=== PATIENT | male | born 1940 | race Caucasian/White ===

== ENCOUNTER 2020-02-20 09:45 | Outpatient (REF) | payer MEDICARE, BC, SELFPAY ==
[2020-02-20 11:23] LABS: MANUAL DIFF FLAG NO
[2020-02-20 11:44] LABS: Basophils Percent Auto 0.3 % (0-2); Eosinophils Absolute Auto 0.2 X10*3/uL (0.0-0.4); Eosinophils Percent Auto 1.6 % (0-4); Hematocrit 44.2 % (42-52); Hemoglobin 14.8 g/dl (14.0-18.0); Imm Gran Abs Auto 0.04 X10*3/uL (0.00-0.03); Imm Gran Pct Auto 0.4 % (0.0-0.4); Lymphocytes Absolute Auto 2.4 X10*3/uL (1.2-4.9); Lymphocytes Percent Auto 23.4 % (20-40); Mean Corpuscular HGB Conc 33.5 g/dl (31.0-36.0); Mean Corpuscular Hemoglobin 32.6 pg (27.0-33.0); Mean Corpuscular Volume 97.4 fL (80-98); Mean Platelet Volume 11.3 fL (9.4-12.4); Monocytes Absolute Auto 1.1 X10*3/uL (0.1-1.2); Monocytes Percent Auto 10.9 % (2-11); Neutrophils Absolute Auto 6.6 X10*3/uL (2.0-8.3); Neutrophils Percent Auto 63.4 % (45-73); Platelet Count 250 X10*3/uL (160-400); Red Blood Count 4.54 X10*6/uL (4.60-5.80); Red Cell Distribution Width 12.9 % (11.0-16.0); White Blood Count 10.3 X10*3/uL (4.8-10.8)
[2020-02-20 11:57] LABS: Alanine Aminotransferase 21 U/L (0-40); Albumin Level 4.1 g/dL (3.5-5.0); Alkaline Phosphatase 59 U/L (39-117); Anion Gap 13 (12-20); Aspartate Amino Transferase 22 U/L (5-37); Bilirubin Total 1.6 mg/dL (0.0-1.0); Blood Urea Nitrogen 32 mg/dL (9-16); Calcium 9.2 mg/dL (8.4-10.2); Carbon Dioxide 28 mmol/L (22-29); Chloride 105 mmol/L (96-108); Cholesterol 136 mg/dL; Estimated Glomerular Filt Rate 48; Glucose Fasting 91 mg/dL (60-99); HDL Cholesterol 38 mg/dL; LDL Cholesterol Calculated 82 mg/dl; Potassium 5.4 mmol/l (3.3-5.1); Sodium 141 mmol/L (135-145); Total Protein 6.3 g/dL (6.5-8.0); Triglycerides 80 mg/dL
[2020-02-20 12:23] LABS: TSH reflex Free T4 2.38 mIU/mL (0.32-4.0)
== END 2020-02-20 09:46 | disposition home or self-care (01) ==
LOC: HO.HMGCLDS 09:45
PROVIDERS: PCP Internal Medicine; Visit Provider Internal Medicine
DX: E78.5 Hyperlipidemia, unspecified (principal); N40.0 Benign prostatic hyperplasia without lower urinary tract symptoms; I73.9 Peripheral vascular disease, unspecified; I10 Essential (primary) hypertension
CPT/HCPCS: 36415; 80053; 80061; 84443; 85025

== ENCOUNTER 2020-03-07 09:28 | Outpatient (REF) | payer MEDICARE, BC, SELFPAY ==
[2020-03-07 11:51] LABS: Anion Gap 13 (12-20); Blood Urea Nitrogen 21 mg/dL (9-16); Calcium 8.9 mg/dL (8.4-10.2); Carbon Dioxide 28 mmol/L (22-29); Chloride 108 mmol/L (96-108); Estimated Glomerular Filt Rate 51; Glucose Fasting 89 mg/dL (60-99); Potassium 5.2 mmol/l (3.3-5.1); Sodium 144 mmol/L (135-145)
== END 2020-03-07 09:29 | disposition home or self-care (01) ==
LOC: HO.HMGCLDS 09:28
PROVIDERS: PCP Internal Medicine; Visit Provider Internal Medicine
DX: E87.5 Hyperkalemia (principal); I10 Essential (primary) hypertension
CPT/HCPCS: 80048

== ENCOUNTER 2020-08-12 09:33 | Outpatient (REF) | payer MEDICARE, BC, SELFPAY ==
[2020-08-12 11:46] LABS: Alanine Aminotransferase 21 U/L (0-40); Anion Gap 13 (12-20); Aspartate Amino Transferase 20 U/L (5-37); Blood Urea Nitrogen 27 mg/dL (9-16); Carbon Dioxide 25 mmol/L (22-29); Chloride 107 mmol/L (96-108); Cholesterol 137 mg/dL; Estimated Glomerular Filt Rate 48; Glucose Fasting 86 mg/dL (60-99); HDL Cholesterol 39 mg/dL; LDL Cholesterol Calculated 79 mg/dl; Potassium 4.9 mmol/L (3.3-5.1); Sodium 140 mmol/L (135-145); Triglycerides 95 mg/dL
== END 2020-08-12 09:34 | disposition home or self-care (01) ==
LOC: HO.HMGCLDS 09:33
PROVIDERS: PCP Internal Medicine; Visit Provider Internal Medicine
DX: E87.5 Hyperkalemia (principal); E78.5 Hyperlipidemia, unspecified; I10 Essential (primary) hypertension
CPT/HCPCS: 36415; 80048; 80061; 84450; 84460

== ENCOUNTER 2021-04-07 08:30 | Outpatient (REF) | payer MEDICARE, BC, SELFPAY ==
[2021-04-07 12:11] LABS: Vitamin D 25-OH Total 23.3 ng/mL (>30)
[2021-04-07 12:12] LABS: Alanine Aminotransferase 17 U/L (0-40); Anion Gap 13 (12-20); Aspartate Amino Transferase 15 U/L (5-37); Blood Urea Nitrogen 33 mg/dL (9-16); Calcium 9.1 mg/dL (8.4-10.2); Carbon Dioxide 26 mmol/L (22-29); Chloride 108 mmol/L (96-108); Cholesterol 160 mg/dL; Estimated Glomerular Filt Rate 45; Glucose Fasting 85 mg/dL (60-99); HDL Cholesterol 42 mg/dL; LDL Cholesterol Calculated 90 mg/dl; Sodium 142 mmol/L (135-145); Triglycerides 140 mg/dL
[2021-04-07 12:19] LABS: Prostate Specific Antigen 4.68 ng/mL (<0.05-4.0)
== END 2021-04-07 08:31 | disposition home or self-care (01) ==
LOC: HO.HMGCLDS 08:30
PROVIDERS: PCP Internal Medicine; Visit Provider Urology
DX: Z12.5 Encounter for screening for malignant neoplasm of prostate (principal); R97.20 Elevated prostate specific antigen [PSA]; E78.5 Hyperlipidemia, unspecified; I10 Essential (primary) hypertension
CPT/HCPCS: 36415; 80048; 80061; 82306; 84153; 84450; 84460

== ENCOUNTER 2021-08-28 08:33 | Outpatient (REF) | payer MEDICARE, BC, SELFPAY ==
[2021-08-28 12:37] LABS: Vitamin D 25-OH Total 44.9 ng/mL (>30)
== END 2021-08-28 08:34 | disposition home or self-care (01) ==
LOC: HO.HMGCLDS 08:33
PROVIDERS: PCP Internal Medicine; Visit Provider Internal Medicine
DX: E55.9 Vitamin D deficiency, unspecified (principal)
CPT/HCPCS: 36415; 82306

== ENCOUNTER 2022-03-30 11:48 | Outpatient (REF) | payer MEDICARE, BC, SELFPAY ==
[2022-03-30 16:27] LABS: Prostate Specific Antigen 4.73 ng/mL (<0.05-4.0)
== END 2022-03-30 11:49 | disposition home or self-care (01) ==
LOC: HO.HMGCLDS 11:48
PROVIDERS: Absent Provider Internal Medicine; PCP Internal Medicine; Visit Provider Nurse Practitioner Family
DX: R97.20 Elevated prostate specific antigen [PSA] (principal); Z12.5 Encounter for screening for malignant neoplasm of prostate
CPT/HCPCS: 36415; 84153

== ENCOUNTER 2022-06-04 12:08 | Emergency (ER) | payer MEDICARE, BC, SELFPAY ==
--- NOTE | ~2022-06-04 | XR_ITS ---
EXAMINATION: XR CHEST CLINICAL INFORMATION: Dizziness and neck pain. COMPARISON: None available. TECHNIQUE: 2 views of the chest were obtained. FINDINGS: The lungs are well-expanded and clear. The heart size and pulmonary vascularity is normal. No gross bony abnormality seen. XR/XR chest 2V IMPRESSION: Unremarkable chest exam. .
--- NOTE | ~2022-06-04 | CT_ITS ---
EXAMINATION: CT HEAD WITHOUT CONTRAST CLINICAL INFORMATION: Vertigo. COMPARISON: None available. TECHNIQUE: Contiguous axial imaging was performed from the skull base to vertex without intravenous administration of contrast. This CT examination was performed using dose optimization techniques as appropriate, variously including the following: *Automated exposure control *Adjustment of mA and/or kV according to patient size (this includes techniques or standardized protocols for targeted exams where dose is matched to indication/reason for exam; i.e. extremities or head) *Use of iterative reconstruction technique DLP: 541 mGy-cm FINDINGS: There is no acute intra-axial, extra-axial bleed, masses or midline shift. There is no acute infarction in evolution. The suh to white matter differentiation is maintained. The lateral ventricles are symmetrical in size and configuration without enlargement. Bone windows reveal no calvarial abnormality. There is no scalp soft tissue normality. There is mild mucoperiosteal thickening right mastoid sinus. The left mastoid sinus and bilateral paranasal sinuses are well-aerated. CT/CT head/brain wo IV con IMPRESSION: No acute intracranial process seen
[2022-06-04 12:15] VITALS: BP 156/48; PULSE 52; RESP 16; TEMP 36.1; O2SAT 97; BMI 29.2
--- NOTE | 2022-06-04 12:15 | ED.GENADULT ---
HPI - General Adult General Chief complaint: Weakness <SONNY Bruner - Last Filed: 06/04/22 12:15> Stated complaint: weakness, dizzy, arm and neck pain <SONNY Bruner - Last Filed: 06/04/22 12:15> Time Seen by Provider: 06/04/22 15:13 <SONNY Bruner - Last Filed: 06/04/22 12:15> Source: patient <Rainer Richardson MD - Last Filed: 06/04/22 16:53> Mode of arrival: ambulatory <Rainer Richardson MD - Last Filed: 06/04/22 16:53> Limitations: no limitations <Rainer Richardson MD - Last Filed: 06/04/22 16:53> History of Present Illness HPI narrative: patient with weakness and dizziness for the past couple of day. By midday he is exhausted and takes a long nap. He did feel the room spinning once but now it is mostly a balance issue. <Rainer Richardson MD - Last Filed: 06/04/22 16:53> Onset (ago): day(s) <Rainer Richardson MD - Last Filed: 06/04/22 16:53> Severity: mild <Rainer Richardson MD - Last Filed: 06/04/22 16:53> Related Data Home medications: Home Medications Medication Instructions Recorded Confirmed [id number] acid 300 1 tab PO DAILY 06/17/21 06/04/22 mcg-lycopene 600 mcg-lutein 300 mcg tablet (Centrum Silver Men) Previous Rx's Medication Instructions Recorded blood pressure monitor #1 ea 02/26/20 tamsulosin 0.4 mg capsule 0.4 mg PO BEDTIME #90 caps 07/27/21 amlodipine 5 mg tablet 5 mg PO DAILY #90 tabs 07/29/21 aspirin 81 mg tablet,delayed 81 mg PO DAILY #90 tabs 07/29/21 release (Adult Low Dose Aspirin) atorvastatin 40 mg tablet 40 mg PO DAILY #90 tabs 07/29/21 metoprolol succinate 100 mg 100 mg PO DAILY #90 tabs 07/29/21 tablet,extended release 24 hr lisinopril 20 mg tablet 20 mg PO ONCE 3 months #90 tabs 01/25/22 meclizine 25 mg tablet 25 mg PO TID #20 tabs 06/04/22 <SONNY Bruner - Last Filed: 06/04/22 12:15> Allergies/adverse reactions: Allergies Allergy/AdvReac Type Severity Reaction Status Date / Time No Known Allergies Allergy Verified 06/04/22 11:15 [No Known Allergies*] <SONNY Bruner - Last Filed: 06/04/22 12:15> Review of Systems Review of Systems: Yes all other systems are reviewed and are negative <Rainer Richardson MD - Last Filed: 06/04/22 16:53> Constitutional: Comments: dizziness and vertigo <Rainer Richardson MD - Last Filed: 06/04/22 16:53> FOR[facility]LY [facility], LATER [facility] Past Medical History Medical History: Medical History Benign prostatic hyperplasia CAD (coronary artery disease) CKD (chronic kidney disease) stage 2, GFR 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 ml/min Diverticulosis Dyslipidemia Essential hypertension Former smoker, stopped smoking in distant past Gallstone History of DVT of lower extremity Hx of myocardial infarction Hyperkalemia PVD (peripheral vascular disease) <SONNY Bruner - Last Filed: 06/04/22 12:15> Surgical History: Surgical History Status post insertion of iliac artery stent <SONNY Bruner - Last Filed: 06/04/22 12:15> Family History Family History: Family History Father Heart problem Mother Heart problem <SONNY Bruner - Last Filed: 06/04/22 12:15> Social History Social History: Social History Alcohol intake: current Alcohol intake frequency: a few times a week Alcohol type: wine Patient Tobacco Use Status: Former Tobacco user Advance Directives: No Advance Directives Information Provided: Yes <SONNY Bruner - Last Filed: 06/04/22 12:15> Physical Exam ED Vital Signs: Vital Signs - 24 hr 06/04/22 12:15 Temperature 97.0 F Pulse Rate 52 Respiratory Rate 16 Blood Pressure 156/48 H Pulse Oximetry 97 Oxygen Delivery Method Room Air BMI result Body Mass Index 29.2 <SONNY Bruner - Last Filed: 06/04/22 12:15> Vital Signs - 24 hr 06/04/22 12:15 Temperature 97.0 F Pulse Rate 52 Respiratory Rate 16 Blood Pressure 156/48 H Pulse Oximetry 97 Oxygen Delivery Method Room Air BMI result Body Mass Index 29.2 <Rainer Richardson MD - Last Filed: 06/04/22 16:53> Const General: healthy appearing <Rainer Richardson MD - Last Filed: 06/04/22 16:53> Nutritional Appearance: average body habitus <Rainer Richardson MD - Last Filed: 06/04/22 16:53> Orientation/consciousness: oriented to person and patient oriented x3 <Rainer Richardson MD - Last Filed: 06/04/22 16:53> Limitations: no limitations <Rainer Richardson MD - Last Filed: 06/04/22 16:53> HENMT Other: right TM with myringostomy tube <Rainer Richardson MD - Last Filed: 06/04/22 16:53> Head: Yes normal to inspection <Rainer Richardson MD - Last Filed: 06/04/22 16:53> General nose exam: Normal external nose present <Rainer Richardson MD - Last Filed: 06/04/22 16:53> Mouth: Normal oral and palatal mucosa present and oropharynx normal <Rainer Richardson MD - Last Filed: 06/04/22 16:53> Throat: Yes posterior oropharynx normal <Rainer Richardson MD - Last Filed: 06/04/22 16:53> Eyes Other: nystagmus right and left with no nausea <Rainer Richardson MD - Last Filed: 06/04/22 16:53> Neck Neck: Yes normal visual inspection <Rainer Richardson MD - Last Filed: 06/04/22 16:53> Chest Chest palpation & inspection: normal inspection of the chest <Rainer Richardson MD - Last Filed: 06/04/22 16:53> Resp Auscultation: clear to auscultation bilaterally <Rainer Richardson MD - Last Filed: 06/04/22 16:53> Cardio Jugular venous distension: no JVD <Rainer Richardson MD - Last Filed: 06/04/22 16:53> Rate: regular rate <Rainer Richardson MD - Last Filed: 06/04/22 16:53> Rhythm: regular rhythm <Rainer Richardson MD - Last Filed: 06/04/22 16:53> Heart sounds: S1 normal heart sound present and S2 normal heart sound present <Rainer Richardson MD - Last Filed: 06/04/22 16:53> GI Inspection: Yes normal to inspection <Rainer Richardson MD - Last Filed: 06/04/22 16:53> Palpation (GI): Soft to palpation, nontender and No hepatosplenomegaly present <Rainer Richardson MD - Last Filed: 06/04/22 16:53> Auscultation: normal bowel sounds <Rainer Richardson MD - Last Filed: 06/04/22 16:53> General: Yes no CVA tenderness <Rainer Richardson MD - Last Filed: 06/04/22 16:53> Back/Spine/Pelvis Back: no CVA tenderness <Rainer Richardson MD - Last Filed: 06/04/22 16:53> Skin General skin exam: no rashes or lesions noted <Rainer Richardson MD - Last Filed: 06/04/22 16:53> Neuro General: oriented to person and patient oriented x3 <Rainer Richardson MD - Last Filed: 06/04/22 16:53> Cranial nerves: Yes CN's II-XII intact bilaterally <Rainer Richardson MD - Last Filed: 06/04/22 16:53> Motor exam (neuro): 5/5 motor strength present throughout <Rainer Richardson MD - Last Filed: 06/04/22 16:53> Extrem General: Yes normal to inspection <Rainer Richardson MD - Last Filed: 06/04/22 16:53> Psych Appearance: grossly normal <Rainer Richardson MD - Last Filed: 06/04/22 16:53> Course Course Course Narrative: RME performed by Sonia Abraham PA-C. Patient is an 81 year old male with a hx of CAD, PVD, HTN, and CKD. Patient was seen at urgent care where they recommended he be seen in the ER. Patient is tired and weak. Labs and EKG ordered. <SONNY Bruner - Last Filed: 06/04/22 12:15> Reevaluation(s) Reevaluation #1: Impression is vertigo will start meclizine and dc home <Rainer Richardson MD - Last Filed: 06/04/22 16:53> Time: 16:06 <Rainer Richardson MD - Last Filed: 06/04/22 16:53> Medications Administered Discontinued Medications Generic Name Dose Route Start Last Admin Trade Name Freq PRN Reason Stop Dose Admin Meclizine HCl 25 mg 06/04/22 15:53 06/04/22 16:35 Meclizine Hcl 25 Mg Tablet PO 06/04/22 15:54 25 mg ONCE ONE Administration <SONNY Bruner - Last Filed: 06/04/22 12:15> Medications Administered Discontinued Medications Generic Name Dose Route Start Last Admin Trade Name Freq PRN Reason Stop Dose Admin Meclizine HCl 25 mg 06/04/22 15:53 06/04/22 16:35 Meclizine Hcl 25 Mg Tablet PO 06/04/22 15:54 25 mg ONCE ONE Administration <Rainer Richardson MD - Last Filed: 06/04/22 16:53> Medical Decision Making Differential Diagnosis Differential Diagnoses: The differential diagnosis associated with the presentation includes (vertigo, brain mass, anemia, weakness, electrolyte abnormality all considered) <Rainer Richardson MD - Last Filed: 06/04/22 16:53> Admission/Observation Consideration of admission/observation: Escalation of care including admission/observation considered (In and 81yo with worsening dizziness and weakness, admission was considered) <Rainer Richardson MD - Last Filed: 06/04/22 16:53> Lab Data MDM Lab Attestation statement: I reviewed the patient's lab results. (renal insufficiency is chronic) <Rainer Richardson MD - Last Filed: 06/04/22 16:53> Result Diagrams: 06/04/22 12:34 06/04/22 12:34 <SONNY Bruner - Last Filed: 06/04/22 12:15> Labs: Lab Results 06/04/22 06/04/22 06/04/22 Range/Units 12:34 12:34 12:34 WBC 8.1 (4.8-10.8) X10*3/uL RBC 4.52 L (4.60-5.80) X10*6/uL Hgb 14.5 (14.0-18.0) g/dl Hct 42.9 (42.0-52.0) % MCV 94.9 (80.0-98.0) fL MCH 32.1 (27.0-33.0) pg MCHC 33.8 (31.0-36.0) g/dl RDW 13.1 (11.0-16.0) % Plt Count 232 (160-400) X10*3/uL MPV 10.3 (9.4-12.4) fL Immature Gran % (Auto) 0.4 (0.0-0.4) % Neut % (Auto) 56.1 (45-73) % Lymph % (Auto) 29.9 (20-40) % Sanders % (Auto) 11.3 H (2-11) % Eos % (Auto) 2.1 (0-4) % Baso % (Auto) 0.2 (0-2) % Lymph # (Auto) 2.4 (1.2-4.9) X10*3/uL Sanders # (Auto) 0.9 (0.1-1.2) X10*3/uL Eos # (Auto) 0.2 (0.0-0.4) X10*3/uL Baso # (Auto) 0.0 (0.0-0.2) X10*3/uL Abs Immat Gran (auto) 0.03 (0.00-0.03) X10*3/uL Absolute Neuts (auto) 4.5 (2.0-8.3) x10*3/uL Absolute Nucleated RBC 0.000 (0.0-0.012) X10*3/uL Nucleated RBC % (auto) 0.0 (0.0-0.2) /100WBC Sodium 140 (135-145) mmol/L Potassium 4.6 (3.3-5.1) mmol/L Chloride 110 H (96-108) mmol/L Carbon Dioxide 25 (22-29) mmol/L Anion Gap 10 L (12-20) BUN 30 H (9-16) mg/dL Creatinine 1.69 H (0.5-1.4) mg/dL Estim Creat Clear Calc 32.1 Estimated GFR 39 Random Glucose 98 (60-115) mg/dL Calcium 8.5 D (8.4-10.2) mg/dL Magnesium 2.1 (1.6-2.6) mg/dL Total Bilirubin 1.8 H (0.0-1.0) mg/dL AST 23 (5-37) U/L ALT 25 (0-40) U/L Alkaline Phosphatase 59 (39-117) U/L Troponin I High Sens (<3.5-35.0) ng/L B-Natriuretic Peptide 92 (<100) pg/mL Total Protein 5.8 L (6.5-8.0) g/dL Albumin 3.7 (3.5-5.0) g/dL COVID-19 (KAREN) (Negative) COVID-19 Clin Com 06/04/22 06/04/22 Range/Units 12:34 12:34 WBC (4.8-10.8) X10*3/uL RBC (4.60-5.80) X10*6/uL Hgb (14.0-18.0) g/dl Hct (42.0-52.0) % MCV (80.0-98.0) fL MCH (27.0-33.0) pg MCHC (31.0-36.0) g/dl RDW (11.0-16.0) % Plt Count (160-400) X10*3/uL MPV (9.4-12.4) fL Immature Gran % (Auto) (0.0-0.4) % Neut % (Auto) (45-73) % Lymph % (Auto) (20-40) % Sanders % (Auto) (2-11) % Eos % (Auto) (0-4) % Baso % (Auto) (0-2) % Lymph # (Auto) (1.2-4.9) X10*3/uL Sanders # (Auto) (0.1-1.2) X10*3/uL Eos # (Auto) (0.0-0.4) X10*3/uL Baso # (Auto) (0.0-0.2) X10*3/uL Abs Immat Gran (auto) (0.00-0.03) X10*3/uL Absolute Neuts (auto) (2.0-8.3) x10*3/uL Absolute Nucleated RBC (0.0-0.012) X10*3/uL Nucleated RBC % (auto) (0.0-0.2) /100WBC Sodium (135-145) mmol/L Potassium (3.3-5.1) mmol/L Chloride (96-108) mmol/L Carbon Dioxide (22-29) mmol/L Anion Gap (12-20) BUN (9-16) mg/dL Creatinine (0.5-1.4) mg/dL Estim Creat Clear Calc Estimated GFR Random Glucose (60-115) mg/dL Calcium (8.4-10.2) mg/dL Magnesium (1.6-2.6) mg/dL Total Bilirubin (0.0-1.0) mg/dL AST (5-37) U/L ALT (0-40) U/L Alkaline Phosphatase (39-117) U/L Troponin I High Sens 5.6 (<3.5-35.0) ng/L B-Natriuretic Peptide (<100) pg/mL Total Protein (6.5-8.0) g/dL Albumin (3.5-5.0) g/dL COVID-19 (KAREN) Negative (Negative) COVID-19 Clin Com See Note <SONNY Bruner - Last Filed: 06/04/22 12:15> Lab Results 06/04/22 06/04/22 06/04/22 Range/Units 12:34 12:34 12:34 WBC 8.1 (4.8-10.8) X10*3/uL RBC 4.52 L (4.60-5.80) X10*6/uL Hgb 14.5 (14.0-18.0) g/dl Hct 42.9 (42.0-52.0) % MCV 94.9 (80.0-98.0) fL MCH 32.1 (27.0-33.0) pg MCHC 33.8 (31.0-36.0) g/dl RDW 13.1 (11.0-16.0) % Plt Count 232 (160-400) X10*3/uL MPV 10.3 (9.4-12.4) fL Immature Gran % (Auto) 0.4 (0.0-0.4) % Neut % (Auto) 56.1 (45-73) % Lymph % (Auto) 29.9 (20-40) % Sanders % (Auto) 11.3 H (2-11) % Eos % (Auto) 2.1 (0-4) % Baso % (Auto) 0.2 (0-2) % Lymph # (Auto) 2.4 (1.2-4.9) X10*3/uL Sanders # (Auto) 0.9 (0.1-1.2) X10*3/uL Eos # (Auto) 0.2 (0.0-0.4) X10*3/uL Baso # (Auto) 0.0 (0.0-0.2) X10*3/uL Abs Immat Gran (auto) 0.03 (0.00-0.03) X10*3/uL Absolute Neuts (auto) 4.5 (2.0-8.3) x10*3/uL Absolute Nucleated RBC 0.000 (0.0-0.012) X10*3/uL Nucleated RBC % (auto) 0.0 (0.0-0.2) /100WBC Sodium 140 (135-145) mmol/L Potassium 4.6 (3.3-5.1) mmol/L Chloride 110 H (96-108) mmol/L Carbon Dioxide 25 (22-29) mmol/L Anion Gap 10 L (12-20) BUN 30 H (9-16) mg/dL Creatinine 1.69 H (0.5-1.4) mg/dL Estim Creat Clear Calc 32.1 Estimated GFR 39 Random Glucose 98 (60-115) mg/dL Calcium 8.5 D (8.4-10.2) mg/dL Magnesium 2.1 (1.6-2.6) mg/dL Total Bilirubin 1.8 H (0.0-1.0) mg/dL AST 23 (5-37) U/L ALT 25 (0-40) U/L Alkaline Phosphatase 59 (39-117) U/L Troponin I High Sens (<3.5-35.0) ng/L B-Natriuretic Peptide 92 (<100) pg/mL Total Protein 5.8 L (6.5-8.0) g/dL Albumin 3.7 (3.5-5.0) g/dL COVID-19 (KAREN) (Negative) COVID-19 Clin Com 06/04/22 06/04/22 Range/Units 12:34 12:34 WBC (4.8-10.8) X10*3/uL RBC (4.60-5.80) X10*6/uL Hgb (14.0-18.0) g/dl Hct (42.0-52.0) % MCV (80.0-98.0) fL MCH (27.0-33.0) pg MCHC (31.0-36.0) g/dl RDW (11.0-16.0) % Plt Count (160-400) X10*3/uL MPV (9.4-12.4) fL Immature Gran % (Auto) (0.0-0.4) % Neut % (Auto) (45-73) % Lymph % (Auto) (20-40) % Sanders % (Auto) (2-11) % Eos % (Auto) (0-4) % Baso % (Auto) (0-2) % Lymph # (Auto) (1.2-4.9) X10*3/uL Sanders # (Auto) (0.1-1.2) X10*3/uL Eos # (Auto) (0.0-0.4) X10*3/uL Baso # (Auto) (0.0-0.2) X10*3/uL Abs Immat Gran (auto) (0.00-0.03) X10*3/uL Absolute Neuts (auto) (2.0-8.3) x10*3/uL Absolute Nucleated RBC (0.0-0.012) X10*3/uL Nucleated RBC % (auto) (0.0-0.2) /100WBC Sodium (135-145) mmol/L Potassium (3.3-5.1) mmol/L Chloride (96-108) mmol/L Carbon Dioxide (22-29) mmol/L Anion Gap (12-20) BUN (9-16) mg/dL Creatinine (0.5-1.4) mg/dL Estim Creat Clear Calc Estimated GFR Random Glucose (60-115) mg/dL Calcium (8.4-10.2) mg/dL Magnesium (1.6-2.6) mg/dL Total Bilirubin (0.0-1.0) mg/dL AST (5-37) U/L ALT (0-40) U/L Alkaline Phosphatase (39-117) U/L Troponin I High Sens 5.6 (<3.5-35.0) ng/L B-Natriuretic Peptide (<100) pg/mL Total Protein (6.5-8.0) g/dL Albumin (3.5-5.0) g/dL COVID-19 (KAREN) Negative (Negative) COVID-19 Clin Com See Note <Rainer Richardson MD - Last Filed: 06/04/22 16:53> Independent Interpretation I performed an independent interpretation of an: EKG (sinus bradycardia no st or twave changes) and CT Scan (head ct: atrophy, no mass, blood or lesions noted) <Rainer Richardson MD - Last Filed: 06/04/22 16:53> Discharge Plan Discharge Clinical Impression: Vertigo <SONNY Bruner - Last Filed: 06/04/22 12:15> Patient Disposition: Still a Patient <SONNY Bruner - Last Filed: 06/04/22 12:15> Instructions: Vertigo (ED) <SONNY Bruner - Last Filed: 06/04/22 12:15> Prescriptions: New meclizine 25 mg tablet 25 mg PO TID Qty: 20 0RF Rx Instructions: take only for dizziness No Action (DME) blood pressure monitor Kit See Rx Instructions .ROUTE .MEDSUPPLY Qty: 1 0RF Rx Instructions: Check blood pressure as directed tamsulosin 0.4 mg capsule 0.4 mg PO BEDTIME Qty: 90 3RF atorvastatin 40 mg tablet 40 mg PO DAILY Qty: 90 3RF aspirin [Adult Low Dose Aspirin] 81 mg tablet,delayed release (DR/EC) 81 mg PO DAILY Qty: 90 3RF amlodipine 5 mg tablet 5 mg PO DAILY Qty: 90 3RF metoprolol succinate 100 mg tablet extended release 24 hr 100 mg PO DAILY Qty: 90 3RF lisinopril 20 mg tablet 20 mg PO ONCE 90 Days Qty: 90 1RF Centrum Silver Men 300-600-300 mcg tablet 1 tab PO DAILY <SONNY Bruner - Last Filed: 06/04/22 12:15> Referrals: Krissy Alaniz MD [Primary Care Provider] - 5 days <SONNY Bruner - Last Filed: 06/04/22 12:15>
--- NOTE | 2022-06-04 12:16 | ECG_ITS ---
Test Reason : weakness Blood Pressure : / mmHG Vent. Rate : 051 BPM Atrial Rate : 051 BPM P-R Int : 180 ms QRS Dur : 086 ms QT Int : 450 ms P-R-T Axes : 031 018 059 degrees QTc Int : 414 ms Sinus bradycardia Possible Anterior infarct , age undetermined Abnormal ECG When compared with ECG of 19-AUG-2019 06:37, No significant change was found Referred By: Sonia Abraham Electronically Signed By:Jermaine Marcus
[2022-06-04 12:41] LABS: MANUAL DIFF FLAG NO
[2022-06-04 12:43] LABS: Basophils Percent Auto 0.2 % (0-2); Eosinophils Absolute Auto 0.2 X10*3/uL (0.0-0.4); Eosinophils Percent Auto 2.1 % (0-4); Hematocrit 42.9 % (42.0-52.0); Hemoglobin 14.5 g/dl (14.0-18.0); Imm Gran Abs Auto 0.03 X10*3/uL (0.00-0.03); Imm Gran Pct Auto 0.4 % (0.0-0.4); Lymphocytes Absolute Auto 2.4 X10*3/uL (1.2-4.9); Lymphocytes Percent Auto 29.9 % (20-40); Mean Corpuscular HGB Conc 33.8 g/dl (31.0-36.0); Mean Corpuscular Hemoglobin 32.1 pg (27.0-33.0); Mean Corpuscular Volume 94.9 fL (80.0-98.0); Mean Platelet Volume 10.3 fL (9.4-12.4); Monocytes Absolute Auto 0.9 X10*3/uL (0.1-1.2); Monocytes Percent Auto 11.3 % (2-11); Neutrophils Absolute Auto 4.5 x10*3/uL (2.0-8.3); Neutrophils Percent Auto 56.1 % (45-73); Platelet Count 232 X10*3/uL (160-400); Red Blood Count 4.52 X10*6/uL (4.60-5.80); Red Cell Distribution Width 13.1 % (11.0-16.0); White Blood Count 8.1 X10*3/uL (4.8-10.8)
[2022-06-04 12:57] LABS: Alanine Aminotransferase 25 U/L (0-40); Albumin Level 3.7 g/dL (3.5-5.0); Alkaline Phosphatase 59 U/L (39-117); Anion Gap 10 (12-20); Aspartate Amino Transferase 23 U/L (5-37); Bilirubin Total 1.8 mg/dL (0.0-1.0); Blood Urea Nitrogen 30 mg/dL (9-16); Calcium 8.5 mg/dL (8.4-10.2); Carbon Dioxide 25 mmol/L (22-29); Chloride 110 mmol/L (96-108); Creatinine Clr Calc Pharmacy 32.1; Estimated Glomerular Filt Rate 39; Glucose Random 98 mg/dL (60-115); Magnesium 2.1 mg/dL (1.6-2.6); Potassium 4.6 mmol/L (3.3-5.1); Sodium 140 mmol/L (135-145); Total Protein 5.8 g/dL (6.5-8.0)
[2022-06-04 13:02] LABS: B Type Natriuretic Peptide 92 pg/mL (<100)
[2022-06-04 13:03] LABS: COVID-19 Test Negative (Negative); IDNOW Serial# 08D9AD1C
[2022-06-04 13:06] LABS: Troponin-I High Sensitivity 5.6 ng/L (<3.5-35.0)
--- NOTE | 2022-06-04 14:46 | PC.NURSE ---
pt referred froM for x2 weeks of increasing weakness and fatigue with associated dizziness. pt in gown, on monitor, resting comfortably, labs resulted, EKG done
--- NOTE | 2022-06-04 16:04 | PC.NURSE ---
pt at CT
[2022-06-04] MEDS: Meclizine HCl 25 MG TABLET PO (16:35)
== END 2022-06-04 17:03 | disposition home or self-care (01) ==
PROVIDERS: Physician Assistant Medical; Emergency Provider Emergency Medicine; PCP Internal Medicine
DX: R42 Dizziness and giddiness (principal); R06.02 Shortness of breath; R53.1 Weakness; I10 Essential (primary) hypertension; Z20.822 Contact with and (suspected) exposure to COVID-19; Z20.828 Contact with and (suspected) exposure to other viral communicable diseases; Z79.899 Other long term (current) drug therapy; Z87.891 Personal history of nicotine dependence
CPT/HCPCS: 36415; 70450; 71046; 80053; 83735; 83880; 84484; 85025; 87635; 93005; 99283; 99284

== ENCOUNTER 2022-06-23 07:44 | Outpatient (AMB) | payer MEDICARE, BC, SELFPAY ==
--- NOTE | 2022-06-23 07:47 | A.OFFPC_ITS ---
Vital Signs 06/23/22 07:50 Height 5 ft 4 in Weight 175 lb BMI 30.0 BP 136/60 Blood Pressure Location Rt brachial Position Sitting Pulse 54 Pulse Source Pulse Oximeter Pulse Oximetry (%) 97 Oxygen Delivery Method Room Air Intake Visit Reasons: PE Intake Note: Pt is here today for his PE Allergies No Known Allergies [No Known Allergies*] Allergy (Verified 12/22/22 12:10) Medication List - Last Reconciled 01/19/23 by Krissy Alaniz MD amlodipine 5 mg PO DAILY aspirin (Adult Low Dose Aspirin) 81 mg PO DAILY atorvastatin 40 mg PO DAILY blood pressure monitor Check blood pressure as directed cholecalciferol (vitamin D3) 125 mcg PO DAILY lisinopril 20 mg PO ONCE 3 months metoprolol succinate ER 100 mg PO DAILY [id number] mcg (Centrum Silver Men) 1 tab PO DAILY tamsulosin 0.4 mg PO BEDTIME Tobacco use date assessed: 06/23/22 Fall risk assessment: No Falls in past year Last assessed Fall Risk: 06/23/22 HPI PE HPI Details 82-year-old male with CKD, hypertension, dyslipidemia and refer vascular disease coronary artery disease, here today for his physical exam. He has been feeling well with no complaints at present time. PENDING SALE TO [facility] Medical History Sinus bradycardia Positional lightheadedness Gallstone CKD (chronic kidney disease) stage 2, GFR 60-89 ml/min Diverticulosis History of DVT of lower extremity Former smoker, stopped smoking in distant past Hx of myocardial infarction CAD (coronary artery disease) Hyperkalemia Benign prostatic hyperplasia PVD (peripheral vascular disease) Essential hypertension Dyslipidemia Surgical History Status post insertion of iliac artery stent Family History Father Heart problem Substance use disorder Mother Heart problem Social History Housing: Apartment Alcohol intake: current Alcohol intake frequency: a few times a week Alcohol type: wine Patient Tobacco Use Status: Former Tobacco user e-Cigarette/Vaping Use: Never Used service: No Current occupational status: retired Cognitive needs: No Hearing needs: No Vision needs: Yes Questionnaire PHQ-9 Over the last 2 weeks, how often have you been bothered by any of the following problems? 1. Little interest or pleasure in doing things: not at all 2. Feeling down, depressed, or hopeless: not at all 3. Trouble falling or staying asleep, or sleeping too much: not at all 4. Feeling tired or having little energy: not at all 5. Poor appetite or overeating: not at all 6. Feeling bad about yourself - or that you are a failure or have let yourself or your family down: not at all 7. Trouble concentrating on things, such as reading the newspaper or watching television: not at all 8. Moving or speaking so slowly that other people could have noticed. Or the opposite - being so fidgety or restless that you have been moving around a lot more than usual: not at all 9. Thoughts that you would be better off or of hurting yourself in some way: not at all Total score: 0 Depression Screening Interpretation: Negative 07199 - PHQ-9 Billing: Yes Source: Developed by Drs. Gino Birch, Elissa Urena, Saw Zepeda and colleagues, with an educational guille from [employer]. Thrive Questionnaire Declines Thrive assessment: No Date Thrive assessed: 06/23/22 I am a: Patient What is your living situation today?: I have a steady place to live Within the past 12 months, did the food you bought not last and you didn't have the money to get more?: Never true Within the past 12 months, did you worry whether your food would run out before you got money to buy more?: Never true Do you have trouble paying for medicines?: No Do you have trouble getting transportation to medical appointments?: No Do you have trouble paying your heating and electricity bill?: No Do you have trouble taking care of your child, family member or friend?: No Do you have trouble with day-to-day activities such as bathing, preparing meals, shopping, managing finances, etc.?: No Are you currently unemployed and looking for a job?: No Are you interested in more education?: No AUDIT C Alcohol Use Questionnaire (AUDIT-C) 1. How often do you have a drink containing alcohol?: 4 or more times a week 2. How many drinks containing alcohol do you have on a typical day when you are drinking?: 1 or 2 3. How often do you have six or more drinks on one occasion?: Never Total Score: 4 NATA-7 AMB Questionnaire NATA-7 Date NATA - 7 assessed: 06/23/22 Feeling nervous, anxious, or on edge: 0 = Not at all Not being able to stop or control worryin = Not at all Worrying too much about different things: 0 = Not at all Trouble relaxin = Not at all Being so restless that it is hard to sit still: 0 = Not at all Becoming easily annoyed or irritable: 0 = Not at all Feeling afraid as if something awful might happen: 0 = Not at all Total NATA-7 score (0-4 normal; 5-9 mild; 10-14 moderate; 15-21 severe): 0 Source: Developed by Drs. Gino Birch, Elissa Urena, Saw Zepeda and colleagues, with an educational guille from [employer]. NATA-7 Assessment Billing NATA-7 Assessment Tool: NTAA-7 Assessment 19929 Review of Systems Const Denies body aches, Denies fatigue, Denies fever(s), Denies headache(s) and Denies weakness Eyes Denies change in vision ENT Denies dizziness, Denies headache(s), Denies nasal congestion, Denies nasal discharge and Denies sore throat Card Denies chest pain, Denies lightheadedness, Denies palpitations and Denies dyspnea Resp Denies chest congestion, Denies cough and Denies dyspnea GI Denies abdominal pain, Denies change in bowel habits and Denies heartburn Neuro Denies dizziness, Denies headache(s) and Denies weakness Endo Denies fatigue, Denies polydipsia, Denies polyuria and Denies palpitations Aller/Immun Reports seasonal rhinorrhea Physical exam (Primary Care) Vital Signs: Last Vital Signs Pulse 54 06/23/22 07:50 BP 136/60 06/23/22 07:50 Pulse Ox 97 06/23/22 07:50 Oxygen Delivery Method Room Air 06/23/22 07:50 BMI result Body Mass Index 30.0 Tobacco/Smoking Status: Tobacco use Status Tobacco use date assessed 06/23/22 06/23/22 07:48 Patient Tobacco Use Status Former Tobacco user 06/23/22 07:48 e-Cigarette/Vaping Use Never Used 06/23/22 07:48 PHQ-9: PHQ-9 Score PHQ-9: Total score 0 06/23/22 08:55 Depression Screening Interpretation: Negative Thrive Assessment: Date of Thrive Assessment Date Thrive assessed 06/23/22 06/23/22 07:55 Const General: cooperative, comfortable, no acute distress and Physically active Nutritional Appearance: obese Orientation/consciousness: patient oriented x3 HENMT Head: Yes normocephalic Ears: hearing grossly normal bilaterally, external ears normal, TM's normal bilaterally and EAC's normal General nose exam: Normal external nose present and No nasal discharge present Face and sinus: Yes sinuses nontender and Yes face symmetric Eyes General: appearance normal, both eyes and all related structures Conjunctivae: conjunctivae normal Sclerae: sclerae normal Pupils: Equal, round and reactive pupils present EOM: EOMs intact bilaterally Neck Neck: Yes full ROM, Yes no lymphadenopathy and Yes supple Thyroid: Thyroid normal Resp Auscultation: clear to auscultation bilaterally Cardio Rate: bradycardic Heart sounds: S1 normal heart sound present and S2 normal heart sound present GI Palpation (GI): Soft to palpation, nontender, no guarding and no masses General: No CVA tenderness Back/Spine/Pelvis Back: No CVA tenderness Skin General skin exam: no rashes or lesions noted Neuro General: patient oriented x3, gait normal, tone normal, moves all extremities, Normal light touch and pain sensation, no focal motor deficits and CN's II-XI intact bilaterally Cranial nerves: Yes Equal, round and reactive pupils present Cognition (Neuro): normal cognition Gait exam (Neuro): Normal gait present Coordination: Romberg test negative Extrem General: Yes full ROM and Yes no clubbing, cyanosis or edema Immunizations pneumoc 20-kym conj-dip cr(PF) 0.5 mL IM syringe Performing Provider: Krissy Alaniz MD Performing Location: [facility] Administered by: Catalina Webster CMA on 06/23/22 08:56 Dose Route Admin Location Dispensed Lot Number Expiration Date NDC End Finder Twisting Department 0.5 mL IM Right Deltoid 0.5 mL [id number] 11/19/23 [id number] WYETH/PFIZER VIS Given Date VIS Provided VIS Publication Date 06/23/22 Single Vaccine 21 Eligibility Eligibility Date Funding Source Not [facility] Eligible 06/23/22 Private Results Reviewed Results Reviewed: ENTERED: 06/04/22-[address] [facility] [address]: Krissy Alaniz MD ORDERED: CBC Auto Diff Test Result Flag Reference Site WBC 8.1 4.8-10.8 X10*3/uL RBC 4.52 L 4.60-5.80 X10*6/uL HGB 14.5 14.0-18.0 g/dl HCT 42.9 42.0-52.0 % MCV 94.9 80.0-98.0 fL MCH 32.1 27.0-33.0 pg MCHC 33.8 31.0-36.0 g/dl RDW 13.1 11.0-16.0 % PLT 232 160-400 X10*3/uL MPV 10.3 9.4-12.4 fL Neut Pct Auto 56.1 45-73 % ImGran Pct Auto 0.4 0.0-0.4 % Lymp Pct Auto 29.9 20-40 % Bullock Pct Auto 11.3 H 2-11 % Eos Pct Auto 2.1 0-4 % Baso Pct Auto 0.2 0-2 % NRBC Pct Auto 0.0 0.0-0.2 /100WBC ANC Neut Abs # 4.5 2.0-8.3 x10*3/uL ImGran Abs Auto 0.03 0.00-0.03 X10*3/uL Lymph Abs Auto 2.4 1.2-4.9 X10*3/uL Bullock Abs Auto 0.9 0.1-1.2 X10*3/uL Eos Abs Auto 0.2 0.0-0.4 X10*3/uL Baso Abs Auto 0.0 0.0-0.2 X10*3/uL NRBC Abs Auto 0.000 0.0-0.012 X10*3/uL ENTERED: 06/04/22-[address] [facility] [address]: Krissy Alaniz MD ORDERED: CMP, MG Test Result Flag Reference Site Sodium 140 135-145 mmol/L Potassium 4.6 3.3-5.1 mmol/L CL 110 H 96-108 mmol/L CO2 25 22-29 mmol/L Gap 10 L 12-20 BUN 30 H 9-16 mg/dL Creat 1.69 H 0.5-1.4 mg/dL Estimated CrCl 32.1 eGFR (calculated from the MDRD study equation) and eCrCl (calculated from the Cockcroft-Gault equation) are based on different parameters and may not yield comparable results. If eCrCl result is absurd, please check patient's height/weight. EGFR 39 NOTE: For -Swiss individuals, multiply the result by 1.210. Chronic Kidney Disease: Estimated GFR < 60 mL/min/1.73m2 Severe Kidney Disease: Estimated GFR < 15 mL/min/1.73m2 Glucose, Random 98 60-115 mg/dL CA 8.5 # 8.4-10.2 mg/dL Magnesium 2.1 1.6-2.6 mg/dL Total Bili 1.8 H 0.0-1.0 mg/dL AST (GOT) 23 5-37 U/L ALT (GPT) 25 0-40 U/L Protein, Total 5.8 L 6.5-8.0 g/dL Alb 3.7 3.5-5.0 g/dL Alk Phos 59 39-117 U/L Assessment and Plan Assessment & Plan (1) CKD (chronic kidney disease) stage 2, GFR 60-89 ml/min: Code(s): N18.2 - Chronic kidney disease, stage 2 (mild) (2) Essential hypertension: Code(s): I10 - Essential (primary) hypertension Plan: Blood pressure at goal of less than 130/80. Continue with current medication. Reinforced importance of following a low sodium diet, getting regular exercise, and lowering stress levels. (3) Dyslipidemia: Comment: target LDL < 70 Code(s): E78.5 - Hyperlipidemia, unspecified Plan: Continue atorvastatin (4) PVD (peripheral vascular disease): Comment: s/p stent in [place] in 1985 Code(s): I73.9 - Peripheral vascular disease, unspecified Plan: Continue aspirin (5) Annual visit for general adult medical examination with abnormal findings: Code(s): Z00.01 - Encounter for general adult medical examination with abnormal findings Plan: Fasting labs ordered. Recommended dental visit every 6 months and regular eye exams, at least every 2 years. Take adequate calcium in diet and vitamin-D 3 at 2000 IU per cap once a day, in addition to weight-bearing exercises to help maintain good muscle tone and weight control. Prevnar 20 given today Orders: Orders Lipid Panel 06/30/22 E78.5 - Hyperlipidemia, unspecified Aspartate Amino Transferase 6 Months K80.20 - Calculus of gallbladder without cholecystitis without obstruction, I10 - Essential (primary) hypertension Vitamin D 25-OH Total 06/30/22 Z86.39 - Personal history of other endocrine, nutritional and metabolic disease Lipid Panel 6 Months K80.20 - Calculus of gallbladder without cholecystitis without obstruction, I10 - Essential (primary) hypertension, E78.5 - Hyperlipidemia, unspecified Alanine Aminotransferase 6 Months K80.20 - Calculus of gallbladder without cholecystitis without obstruction, I10 - Essential (primary) hypertension Basic Metabolic Panel Fasting 6 Months K80.20 - Calculus of gallbladder without cholecystitis without obstruction, I10 - Essential (primary) hypertension Pneumococcal 20 Immunization 06/23/22 Z23 - Encounter for immunization Coding Level of Care Code Est Pt Prev Care >65y(86175) Diagnoses CKD (chronic kidney disease) stage 2, GFR 60-89 ml/min N18.2 Essential hypertension I10 Dyslipidemia E78.5 PVD (peripheral vascular disease) I73.9 Annual visit for general adult medical examination with abnormal findings Z00.01 Additional Codes NATA-7 Assessment Billing - NATA-7 Assessment Tool: NATA-7 Assessment 50410 ([id number])
[2022-06-23 07:50] VITALS: BP 136/60; PULSE 54; O2SAT 97
== END 2022-06-23 08:48 | disposition home or self-care (01) ==
LOC: HO.HMGC 07:44
PROVIDERS: PCP Internal Medicine; Visit Provider Internal Medicine
DX: Z00.00 Encounter for general adult medical examination without abnormal findings (principal); I12.9 Hypertensive chronic kidney disease with stage 1 through stage 4 chronic kidney disease, or unspecified chronic kidney disease; N18.2 Chronic kidney disease, stage 2 (mild); I73.9 Peripheral vascular disease, unspecified; E78.5 Hyperlipidemia, unspecified
CPT/HCPCS: 99397

== ENCOUNTER 2022-06-30 08:13 | Outpatient (REF) | payer MEDICARE, BC, SELFPAY ==
[2022-06-30 12:17] LABS: Cholesterol 143 mg/dL; HDL Cholesterol 33 mg/dL; LDL Cholesterol Calculated 81 mg/dl; Triglycerides 148 mg/dL
[2022-06-30 12:42] LABS: Vitamin D 25-OH Total 56.5 ng/mL (>30)
== END 2022-06-30 08:14 | disposition home or self-care (01) ==
LOC: HO.HMGCLDS 08:13
PROVIDERS: PCP Internal Medicine; Visit Provider Internal Medicine
DX: E78.5 Hyperlipidemia, unspecified (principal); Z86.39 Personal history of other endocrine, nutritional and metabolic disease
CPT/HCPCS: 36415; 80061; 82306

== ENCOUNTER 2022-12-21 08:01 | Outpatient (REF) | payer MEDICARE, BC, SELFPAY ==
[2022-12-21 12:46] LABS: Alanine Aminotransferase 26 U/L (0-40); Anion Gap 10 (12-20); Aspartate Amino Transferase 24 U/L (5-37); Blood Urea Nitrogen 21 mg/dL (9-16); Calcium 9.4 mg/dL (8.4-10.2); Carbon Dioxide 27 mmol/L (22-29); Chloride 110 mmol/L (96-108); Cholesterol 121 mg/dL (<200); Estimated Glomerular Filt Rate 57; Glucose Fasting 81 mg/dL (60-99); HDL Cholesterol 32 mg/dL (>40); LDL Cholesterol Calculated 68 mg/dL (<100); Potassium 4.4 mmol/L (3.3-5.1); Sodium 143 mmol/L (135-145); Triglycerides 107 mg/dL (<150)
== END 2022-12-21 08:02 | disposition home or self-care (01) ==
LOC: HO.HMGCLDS 08:01
PROVIDERS: PCP Internal Medicine; Visit Provider Internal Medicine
DX: K80.20 Calculus of gallbladder without cholecystitis without obstruction (principal); I10 Essential (primary) hypertension; E78.5 Hyperlipidemia, unspecified
CPT/HCPCS: 36415; 80048; 80061; 84450; 84460

== ENCOUNTER 2022-12-22 10:14 | Outpatient (AMB) | payer MEDICARE, BC, SELFPAY ==
[2022-12-22 11:48] VITALS: BP 144/96; PULSE 49; O2SAT 97; BMI 29.3
--- NOTE | 2022-12-22 11:48 | A.OFFPC_ITS ---
Vital Signs 12/22/22 11:48 Height 5 ft 4 in Weight 171 lb BMI 29.3 BP 144/96 H Blood Pressure Location Rt brachial Position Sitting Pulse 49 L Pulse Source Pulse Oximeter Pulse Oximetry (%) 97 Oxygen Delivery Method Room Air Intake Visit Reasons: 6 month follow up Lipids Intake Note: Pt is here today for his 6mo. f/u lipids Allergies No Known Allergies [No Known Allergies*] Allergy (Verified 12/22/22 12:10) Medication List - Last Reconciled 12/22/22 by Krissy Alaniz MD amlodipine 5 mg PO DAILY aspirin (Adult Low Dose Aspirin) 81 mg PO DAILY atorvastatin 40 mg PO DAILY blood pressure monitor Check blood pressure as directed cholecalciferol (vitamin D3) 125 mcg PO DAILY lisinopril 20 mg PO ONCE 3 months metoprolol succinate ER 100 mg PO DAILY [id number] 052-51-108-300 mcg (Centrum Silver Men) 1 tab PO DAILY tamsulosin 0.4 mg PO BEDTIME Tobacco use date assessed: 12/22/22 Fall risk assessment: No Falls in past year Last assessed Fall Risk: 12/22/22 Dental Screening Dental Screen Date: 12/22/22 Did you have a dental visit in the last 12 months?: No Was dental information given to patient?: Patient declined HPI 6 month follow up Lipids HPI Details 82-year-old male Here today for follow-u p on his lipids. He is currently taking atorvastatin 40 mg daily and has been following recommended diet. [facility] Medical History Sinus bradycardia Positional lightheadedness Gallstone CKD (chronic kidney disease) stage 2, GFR 60-89 ml/min Diverticulosis History of DVT of lower extremity Former smoker, stopped smoking in distant past Hx of myocardial infarction CAD (coronary artery disease) Hyperkalemia Benign prostatic hyperplasia PVD (peripheral vascular disease) Essential hypertension Dyslipidemia Surgical History Status post insertion of iliac artery stent Family History Father Heart problem Substance use disorder Mother Heart problem Social History Housing: Apartment Alcohol intake: current Alcohol intake frequency: a few times a week Alcohol type: wine Patient Tobacco Use Status: Former Tobacco user e-Cigarette/Vaping Use: Never Used service: No Current occupational status: retired Cognitive needs: No Hearing needs: No Vision needs: Yes Questionnaire Thrive Questionnaire Date Thrive assessed: 06/23/22 NATA-7 AMB Questionnaire NATA-7 Date NATA - 7 assessed: 06/23/22 Source: Developed by Drs. Gino Birch, Elissa Urena, Saw Zepeda and colleagues, with an educational guille from [employer]. Review of Systems Const Denies body aches, Denies fatigue, Denies fever(s), Denies headache(s) and Denies weakness Eyes Denies change in vision ENT Denies dizziness, Denies headache(s), Denies nasal congestion, Denies nasal discharge and Denies sore throat Card Denies chest pain, Denies lightheadedness, Denies palpitations and Denies dyspnea Resp Denies chest congestion, Denies cough and Denies dyspnea GI Denies abdominal pain, Denies change in bowel habits and Denies heartburn Neuro Denies dizziness, Denies headache(s) and Denies weakness Endo Denies fatigue, Denies polydipsia, Denies polyuria and Denies palpitations Aller/Immun Reports seasonal rhinorrhea Physical exam (Primary Care) Vital Signs: Last Vital Signs Pulse 49 L 12/22/22 11:48 BP 144/96 H 12/22/22 11:48 Pulse Ox 97 12/22/22 11:48 Oxygen Delivery Method Room Air 12/22/22 11:48 BMI result Body Mass Index 29.3 Tobacco/Smoking Status: Tobacco use Status Tobacco use date assessed 12/22/22 12/22/22 11:50 Patient Tobacco Use Status Former Tobacco user 12/22/22 11:50 e-Cigarette/Vaping Use Never Used 12/22/22 11:50 Thrive Assessment: Date of Thrive Assessment Date Thrive assessed 06/23/22 12/22/22 11:50 Const General: cooperative, comfortable, no acute distress and Physically active Nutritional Appearance: obese Orientation/consciousness: patient oriented x3 HENMT Head: Yes normocephalic Ears: hearing grossly normal bilaterally, external ears normal, TM's normal bilaterally and EAC's normal General nose exam: Normal external nose present and No nasal discharge present Face and sinus: Yes sinuses nontender and Yes face symmetric Eyes General: appearance normal, both eyes and all related structures Conjunctivae: conjunctivae normal Sclerae: sclerae normal Pupils: Equal, round and reactive pupils present EOM: EOMs intact bilaterally Neck Neck: Yes full ROM, Yes no lymphadenopathy and Yes supple Thyroid: Thyroid normal Resp Auscultation: clear to auscultation bilaterally Cardio Rate: bradycardic Heart sounds: S1 normal heart sound present and S2 normal heart sound present Neuro General: patient oriented x3, gait normal, tone normal, moves all extremities, Normal light touch and pain sensation, no focal motor deficits and CN's II-XI intact bilaterally Cranial nerves: Yes Equal, round and reactive pupils present Cognition (Neuro): normal cognition Gait exam (Neuro): Normal gait present Coordination: Romberg test negative Assessment and Plan Assessment & Plan (1) CKD (chronic kidney disease) stage 2, GFR 60-89 ml/min: Code(s): N18.2 - Chronic kidney disease, stage 2 (mild) Plan: Continue with lisinopril 20 mg once a day and metoprolol 100 mg daily (2) Essential hypertension: Code(s): I10 - Essential (primary) hypertension Plan: Blood pressure at goal of less than 130/80. Continue with current medication. Reinforced importance of following a low sodium diet, getting regular exercise, and lowering stress levels. (3) Dyslipidemia: Comment: target LDL < 70 Code(s): E78.5 - Hyperlipidemia, unspecified Plan: Reviewed recent fasting lipid profile with patient with levels within normal limits . Continue with atorvastatin 40 mg daily , in addition to adherence to low-cholesterol diet and regular exercise, at least 30 minutes 3 to 4 times a week. Advised patient to make healthy food choices, eat more fruits, vegetables, whole grains, wild caught fish and low-fat dairy. Limit amount of meat and fried or fatty food products, as well as processed foods and fast foods. Orders: Orders Alanine Aminotransferase 05/20/23 N18.2 - Chronic kidney disease, stage 2 (mild), I25.10 - Atherosclerotic heart disease of [place] coronary artery without angina pectoris, I10 - Essential (primary) hypertension, E78.5 - Hyperlipidemia, unspecified Vitamin D 25-OH Total 03/01/24 N18.2 - Chronic kidney disease, stage 2 (mild), I25.10 - Atherosclerotic heart disease of [place] coronary artery without angina pectoris, I10 - Essential (primary) hypertension, E78.5 - Hyperlipidemia, unspecified Lipid Panel 05/20/23 N18.2 - Chronic kidney disease, stage 2 (mild), I25.10 - Atherosclerotic heart disease of [place] coronary artery without angina pectoris, I10 - Essential (primary) hypertension, E78.5 - Hyperlipidemia, unspecified Aspartate Amino Transferase 05/20/23 N18.2 - Chronic kidney disease, stage 2 (mild), I25.10 - Atherosclerotic heart disease of [place] coronary artery without angina pectoris, I10 - Essential (primary) hypertension, E78.5 - Hyperlipidemia, unspecified Basic Metabolic Panel Fasting 05/20/23 N18.2 - Chronic kidney disease, stage 2 (mild), I25.10 - Atherosclerotic heart disease of [place] coronary artery without angina pectoris, I10 - Essential (primary) hypertension, E78.5 - Hyperlipidemia, unspecified Coding Level of Care Code Est Pt Level 4 (14654) Diagnoses CKD (chronic kidney disease) stage 2, GFR 60-89 ml/min N18.2 Essential hypertension I10 Dyslipidemia E78.5
== END 2022-12-22 12:26 | disposition home or self-care (01) ==
PROVIDERS: Visit Provider Internal Medicine
DX: I12.9 Hypertensive chronic kidney disease with stage 1 through stage 4 chronic kidney disease, or unspecified chronic kidney disease (principal); N18.2 Chronic kidney disease, stage 2 (mild); E78.5 Hyperlipidemia, unspecified
CPT/HCPCS: 99214

== ENCOUNTER 2023-02-05 07:50 | Emergency (ER) | payer MEDICARE, BC, SELFPAY ==
--- NOTE | ~2023-02-05 | XR_ITS ---
EXAMINATION: XR chest 2V CLINICAL INFORMATION: Reason for Exam cough COMPARISON: Prior chest x-ray May 2022 TECHNIQUE: XR chest 2V, 2 Views Lungs and Ny: Hyperinflated lungs suggesting air trapping disease COPD. Pleura: Normal. Costophrenic angles are sharp. No pneumothorax. Heart: The heart is normal in size. Mediastinum: The mediastinum is within normal limits.. Bones: Skeletal structures included are normal for patient's age. XR/XR chest 2V IMPRESSION: * Hyperinflated lungs suggesting air trapping disease COPD. * No radiographic evidence of acute infiltrates or failure. * If patient remain symptomatic consider correlation with follow-up low-dose chest CT.
[2023-02-05 08:00] VITALS: BP 138/54; PULSE 62; RESP 18; TEMP 36.5; O2SAT 95; BMI 29.2
[2023-02-05 08:24] LABS: COVID-19 Test Negative (Negative); IDNOW Serial# 08D9AD1C
[2023-02-05 08:25] LABS: IDNOW Serial# BCCEAD1C; Influenza A Negative (Negative); Influenza B2 Negative (Negative)
--- NOTE | 2023-02-05 08:36 | ED_ITS ---
HPI - URI/Sore Throat General Chief Complaint: Upper Respiratory Symptoms Stated Complaint: cough Time Seen by Provider: 02/05/23 08:06 Source: patient Mode of arrival: ambulatory Limitations: no limitations History of Present Illness HPI Narrative: 82 yo male with PMH of HTN, HLD, CKD, PVD, here with c/o 2 days of runny nose and cough feeling tired and weak - clear sputum. No fevers, no chest pain, no n/v/d. Just feels tired. No sick contacts or travel. MD elicited complaint: cough and rhinorrhea Onset (ago): day(s) (2) Consistency: constant Severity: mild Description of mucous: clear and watery Able to tolerate fluids by mouth: Yes Exacerbating factors: other (coughing , and laying down has increased post nasal drip) Relieving factors: rest Associated symptoms: rhinorrhea, cough and other (fatigue) Treatments prior to arrival: none Related Data Home Medications Medication Instructions Recorded Confirmed [id number] 300 mcg-K 60 1 tab PO DAILY 06/17/21 01/19/23 mcg-lycop 600 mcg-lutein 300 mcg tablet (Centrum Silver Men) cholecalciferol (vitamin D3) 125 125 mcg PO DAILY 12/22/22 01/19/23 mcg (5,000 unit) capsule Previous Rx's Medication Instructions Recorded blood pressure monitor #1 ea 02/26/20 aspirin 81 mg tablet,delayed 81 mg PO DAILY #90 tabs 08/05/22 release (Adult Low Dose Aspirin) amlodipine 5 mg tablet 5 mg PO DAILY #90 tabs 01/21/23 atorvastatin 40 mg tablet 40 mg PO DAILY #90 tabs 01/21/23 lisinopril 20 mg tablet 20 mg PO ONCE 3 months #90 tabs 01/21/23 metoprolol succinate 100 mg 100 mg PO DAILY #90 tabs 01/21/23 tablet,extended release 24 hr tamsulosin 0.4 mg capsule 0.4 mg PO BEDTIME #90 caps 01/21/23 azithromycin 250 mg tablet See Rx Instructions PO .COMPLEX #6 02/05/23 tabs Allergies Allergy/AdvReac Type Severity Reaction Status Date / Time No Known Allergies Allergy Verified 12/22/22 12:10 [No Known Allergies*] Review of Systems Review of Systems: Constitutional : No Fever, No Chills, pos fatigue ENT/Mouth : No Hoarseness, No sore throat, pos Rhinorrhea Eyes: No Redness, No Discharge, No Vision Changes Cardiovascular : No Chest Pain, positive SOB, no Dyspnea on Exertion, No Edema Respiratory : positive Cough, No Sputum, no Wheezing, Gastrointestinal : No Nausea, No Vomiting, No Diarrhea, No abdominal Pain Genitourinary : No Dysuria, No Hematuria Musculoskeletal : No joint pain, No Myalgias Skin : No rash Neuro : No Weakness, No Numbness, No Headache Psych : No anxiety, depression All other systems reviewed and are negative [facility] Past Medical History Attestation statement: The following information was validated with the patient. Source: old records reviewed Medical History Sinus bradycardia Positional lightheadedness Gallstone CKD (chronic kidney disease) stage 2, GFR 60-89 ml/min Diverticulosis History of DVT of lower extremity Former smoker, stopped smoking in distant past Hx of myocardial infarction CAD (coronary artery disease) Hyperkalemia Benign prostatic hyperplasia PVD (peripheral vascular disease) Essential hypertension Dyslipidemia Surgical History Status post insertion of iliac artery stent Family History Family History Father Heart problem Substance use disorder Mother Heart problem Social History Social History Housing: Apartment Alcohol intake: current Alcohol intake frequency: a few times a week Alcohol type: wine Patient Tobacco Use Status: Former Tobacco user e-Cigarette/Vaping Use: Never Used Advance Directives: Yes Advance Directives Information Provided: Yes Advance Directives on File: No service: No Current occupational status: retired Cognitive needs: No Hearing needs: No Vision needs: Yes Physical Exam Vital Signs: Vital Signs: Last Vital Signs Temp 97.7 F 02/05/23 08:00 Pulse 62 02/05/23 08:00 Resp 18 02/05/23 08:00 BP 138/54 L 02/05/23 08:00 Pulse Ox 95 02/05/23 08:00 O2 Del Method Room Air 02/05/23 08:00 BMI result Body Mass Index 29.2 Appearance: Alert. Oriented X3. No acute distress. Eyes: Pupils equal, round and reactive to light. ENT: Pharynx normal. Neck: Normal inspection. Neck supple. CVS: Normal heart rate and rhythm. Pulses normal. Respiratory: No respiratory distress. Breath sounds normal. Abdomen: Soft and nontender. Skin: Skin warm and dry. Normal skin color. Normal skin turgor. Extremities: No lower extremity edema. No calf ttp Neuro: Oriented X 3. No motor deficit. No sensory deficit. Medical Decision Making Medical Decision Making [facility] Narrative: 82 yo male with PMH of HTN, HLD, CKD, PVD, here with URI symptoms x 2 days - not toxic, VS stable, no hypoxia seems viral vs bronchitis - at this time PCR panel, CXR for pneumonia. Denies n/v/d and is tolerating PO. Differential Diagnosis Differential Diagnoses: The differential diagnosis associated with the presentation includes viral syndrome, pneumonia, bronchitis Admission/Observation Consideration of admission/observation: Escalation of care including admission/observation considered not toxic, tolerating PO, VS stable, no hypoxia Lab Data [facility] Lab Attestation statement: I reviewed the patient's lab results. Labs: Lab Results 02/05/23 02/05/23 Range/Units 08:02 08:49 COVID-19 (KAREN) Negative (Negative) COVID-19 Clin Com See Note Influenza Type A (ANN) Negative (Negative) Influenza Type A (PCR) NEGATIVE (Negative) Influenza Type B (ANN) Negative (Negative) Influenza Type B (PCR) NEGATIVE (Negative) Influenza A & B Note See Note RSV RNA Qual (PCR) NEGATIVE (Negative) SARS-CoV-2 RNA (RT-PCR) NEGATIVE (Negative) Independent Interpretation I performed an independent interpretation of an: Plain X-Ray (no pneumonia) Radiology Impression Discussion of test interpretation with radiology: I have reviewed the radiologist's reading. External Record Review External record reviewed: Inpatient record Prescription Management I considered prescription management with: Antibiotic Discharge Plan Discharge Clinical Impression: Sinusitis Qualifiers: Sinusitis location: maxillary Chronicity: acute Recurrence: non-recurrent Qualified Code(s): J01.00 - Acute maxillary sinusitis, unspecified Patient Disposition: Home, Self-Care Instructions: Sinusitis (ED) Additional Instructions: return for worsening symptoms, difficulty breathing, vomiting, inability to eat or drink or any other concerns. take a probiotic while on antibiotic no pneumonia, negative for flu, covid, RSV Prescriptions: New azithromycin 250 mg tablet See Rx Instructions .ROUTE .COMPLEX Qty: 6 0RF Rx Instructions: For 250 mg dose pack: take 500 mg today (day 1), then 250 mg for 4 days (days 2-5) No Action (DME) blood pressure monitor Kit See Rx Instructions .ROUTE .MEDSUPPLY Qty: 1 0RF Rx Instructions: Check blood pressure as directed aspirin [Adult Low Dose Aspirin] 81 mg tablet,delayed release (DR/EC) 81 mg PO DAILY Qty: 90 3RF amlodipine 5 mg tablet 5 mg PO DAILY Qty: 90 1RF tamsulosin 0.4 mg capsule 0.4 mg PO BEDTIME Qty: 90 1RF metoprolol succinate 100 mg tablet extended release 24 hr 100 mg PO DAILY Qty: 90 1RF atorvastatin 40 mg tablet 40 mg PO DAILY Qty: 90 1RF lisinopril 20 mg tablet 20 mg PO ONCE 90 Days Qty: 90 1RF Centrum Silver Men 300-600-300 mcg tablet 1 tab PO DAILY cholecalciferol (vitamin D3) 125 mcg (5,000 unit) capsule 125 mcg PO DAILY
[2023-02-05 10:14] LABS: Influenza A PCR NEGATIVE (Negative); Influenza B PCR NEGATIVE (Negative); Resp Syncy Virus RNA Qual PCR NEGATIVE (Negative); SARS COV2 PCR INHOUSE NEGATIVE (Negative)
== END 2023-02-05 10:37 | disposition home or self-care (01) ==
PROVIDERS: Emergency Provider Emergency Medicine; PCP Internal Medicine
DX: J01.00 Acute maxillary sinusitis, unspecified (principal); Z20.822 Contact with and (suspected) exposure to COVID-19; Z20.828 Contact with and (suspected) exposure to other viral communicable diseases; I12.9 Hypertensive chronic kidney disease with stage 1 through stage 4 chronic kidney disease, or unspecified chronic kidney disease; N18.2 Chronic kidney disease, stage 2 (mild); E78.5 Hyperlipidemia, unspecified; I25.2 Old myocardial infarction; Z87.891 Personal history of nicotine dependence; Z86.718 Personal history of other venous thrombosis and embolism
CPT/HCPCS: 0241U; 71046; 87502; 87635; 99282; 99283

== ENCOUNTER 2023-06-11 10:16 | Outpatient (REF) | payer MEDICARE, BC, SELFPAY ==
[2023-06-11 14:11] LABS: Prostate Specific Antigen 5.29 ng/mL (<0.05-4.0)
== END 2023-06-11 10:17 | disposition home or self-care (01) ==
LOC: HO.HMGCLDS 10:16
PROVIDERS: PCP Internal Medicine; Visit Provider Urology
DX: R97.20 Elevated prostate specific antigen [PSA] (principal); Z12.5 Encounter for screening for malignant neoplasm of prostate
CPT/HCPCS: 36415; 84153

== ENCOUNTER 2023-07-05 08:00 | Outpatient (REF) | payer MEDICARE, BC, SELFPAY ==
[2023-07-05 11:02] LABS: Alanine Aminotransferase 21 U/L (0-40); Anion Gap 10 (12-20); Aspartate Amino Transferase 20 U/L (5-37); Blood Urea Nitrogen 25 mg/dL (9-16); Calcium 9.8 mg/dL (8.4-10.2); Carbon Dioxide 28 mmol/L (22-29); Chloride 107 mmol/L (96-108); Cholesterol 132 mg/dL (<200); Estimated Glomerular Filt Rate 57; Glucose Fasting 84 mg/dL (60-99); HDL Cholesterol 32 mg/dL (>40); LDL Cholesterol Calculated 72 mg/dL (<100); Potassium 4.4 mmol/L (3.3-5.1); Sodium 141 mmol/L (135-145); Triglycerides 142 mg/dL (<150)
[2023-07-05 11:09] LABS: Vitamin D 25-OH Total 74.4 ng/mL (>30)
== END 2023-07-05 08:01 | disposition home or self-care (01) ==
LOC: HO.HMGCLDS 08:00
PROVIDERS: PCP Internal Medicine; Visit Provider Internal Medicine
DX: I12.9 Hypertensive chronic kidney disease with stage 1 through stage 4 chronic kidney disease, or unspecified chronic kidney disease (principal); N18.2 Chronic kidney disease, stage 2 (mild); I25.10 Atherosclerotic heart disease of native coronary artery without angina pectoris; E78.5 Hyperlipidemia, unspecified
CPT/HCPCS: 36415; 80048; 80061; 82306; 84450; 84460

== ENCOUNTER 2023-07-14 09:22 | Outpatient (AMB) | payer MEDICARE, BC, SELFPAY ==
[2023-07-14 09:39] VITALS: BP 130/54; PULSE 56; O2SAT 96; BMI 28.7
--- NOTE | 2023-07-14 09:39 | A.OFFPC_ITS ---
Vital Signs 07/14/23 09:39 Height 5 ft 4 in Weight 167 lb BMI 28.7 BP 130/54 L Blood Pressure Location Rt brachial Position Sitting Pulse 56 Pulse Source Pulse Oximeter Pulse Oximetry (%) 96 Oxygen Delivery Method Room Air Intake Visit Reasons: Annual PE Intake Note: Pt is here today for his PE: Last colonoscopy 02/22/13 Allergies No Known Allergies [No Known Allergies*] Allergy (Verified 07/14/23 10:18) Medication List - Last Reconciled 07/14/23 by Krissy Alaniz MD amlodipine 5 mg PO DAILY aspirin (Adult Low Dose Aspirin) 81 mg PO DAILY atorvastatin 40 mg PO DAILY blood pressure monitor Check blood pressure as directed cholecalciferol (vitamin D3) 125 mcg PO DAILY finasteride 5 mg PO DAILY lisinopril 20 mg PO DAILY metoprolol succinate ER 100 mg PO DAILY [id number] mcg (Centrum Silver Men) 1 tab PO DAILY tamsulosin 0.4 mg PO BEDTIME Tobacco use date assessed: 07/14/23 Fall risk assessment: No Falls in past year Last assessed Fall Risk: 07/14/23 Dental Screening Dental Screen Date: 07/14/23 Did you have a dental visit in the last 12 months?: No Was dental information given to patient?: Patient declined HPI Annual PE HPI Details 82-year-old male with history of hyperte nsion, hyperlipidemia, chronic kidney disease stage 2, coronary artery disease, with asymptomatic bilateral carotid artery stenosis, with benign prostatic hyperplasia and peripheral vascular disease followed at [facility], here today for his physical exam. He had a screening colonoscopy done [place] [address] Noland showed only presence of diverticulosis and hemorrhoids, no further testing indicated. He has been feeling well, blood pressure, lipids are stable controlled on present treatment. Currently being followed by [facility] for benign prostatic hyperplasia currently on tamsulosin and finasteride recently added 2 weeks ago, per patient. [facility] Medical History Bilateral carotid artery stenosis Sinus bradycardia Gallstone CKD (chronic kidney disease) stage 2, GFR 60-89 ml/min Diverticulosis History of DVT of lower extremity Former smoker, stopped smoking in distant past Hx of myocardial infarction CAD (coronary artery disease) Hyperkalemia Benign prostatic hyperplasia PVD (peripheral vascular disease) Essential hypertension Dyslipidemia Surgical History Status post insertion of iliac artery stent Family History Father Heart problem Substance use disorder Mother Heart problem Social History Housing: Apartment Alcohol intake: current Alcohol intake frequency: a few times a week Alcohol type: wine Patient Tobacco Use Status: Former Tobacco user e-Cigarette/Vaping Use: Never Used service: No Current occupational status: retired Cognitive needs: No Hearing needs: No Vision needs: Yes Questionnaire PHQ-9 Over the last 2 weeks, how often have you been bothered by any of the following problems? 1. Little interest or pleasure in doing things: not at all 2. Feeling down, depressed, or hopeless: not at all 3. Trouble falling or staying asleep, or sleeping too much: not at all 4. Feeling tired or having little energy: not at all 5. Poor appetite or overeating: not at all 6. Feeling bad about yourself - or that you are a failure or have let yourself or your family down: not at all 7. Trouble concentrating on things, such as reading the newspaper or watching television: not at all 8. Moving or speaking so slowly that other people could have noticed. Or the opposite - being so fidgety or restless that you have been moving around a lot more than usual: not at all 9. Thoughts that you would be better off or of hurting yourself in some way: not at all Total score: 0 Depression Screening Interpretation: Negative Depression Screening Done: Yes [id number] - PHQ-9 Billing: Yes Source: Developed by Drs. Gino Birch, Elissa Urena, Saw Zepeda and colleagues, with an educational guille from [employer]. Thrive Questionnaire Date Thrive assessed: 07/14/23 I am a: Patient What is your living situation today?: I have a steady place to live Within the past 12 months, did the food you bought not last and you didn't have the money to get more?: Never true Within the past 12 months, did you worry whether your food would run out before you got money to buy more?: Never true Do you have trouble paying for medicines?: No Do you have trouble getting transportation to medical appointments?: No Do you have trouble paying your heating and electricity bill?: No Do you have trouble taking care of your child, family member or friend?: No Do you have trouble with day-to-day activities such as bathing, preparing meals, shopping, managing finances, etc.?: No Are you currently unemployed and looking for a job?: No Are you interested in more education?: No THRIVE Score: 0 AUDIT C Alcohol Use Questionnaire (AUDIT-C) 1. How often do you have a drink containing alcohol?: 4 or more times a week 2. How many drinks containing alcohol do you have on a typical day when you are drinking?: 1 or 2 3. How often do you have six or more drinks on one occasion?: Never Total Score: 4 NATA-7 AMB Questionnaire NATA-7 Date NATA - 7 assessed: 07/14/23 Feeling nervous, anxious, or on edge: 0 = Not at all Not being able to stop or control worryin = Not at all Worrying too much about different things: 0 = Not at all Trouble relaxin = Not at all Being so restless that it is hard to sit still: 0 = Not at all Becoming easily annoyed or irritable: 0 = Not at all Feeling afraid as if something awful might happen: 0 = Not at all Total NATA-7 score (0-4 normal; 5-9 mild; 10-14 moderate; 15-21 severe): 0 Source: Developed by Drs. Gino Birch, Elissa Urena, Saw Zepeda and colleagues, with an educational guille from [employer]. Review of Systems Const Denies body aches, Denies fatigue, Denies fever(s), Denies headache(s) and Denies weakness Eyes Denies change in vision ENT Denies vertigo, Denies dizziness, Denies headache(s), Denies nasal congestion, Denies nasal discharge and Denies sore throat Card Denies chest pain, Denies pedal edema, Denies irregular heart rhythm, Denies claudication, Denies leg ulcers, Denies leg edema, Denies lightheadedness, Denies palpitations and Denies dyspnea Resp Denies chest congestion, Denies cough and Denies dyspnea GI Denies abdominal pain, Denies change in bowel habits and Denies heartburn Reports urinary hesitancy and Reports urinary incontinence Musc Reports no additional complaints, Denies muscle weakness, Denies numbness and Denies tingling Skin/Breast Denies lesions, Denies rash and Denies sores Neuro Denies vertigo, Denies dizziness, Denies headache(s), Denies numbness, Denies Sensory deficit (Neuro), Denies tingling, Denies paresthesias and Denies weakness Psych Reports no additional complaints Endo Denies fatigue, Denies polydipsia, Denies polyuria and Denies palpitations Sunny/Lymph Reports no additional complaints Aller/Immun Reports seasonal rhinorrhea Physical exam (Primary Care) Vital Signs: Last Vital Signs Pulse 56 07/14/23 09:39 BP 130/54 L 07/14/23 09:39 Pulse Ox 96 07/14/23 09:39 Oxygen Delivery Method Room Air 07/14/23 09:39 BMI result Body Mass Index 28.7 Tobacco/Smoking Status: Tobacco use Status Tobacco use date assessed 07/14/23 07/14/23 09:42 Patient Tobacco Use Status Former Tobacco user 07/14/23 09:42 e-Cigarette/Vaping Use Never Used 07/14/23 09:42 PHQ-9: PHQ-9 Score PHQ-9: Total score 0 07/14/23 10:44 Depression Screening Interpretation: Negative Thrive Assessment: Date of Thrive Assessment Date Thrive assessed 06/23/22 07/14/23 09:42 Advance Care Planning discussion: Completed/Scanned Date of discussion: 07/14/23 Who was present: Patient Forms completed: Health Care Proxy and MOLST Time spent: 16-45 minutes Actual minutes spent: 16 Const General: cooperative, comfortable, no acute distress and Physically active Orientation/consciousness: patient oriented x3 HENMT Head: Yes normocephalic Ears: hearing grossly normal bilaterally, external ears normal, TM's normal bilaterally and EAC's normal General nose exam: Normal external nose present and No nasal discharge present Face and sinus: Yes face symmetric Eyes General: appearance normal, both eyes and all related structures Conjunctivae: conjunctivae normal Sclerae: sclerae normal Pupils: Equal, round and reactive pupils present EOM: EOMs intact bilaterally Neck Neck: Yes full ROM, Yes no lymphadenopathy and Yes supple Thyroid: Thyroid normal Resp Auscultation: clear to auscultation bilaterally Cardio Rate: bradycardic Rhythm: regular rhythm Heart sounds: S1 normal heart sound present and S2 normal heart sound present Bruits: no abdominal aortic bruits GI Palpation (GI): No Abdominal aortic bruit present, Soft to palpation, nontender, no guarding and no masses Auscultation: normal bowel sounds General: Yes no CVA tenderness Back/Spine/Pelvis Back: no CVA tenderness and No back tenderness Skin General skin exam: no rashes or lesions noted Neuro General: patient oriented x3, gait normal, tone normal, moves all extremities, Normal light touch and pain sensation, no focal motor deficits and CN's II-XI intact bilaterally Cranial nerves: Yes Equal, round and reactive pupils present Cognition (Neuro): normal cognition Gait exam (Neuro): Normal gait present Sensory Exam: No Sensory deficit (Neuro) Extrem General: Yes normal to inspection, Yes full ROM, Yes no joint enlargement, Yes no clubbing, cyanosis or edema, Yes no calf tenderness and Yes normal gait Psych Appearance: grossly normal and well kempt Mental Status: mental status grossly normal Speech and movement: Normal speech and movement present Affect: normal affect Results Reviewed Results Reviewed: Name: Lobito Cast Age/Sex: 82/M : 1940 Unit#: [id number] Attend Dr: Krissy Alaniz MD Re07/05/23 Status: DEP REF Location: [facility] Disch: SPEC : [id number] VIN: 07/05/23 STATUS: COMP REQ : [id number] RECD: 07/05/23-[address]: Krissy Alaniz MD COMP: 07/05/23 ENTERED: 07/05/23-802 [facility] DR: ORDERED: Met Prof Fast, AST, ALT, Lipid Panel, Vitamin D 25-OH Test Result Flag Reference Sodium 141 135-145 mmol/L Potassium 4.4 3.3-5.1 mmol/L CL 107 96-108 mmol/L CO2 28 22-29 mmol/L Gap 10 L 12-20 BUN 25 H 9-16 mg/dL Creat 1.21 0.5-1.4 mg/dL EGFR 57 NOTE: For -[place] individuals, multiply the result by 1.210. Chronic Kidney Disease: Estimated GFR < 60 mL/min/1.73m2 Severe Kidney Disease: Estimated GFR < 15 mL/min/1.73m2 FBS 84 60-99 mg/dL CA 9.8 8.4-10.2 mg/dL AST (GOT) 20 5-37 U/L ALT (GPT) 21 0-40 U/L Triglyceride 142 <150 mg/dL Desirable Triglyceride: less than 150 mg/dL Borderline High Triglyceride 150-199 mg/dL High Triglyceride: 200-499 mg/dL Very High Triglyceride: greater than or equal to 5OO mg/dL Cholesterol 132 <200 mg/dL Desirable Cholesterol: less than 200 mg/dL Borderline High Cholesterol: 200-239 mg/dL High Cholesterol: greater than 239 mg/dL LDL Calculated 72 <100 mg/dL Desirable LDL: less than 100 mg/dL Near Optimal/Above Optimal LDL: 110-129 mg/dL Borderline High LDL: 130-159 mg/dL High LDL: 160-189 mg/dL Very High LDL: greater than or equal to 190 mg/dL HDL 32 L >40 mg/dL Desirable HDL: greater than 40 mg/dL Note: This HDL assay may give artificially low results in patients with liver disease. Vit D 25-OH Tot 74.4 >30 ng/mL Health Based Reference Values* < 20 ng/mL Deficient 20-30 ng/mL Insufficient > 30 ng/mL Sufficient Assessment and Plan Assessment & Plan (1) Annual visit for general adult medical examination with abnormal findings: Code(s): Z00.01 - Encounter for general adult medical examination with abnormal findings Plan: Recent fasting labs reviewed with patient. Advised to get regular eye exams, at least every 2 years. Take adequate calcium in diet and vitamin-D 3 at 2000 IU per cap once a day, in addition to weight-bearing exercises to help maintain good muscle tone and weight control. Currently followed by [facility] for his benign prostatic hyperplasia, up-to-date with his vaccinations but does not want to get the shingles vaccine. (2) CAD (coronary artery disease): Comment: s/p RCA and left circumflex stent in 1997 , restenosis of RCA in s/p rotational arthrectomy, ff'd by Dr Mauro Code(s): I25.10 - Atherosclerotic heart disease of [place] coronary artery without angina pectoris Qualifiers: Coronary Disease-Associated Artery/Lesion type: [place] artery [place] vs. transplanted heart: [place] heart Associated angina: without angina Qualified Code(s): I25.10 - Atherosclerotic heart disease of [place] coronary artery without angina pectoris Plan: Continue aspirin 81 mg daily, atorvastatin 40 mg daily with goal LDL less than 70 mg/dL. Reinforced importance of controlling blood pressure (3) Benign prostatic hyperplasia: Code(s): N40.0 - Benign prostatic hyperplasia without lower urinary tract symptoms Qualifiers: Lower urinary tract symptom presence: symptoms present Lower urinary tract symptom detail: urinary frequency Qualified Code(s): N40.1 - Benign prostatic hyperplasia with lower urinary tract symptoms; R35.0 - Frequency of micturition Plan: Followed at [facility], currently on finasteride and tamsulosin (4) PVD (peripheral vascular disease): Comment: s/p stent in [place] in 1985 Code(s): I73.9 - Peripheral vascular disease, unspecified Plan: Currently followed at [facility], recently seen 07/05/2023, patient denies any symptoms of claudication to either lower extremities no weakness or paresthesias no headache dizziness or visual disturbance, had vascular studies done 06/29/2023 which showed 1-49% stenosis in both internal carotid arteries, more than 50% stenosis in proximal external carotid artery and vertebral artery could not be visualized likely occluded. He has normal arterial blood flow to the bilateral ankles at rest unchanged. He has a follow-up appointment with [facility] in a year for repeat JUSTO and aortoiliac duplex scan for bypass patency (5) Essential hypertension: Code(s): I10 - Essential (primary) hypertension Plan: Blood pressure at goal of less than 130/80. Continue with amlodipine 5 mg daily, metoprolol succinate ER 100 mg once a day and lisinopril 20 mg daily Reinforced importance of following a low sodium diet, getting regular exercise, and lowering stress levels. (6) Dyslipidemia: Comment: target LDL < 70 Code(s): E78.5 - Hyperlipidemia, unspecified Plan: Continue atorvastatin 40 mg daily in addition to adherence to a low-cholesterol diet (7) CKD (chronic kidney disease) stage 2, GFR 60-89 ml/min: Code(s): N18.2 - Chronic kidney disease, stage 2 (mild) Plan: Stable, avoid NSAIDs, keep blood pressure , cholesterol levels and blood sugar levels within normal limits (8) Gallstone: Comment: Asymptomatic Code(s): K80.20 - Calculus of gallbladder without cholecystitis without obstruction Qualifiers: Cholecystitis presence: without cholecystitis Biliary obstruction: without biliary obstruction Qualified Code(s): K80.20 - Calculus of gallbladder without cholecystitis without obstruction Plan: Currently asymptomatic (9) Bilateral carotid artery stenosis: Comment: Asymptomatic Code(s): I65.23 - Occlusion and stenosis of bilateral carotid arteries Plan: Asymptomatic, continue aspirin 81 mg daily and atorvastatin 40 mg daily, followed at [facility] and to have a repeat carotid ultrasound again in a year Coding Level of Care Code Est Pt Prev Care >65y(87209) Diagnoses Annual visit for general adult medical examination with abnormal findings Z00.01 Coronary artery disease involving [place] coronary artery of [place] heart without angina pectoris I25.10 Coronary Disease-Associated Artery/Lesion type: [place] artery [place] vs. transplanted heart: [place] heart Associated angina: without angina Benign prostatic hyperplasia with urinary frequency N40.1; R35.0 Lower urinary tract symptom presence: symptoms present Lower urinary tract symptom detail: urinary frequency PVD (peripheral vascular disease) I73.9 Essential hypertension I10 Dyslipidemia E78.5 CKD (chronic kidney disease) stage 2, GFR 60-89 ml/min N18.2 Calculus of gallbladder without cholecystitis without obstruction K80.20 Cholecystitis presence: without cholecystitis Biliary obstruction: without biliary obstruction Bilateral carotid artery stenosis I65.23 Additional Codes Vital Signs *Quality* - Advance Care Planning discussion: Completed/Scanned ([id number]) Vital Signs *Quality* - Time spent: 16-45 minutes ([id number])
== END 2023-07-14 10:44 | disposition home or self-care (01) ==
PROVIDERS: Visit Provider Internal Medicine
DX: Z00.00 Encounter for general adult medical examination without abnormal findings (principal); I12.9 Hypertensive chronic kidney disease with stage 1 through stage 4 chronic kidney disease, or unspecified chronic kidney disease; N18.2 Chronic kidney disease, stage 2 (mild); I73.9 Peripheral vascular disease, unspecified; I25.10 Atherosclerotic heart disease of native coronary artery without angina pectoris; N40.1 Benign prostatic hyperplasia with lower urinary tract symptoms; R35.0 Frequency of micturition; E78.5 Hyperlipidemia, unspecified; K80.20 Calculus of gallbladder without cholecystitis without obstruction; I65.23 Occlusion and stenosis of bilateral carotid arteries
CPT/HCPCS: 1123F; 99397; 99497

== ENCOUNTER 2023-09-08 13:01 | Outpatient (AMB) | payer MEDICARE, BC, SELFPAY ==
[2023-09-08 13:02] VITALS: BP 118/60; PULSE 60; TEMP 36.3; O2SAT 98; BMI 29.0
--- NOTE | 2023-09-08 13:02 | MHC.OFFWIV ---
Intake Vital Signs 09/08/23 13:02 Height 5 ft 4 in Weight 169 lb BMI 29.0 BP 118/60 Blood Pressure Location Lt brachial Position Sitting Pulse 60 Pulse Source Pulse Oximeter Temp 97.3 F Temp Source Temporal Artery Scan Pulse Oximetry (%) 98 Oxygen Delivery Method Room Air Intake Visit Reasons: EP Bruises, Ankle swelling, last BM 1 week Intake Note: pt is here today for bruises ankle swelling started 2 weeks ago Patient Tobacco Use Status: Former Tobacco user Allergies No Known Allergies [No Known Allergies*] Allergy (Verified 09/08/23 13:06) Do you need a note to return to daycare/school/sports/work: No HPI HPI Comments History of Present Illness Details Patient is an 82-year-old male with a history of CAD, CKD, PVD complaining of bilateral lower extremity edema and bilateral upper extremity bruising. He states he is noticed that his legs have been swelling more than normal lately. He has not tried anything to make it better but hurt if he raised his legs at the end of the day, this could help, he changed his socks to a less compressive sock thinking that would help. He denies any changes in his fluid intake or his salt intake. He denies any shortness of breath. He has been taking his regular daily medications, as prescribed. He has not sure if he has ever had an ultrasound of his heart but he knows that his vascular doctor at [facility] does some tests every time he sees him. He denies taking a blood thinner but does state he takes 81mg aspirin daily [facility] Medical History Bilateral carotid artery stenosis Sinus bradycardia Gallstone CKD (chronic kidney disease) stage 2, GFR 60-89 ml/min Diverticulosis History of DVT of lower extremity Former smoker, stopped smoking in distant past Hx of myocardial infarction CAD (coronary artery disease) Hyperkalemia Benign prostatic hyperplasia PVD (peripheral vascular disease) Essential hypertension Dyslipidemia Surgical History Status post insertion of iliac artery stent Family History Father Heart problem Substance use disorder Mother Heart problem Social History Housing: Apartment Alcohol intake: current Alcohol intake frequency: a few times a week Alcohol type: wine Patient Tobacco Use Status: Former Tobacco user e-Cigarette/Vaping Use: Never Used service: No Current occupational status: retired Cognitive needs: No Hearing needs: No Vision needs: Yes Review of Systems Const All systems reviewed & are unremarkable except as noted in HPI and below Physical Exam Vital Signs: Last Vital Signs Temp 97.3 F 09/08/23 13:02 Pulse 60 09/08/23 13:02 BP 118/60 09/08/23 13:02 Pulse Ox 98 09/08/23 13:02 Oxygen Delivery Method Room Air 09/08/23 13:02 BMI result Body Mass Index 29.0 Const General: cooperative, healthy appearing, comfortable, no acute distress and well developed Orientation/consciousness: patient oriented x3 Limitations: no limitations HEENT Head: Yes normal to inspection Eyes General: appearance normal, both eyes and all related structures Neck Neck: Yes normal visual inspection and Yes full ROM Resp Effort & Inspection: normal respiratory effort and able to speak in complete sentences Auscultation: clear to auscultation bilaterally Cardio Rate: regular rate Rhythm: regular rhythm Heart sounds: normal S1 and S2 Skin General skin exam: ecchymosis (Areas of ecchymosis on bilateral upper extremities) Neuro General: patient oriented x3 Extrem General: Yes normal to inspection Results Reviewed Results Reviewed: No echocardiogram found on file, I only see EKG's Assessment & Plan Assessment & Plan (1) Bilateral lower extremity edema: Code(s): R60.0 - Localized edema Plan: Discussed with Dr. Alaniz, I will start patient on 20 mg PO Lasix daily, did educate patient on how to use, take early in the morning, know that he will be urinating more than normal, he can continue his normal fluid intake. If he notices that the swelling has gone down in his legs, he can stop taking the Lasix. I told him I would send 5 pills to his pharmacy, and he will follow up with Dr. Alaniz next week for further workup. Also recommended compression stockings and raising his legs above his heart a few times a day. Plan see above Coding Level of Care Code Est Pt Level 3 (55405) Diagnoses Bilateral lower extremity edema R60.0
== END 2023-09-08 14:09 | disposition home or self-care (01) ==
PROVIDERS: PCP Internal Medicine; Visit Provider Physician Assistant
DX: R60.0 Localized edema (principal)
CPT/HCPCS: 99213

== ENCOUNTER 2023-09-12 08:20 | Outpatient (AMB) | payer MEDICARE, BC, SELFPAY ==
--- NOTE | 2023-09-12 08:45 | A.OFFPC_ITS ---
Vital Signs 09/12/23 08:46 Height 5 ft 4 in Weight 168 lb BMI 28.8 BP 132/58 L Blood Pressure Location Rt brachial Position Sitting Pulse 55 Pulse Source Pulse Oximeter Pulse Oximetry (%) 95 Oxygen Delivery Method Room Air Intake Visit Reasons: f/u 09/07 [place] Visit (ok per [place]) Intake Note: Pt is here today to f/u bilateral lowwer ext edema Allergies No Known Allergies [No Known Allergies*] Allergy (Verified 09/12/23 09:39) Medication List - Last Reconciled 09/12/23 by Krissy Alaniz MD amlodipine 5 mg PO DAILY aspirin (Adult Low Dose Aspirin) 81 mg PO DAILY atorvastatin 40 mg PO DAILY blood pressure monitor Check blood pressure as directed cholecalciferol (vitamin D3) 125 mcg PO DAILY finasteride 5 mg PO DAILY lisinopril 20 mg PO DAILY metoprolol succinate ER 100 mg PO DAILY [id number] mcg (Centrum Silver Men) 1 tab PO DAILY tamsulosin 0.4 mg PO BEDTIME Tobacco use date assessed: 09/12/23 Fall risk assessment: No Falls in past year Last assessed Fall Risk: 09/12/23 Dental Screening Dental Screen Date: 09/12/23 Did you have a dental visit in the last 12 months?: No Was dental information given to patient?: Patient declined HPI f/u 09/07 [place] Visit (ok per AE) HPI Details 82-year-old male with history of coronar y artery disease, asymptomatic bilateral carotid artery stenosis, peripheral vascular disease, chronic kidney disease stage 2, hypertension and dyslipidemia, here today for follow-up after recent walk-in visit complaining of swelling in both lower extremities. Patient denies any shortness of breath, no chest pain, no lightheadedness , however he does complain of feeling more tired than usual. He states that he never received her furosemide prescribed at the walk-in, but has been elevating his legs which relieves the swelling . When he wakes up in the morning he legs are not swollen but it starts doing so towards the end of the day. [facility] Medical History Bilateral carotid artery stenosis Sinus bradycardia Gallstone CKD (chronic kidney disease) stage 2, GFR 60-89 ml/min Diverticulosis History of DVT of lower extremity Former smoker, stopped smoking in distant past Hx of myocardial infarction CAD (coronary artery disease) Hyperkalemia Benign prostatic hyperplasia PVD (peripheral vascular disease) Essential hypertension Dyslipidemia Surgical History Status post insertion of iliac artery stent Family History Father Heart problem Substance use disorder Mother Heart problem Social History Housing: Apartment Alcohol intake: current Alcohol intake frequency: a few times a week Alcohol type: wine Patient Tobacco Use Status: Former Tobacco user e-Cigarette/Vaping Use: Never Used service: No Current occupational status: retired Cognitive needs: No Hearing needs: No Vision needs: Yes Questionnaire Thrive Questionnaire Date Thrive assessed: 07/14/23 NATA-7 AMB Questionnaire NATA-7 Date NATA - 7 assessed: 07/14/23 Source: Developed by Drs. Gino Birch, Elissa Urena, Saw Zepeda and colleagues, with an educational guille from [employer]. Review of Systems Const Denies body aches, Denies fever(s), Denies headache(s) and Denies weakness Eyes Denies change in vision ENT Denies vertigo, Denies dizziness, Denies headache(s), Denies nasal congestion, Denies nasal discharge and Denies sore throat Card Denies chest pain, Denies irregular heart rhythm, Denies claudication, Denies leg ulcers, Denies lightheadedness, Denies palpitations and Denies dyspnea Resp Denies chest congestion, Denies cough and Denies dyspnea GI Denies abdominal pain and Denies heartburn Reports urinary hesitancy and Reports urinary incontinence Musc Denies muscle weakness, Denies numbness and Denies tingling Skin/Breast Denies lesions and Denies sores Neuro Denies vertigo, Denies dizziness, Denies headache(s), Denies numbness, Denies Sensory deficit (Neuro), Denies tingling, Denies paresthesias and Denies weakness Psych Reports no additional complaints Endo Denies polydipsia, Denies polyuria and Denies palpitations Sunny/Lymph Reports easy bruising (In both arms) Aller/Immun Denies seasonal rhinorrhea Physical exam (Primary Care) Vital Signs: Last Vital Signs Pulse 55 09/12/23 08:46 BP 132/58 L 09/12/23 08:46 Pulse Ox 95 09/12/23 08:46 Oxygen Delivery Method Room Air 09/12/23 08:46 BMI result Body Mass Index 28.8 Tobacco/Smoking Status: Tobacco use Status Tobacco use date assessed 09/12/23 09/12/23 08:51 Patient Tobacco Use Status Former Tobacco user 09/12/23 08:51 e-Cigarette/Vaping Use Never Used 09/12/23 08:51 Thrive Assessment: Date of Thrive Assessment Date Thrive assessed 07/14/23 09/12/23 08:51 Const General: comfortable, no acute distress and Physically active Orientation/consciousness: patient oriented x3 HENMT Head: Yes normocephalic Ears: external ears normal General nose exam: Normal external nose present and No nasal discharge present Face and sinus: Yes face symmetric Eyes General: appearance normal, both eyes and all related structures Neck Neck: Yes full ROM, Yes no lymphadenopathy and Yes supple Thyroid: Thyroid normal Resp Auscultation: clear to auscultation bilaterally Cardio Rate: bradycardic Rhythm: regular rhythm Heart sounds: S1 normal heart sound present and S2 normal heart sound present Bruits: no abdominal aortic bruits GI Palpation (GI): No Abdominal aortic bruit present, Soft to palpation, nontender, no guarding and no masses Auscultation: normal bowel sounds General: Yes no CVA tenderness Back/Spine/Pelvis Back: no CVA tenderness and No back tenderness Skin General skin exam: no rashes or lesions noted Neuro General: patient oriented x3, gait normal, tone normal, moves all extremities, Normal light touch and pain sensation, no focal motor deficits and CN's II-XI intact bilaterally Cognition (Neuro): normal cognition Gait exam (Neuro): Normal gait present Sensory Exam: No Sensory deficit (Neuro) Extrem Other: Varicosities noted in both lower extremities General: Yes full ROM, Yes no joint enlargement, Yes no clubbing, cyanosis or edema, Yes no calf tenderness and Yes normal gait Psych Appearance: grossly normal and well kempt Mental Status: mental status grossly normal Speech and movement: Normal speech and movement present Affect: normal affect Assessment and Plan Assessment & Plan (1) Bilateral lower extremity edema: Code(s): R60.0 - Localized edema Plan: Slight ankle edema noted bilaterally,, no calf tenderness, likely due to chronic venous insufficiency. Advised to wear travel compression socks during the day when he is up and about and remove at night. Elevate legs as much as possible. Ordered a BNP and basic metabolic panel. Patient also is on amlodipine which could cause pedal edema towards especially towards the end of the day due to vasodilatation (2) CKD (chronic kidney disease) stage 2, GFR 60-89 ml/min: Code(s): N18.2 - Chronic kidney disease, stage 2 (mild) Plan: Basic metabolic panel (3) PVD (peripheral vascular disease): Comment: s/p stent in [place] 1985 Code(s): I73.9 - Peripheral vascular disease, unspecified Plan: Currently followed by vascular surgery at [facility], advised to wear trial compression socks during the day when up and about., currently followed by vascular surgery at [facility] (4) Essential hypertension: Code(s): I10 - Essential (primary) hypertension Plan: Blood pressure at goal of less than 130/80. Continue with amlodipine 5 mg daily and lisinopril 20 mg daily and metoprolol ER 100 mg daily.. Reinforced importance of following a low sodium diet, getting regular exercise, and lowering stress levels. Currently followed by [facility] cardiology, Dr. Mauro (5) Fatigue: Code(s): R53.83 - Other fatigue Qualifiers: Fatigue type: unspecified Qualified Code(s): R53.83 - Other fatigue Plan: Will check CBC, vitamin-D and B12 and folic acid, TSH and reflex free T4 (6) Constipation: Code(s): K59.00 - Constipation, unspecified Plan: Advised to eat 2 Prunes daily , prescription also sent for Colace 100 mg per capsule to take once a day, increase fluid intake, and dietary fiber intake, green leafy vegetable for added fiber Orders: Orders B Type Natriuretic Peptide Today I10 - Essential (primary) hypertension, I73.9 - Peripheral vascular disease, unspecified, N18.2 - Chronic kidney disease, stage 2 (mild), R53.83 - Other fatigue, R60.0 - Localized edema Complete Blood Count Auto Diff Today I10 - Essential (primary) hypertension, I73.9 - Peripheral vascular disease, unspecified, N18.2 - Chronic kidney disease, stage 2 (mild), R53.83 - Other fatigue, R60.0 - Localized edema TSH reflex Free T4 Today I10 - Essential (primary) hypertension, I73.9 - Peripheral vascular disease, unspecified, N18.2 - Chronic kidney disease, stage 2 (mild), R53.83 - Other fatigue, R60.0 - Localized edema Basic Metabolic Panel Fasting Today I10 - Essential (primary) hypertension, I73.9 - Peripheral vascular disease, unspecified, N18.2 - Chronic kidney disease, stage 2 (mild), R53.83 - Other fatigue, R60.0 - Localized edema Vitamin B12 and Folate Today I10 - Essential (primary) hypertension, I73.9 - Peripheral vascular disease, unspecified, N18.2 - Chronic kidney disease, stage 2 (mild), R53.83 - Other fatigue, R60.0 - Localized edema Vitamin D 25-OH Total Today I10 - Essential (primary) hypertension, I73.9 - Peripheral vascular disease, unspecified, N18.2 - Chronic kidney disease, stage 2 (mild), R53.83 - Other fatigue, R60.0 - Localized edema Medications: New docusate sodium (Colace) 100 mg PO DAILY PRN 30 caps 1RF constipation Coding Level of Care Code Est Pt Level 4 (75266) Diagnoses Bilateral lower extremity edema R60.0 CKD (chronic kidney disease) stage 2, GFR 60-89 ml/min N18.2 PVD (peripheral vascular disease) I73.9 Essential hypertension I10 Fatigue, unspecified type R53.83 Fatigue type: unspecified Constipation K59.00
[2023-09-12 08:46] VITALS: BP 132/58; PULSE 55; O2SAT 95; BMI 28.8
== END 2023-09-12 12:52 | disposition home or self-care (01) ==
PROVIDERS: PCP Internal Medicine; Visit Provider Internal Medicine
DX: R60.0 Localized edema (principal); I12.9 Hypertensive chronic kidney disease with stage 1 through stage 4 chronic kidney disease, or unspecified chronic kidney disease; N18.2 Chronic kidney disease, stage 2 (mild); I73.9 Peripheral vascular disease, unspecified; R53.83 Other fatigue; K59.00 Constipation, unspecified
CPT/HCPCS: 99214

== ENCOUNTER 2023-09-12 09:40 | Outpatient (REF) | payer MEDICARE, BC, SELFPAY ==
[2023-09-12 12:11] LABS: MANUAL DIFF FLAG NO
[2023-09-12 12:16] LABS: Basophils Percent Auto 0.5 % (0-2); Eosinophils Absolute Auto 0.2 X10*3/uL (0.0-0.4); Eosinophils Percent Auto 2.6 % (0-4); Hemoglobin 14.3 g/dl (14.0-18.0); Imm Gran Abs Auto 0.02 X10*3/uL (0.00-0.03); Imm Gran Pct Auto 0.3 % (0.0-0.4); Lymphocytes Absolute Auto 2.6 X10*3/uL (1.2-4.9); Lymphocytes Percent Auto 33.9 % (20-40); Mean Corpuscular Hemoglobin 32.9 pg (27.0-33.0); Mean Corpuscular Volume 96.6 fL (80.0-98.0); Mean Platelet Volume 11.5 fL (9.4-12.4); Monocytes Percent Auto 12.6 % (2-11); Neutrophils Absolute Auto 3.9 x10*3/uL (2.0-8.3); Neutrophils Percent Auto 50.1 % (45-73); Platelet Count 226 X10*3/uL (160-400); Red Blood Count 4.35 X10*6/uL (4.60-5.80); Red Cell Distribution Width 12.6 % (11.0-16.0); White Blood Count 7.7 X10*3/uL (4.8-10.8)
[2023-09-12 12:30] LABS: Anion Gap 12 (12-20); Blood Urea Nitrogen 27 mg/dL (9-16); Calcium 10.3 mg/dL (8.4-10.2); Carbon Dioxide 27 mmol/L (22-29); Chloride 108 mmol/L (96-108); Estimated Glomerular Filt Rate 49; Glucose Fasting 100 mg/dL (60-99); Potassium 4.6 mmol/L (3.3-5.1); Sodium 142 mmol/L (135-145)
[2023-09-12 12:48] LABS: TSH reflex Free T4 3.35 uIU/mL (0.32-4.0); Vitamin D 25-OH Total 90.4 ng/mL (>30)
[2023-09-12 12:58] LABS: B Type Natriuretic Peptide 203 pg/mL (<100)
[2023-09-12 13:00] LABS: Folate 12.1 ng/mL (> or = 4.0); Vitamin B12 583 pg/mL (200-900)
== END 2023-09-12 09:41 | disposition home or self-care (01) ==
LOC: HO.HMGCLDS 09:40
PROVIDERS: PCP Internal Medicine; Visit Provider Internal Medicine
DX: I12.9 Hypertensive chronic kidney disease with stage 1 through stage 4 chronic kidney disease, or unspecified chronic kidney disease (principal); N18.2 Chronic kidney disease, stage 2 (mild); R60.0 Localized edema; I73.9 Peripheral vascular disease, unspecified; R53.83 Other fatigue
CPT/HCPCS: 36415; 80048; 82306; 82607; 82746; 83880; 84443; 85025

== ENCOUNTER 2024-06-18 08:09 | Outpatient (REF) | payer MEDICARE, BC, SELFPAY ==
[2024-06-18 10:33] LABS: Anion Gap 11 (12-20); Blood Urea Nitrogen 24 mg/dL (9-16); Calcium 8.9 mg/dL (8.4-10.2); Carbon Dioxide 26 mmol/L (22-29); Chloride 108 mmol/L (96-108); Estimated Glomerular Filt Rate 55; Glucose Random 92 mg/dL (60-115); Potassium 4.5 mmol/L (3.3-5.1); Sodium 140 mmol/L (135-145)
[2024-06-18 11:01] LABS: Prostate Specific Antigen 2.37 ng/mL (<0.05-4.0)
== END 2024-06-18 08:10 | disposition home or self-care (01) ==
LOC: HO.HMGCLDS 08:09
PROVIDERS: PCP Internal Medicine; Visit Provider Physician Assistant
DX: N40.1 Benign prostatic hyperplasia with lower urinary tract symptoms (principal); N13.8 Other obstructive and reflux uropathy; Z12.5 Encounter for screening for malignant neoplasm of prostate
CPT/HCPCS: 36415; 80048; 84153

== ENCOUNTER 2024-07-19 08:07 | Outpatient (REF) | payer MEDICARE, BC, SELFPAY ==
--- OUTSIDE RECORDS SUMMARY | 2024-07-19 08:16 | XMS_ITS ---
Demographics Address [address] [place] [address] Mobile Email Address Preferred Language Unknown Marital Status Mu-Ism Affiliation Unknown Race Unknown Ethnic Group Unknown Author Name [facility] [place] [place] Address [address] [place] [address] Care Team Providers Care Brim Raiser Name Role Phone DIANNE BOCANEGRA Primary Care Provider Unavailabl e Insurance Providers: All historical and current Section Date Range: From patient's date of to the date document was created. This section includes the names of all active insurance providers for the patient. Insurance Provider Type of Coverage Plan Name Start of Policy Coverage End of Policy Coverage Group Number Member ID Insurance Provider's Telephone Number Policy Duque's Name Patient's Relationship to Policy Duque [facility] FEP PREFERRED PROVIDER ORGANIZAT ION (PPO) STAND ELISABETH INDIV IDUAL Mar 21, 2010 [id number] [place] PATIENT MEDICARE (WNR) MEDICARE (M) PART A Nov 19, 2005 PART A [id number] [place] PATIENT MEDICARE (WNR) MEDICARE (M) PART B Nov 19, 2005 PART B [id number] [place] PATIENT Selected Encounter This section includes the information on record at [place] for the Encounter. Date/Time Encounter Type Encounter Description Reason Provider Source Dec 14, 2023 09:30 AM CPTR OPHTH DX IMG POST SEGMT OPTOMETRY ICD-10-CM 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, hole, or pseudohole, right eye MERHAR,LIGIA B E Encounter Template Text not used by [place] Assessments - Encounter Diagnoses This section includes the primary and secondary diagnoses documented for the Encounter. Date/Time Primary/Secondary Diagnosis Diagnosis Name Provider Source Dec 14, 2023 11:23 AM PRIMARY Macular cyst, hole, or pseudohole, right eye LIGIA ULRICH [facility] Social History: Smoking Status (Most current) and Tobacco Use (All prior to encounter date) This section includes the most current, and the historical, smoking and tobacco- related health factors from the [place] facility where the Encounter took place. Current Smoking Status This section includes the most current smoking, or tobacco-related health factor, from the [place] facility where the Encounter took place. Date/Time Current Smoking Status Comment Facil ity August 03, 2023 09:00 AM [place]-TOBACCO FORMER USER [facility] Tobacco Use History This section includes a history of the smoking, or tobacco-related health factors, that were collected on or before the date of the Encounter. The data comes from the [place] facility where the Encounter took place. Date/Time Smoking Status/Tobacco Use Comment F acility August 03, 2023 09:00 AM [place]-[facility] [facility] YRS [facility] MORE [facility] August 03, 2022 09:00 AM [place] [facility] August 03, 2022 09:00 AM [place] Encounter Notes: All associated encounter notes This section contains the clinical notes associated to the Encounter. 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 Pt educated on findings and how to use Home [employer] Grid test to monitor for any changes or distortion in vision. RTC 1 year for CEE or sooner prn /mia/ LJ JAIMES OPTOMETRY STUDENT Signed: 12/14/2023 12:19 /mia/ LIGIA ULRICH OD Manager Program Cosigned: 12/14/2023 14:37 12/14/2023 ADDENDUM STATUS: COMPLETED The optometry creative intern participated in this exam, I saw this [place] in conjunction with the optometry student. The visual images were captured by the optometry health breeder service technician. Results of testing assessed by the student and reviewed by myself. I agree with the stated findings, assessment and plan. I have added/edited the documentation to reflect my exam findings and changes to the assessment and plan. /grecia ULRICH OD Manager Program Signed: 12/14/2023 14:37 LJ JAIMES [place] [facility]
--- OUTSIDE RECORDS SUMMARY | 2024-07-19 08:16 | XMS_ITS | Encounter Summary ---
Demographics Address [address] [place] [address] Mobile Email Address Preferred Language Unknown Marital Status Quaker Affiliation Unknown Race Unknown Ethnic Group Unknown Author Name [facility] Address [address] [place] [address] Care Team Providers Care Civil Cad Tech Name Role Phone DIANNE BOCANEGRA Primary Care [...] Duque's Name Patient's Relationship to Policy Duque [facility] PREFERRED PROVIDER ORGANIZAT ION (PPO) STAND ELISABETH INDIV IDUAL Mar 21, 2010 [id number] [place] PATIENT MEDICARE (WNR) MEDICARE (M) PART A Nov 19, 2005 PART A [id number] [place] PATIENT MEDICARE (WNR) MEDICARE (M) PART B Nov 19, 2005 PART B [id number] [place] PATIENT Selected Encounter This section includes the information on record at [place] for the Encounter. Date/Time Encounter Type Encounter Description Reason Provider Source Dec 14, 2023 09:00 AM COMPRE OPH EXAM EST PT 1/> OPTOMETRY ICD-10-CM 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, hole, or pseudohole, right eye LIGIA ULRICH [facility] Encounter Template Text not used by ME Assessments - Encounter Diagnoses This section includes the primary and secondary diagnoses documented for the Encounter. Date/Time Primary/Secondary Diagnosis Diagnosis Name Provider Source Dec 14, 2023 02:36 PM PRIMARY Macular cyst, hole, or pseudohole, right eye LIGIA ULRICH [facility] Dec 14, 2023 02:36 PM SECONDARY Combined forms of age-related cataract, bilateral SERGLIGIA B [facility] Dec 14, 2023 02:36 PM SECONDARY Myopia, bilateral SERG,LIGIA [facility] Social History: Smoking Status (Most current) and Tobacco Use (All prior to encounter date) This section includes the most current, and the historical, smoking and tobacco- related health factors from the [place] facility where the Encounter took place. Current Smoking Status This section includes the most current smoking, or tobacco-related health factor, from the [place] facility where the Encounter took place. Date/Time Current Smoking Status Comment Pino ellsworth August 03, 2023 09:00 AM VA-TOBACCO FORMER USER [facility] Tobacco Use History This section includes a history of the smoking, or tobacco-related health factors, that were collected on or before the date of the Encounter. The data comes from the [place] facility where the Encounter took place. Date/Time Smoking Status/Tobacco Use Comment F accalvin August 03, 2023 09:00 AM ME-TOBACCO QUIT 15 YRS OR MORE [facility] August 03, 2022 09:00 AM VA-TOBACCO FORMER USER [facility] August 03, 2022 09:00 AM ME-TOBACCO QUIT 15 YRS OR MORE [facility] Encounter Notes: All associated encounter notes This section contains the clinical notes associated to the Encounter. Date/Time Encounter Note(s) Provider Source Dec 14, 2023 07:10 AM OPTOMETRY NOTE: LOCAL TITLE: OPTOMETRY NOTE STANDARD TITLE: OPTOMETRY NOTE DATE OF NOTE: DEC 14, 2023@07:10 ENTRY DATE: DEC 14, 2023@07:10:33 AUTHOR: LJ JAIMES EXP COSIGNER: LIGIA ULRICH URGENCY: STATUS: COMPLETED OPTOMETRY NOTE Has ADDENDA Active problems - Computerized Problem List is the source for the followin. Visual impairment 2. Impacted wax 3. HYPERTENSION NOS 4. COR ATHEROSCL UNSP TYP-VES Active Outpatient Medications (including Supplies): Active Non-VA Medications Status 1) Non-VA AMLODIPINE BESYLATE TAB BY MOUTH ACTIVE 2) Non-VA ASPIRIN 81MG EC TAB 81MG BY MOUTH ACTIVE 3) Non-VA ATORVASTATIN CALCIUM 80MG TAB 80MG BY MOUTH AT ACTIVE BEDTIME 4) Non-VA LISINOPRIL TAB BY MOUTH ACTIVE 5) Non-VA METOPROLOL SUCCINATE TAB,SA BY MOUTH ACTIVE 6) Non-VA TAMSULOSIN (1ST LINE ALPHA SUE) CAP,ORAL ACTIVE BY MOUTH Allergies: Patient has answered NKA All medications including those prescribed by outside VA's, community providers, and all OTC meds were reviewed and reconciled with patient to the best of their abilities. This 83 year old MALE is seen today for annual CEE ANUM: 12/08/22 Chief Complaint: denied any visual or ocular health concerns. He reported that his vision at near is better without glasses OHx: 1. Lamellar hole OD 2. Hx of retinal hemorrhage OD 3. NSC OU 4. Presbyopia OU Ocular Medications: None (-) Pain: (-) WILSON: (-) Diplopia: (-) Flashes: (-) Floaters: (-) Amaurosis Fugax/Tia's: (-) Eye Injury: (-) Eye Surgery: (-) TBI FOHx: (-) Glaucoma/ARMD/Blindness VITALS (most recent, as listed in the electronic record): B/P: 122/72 (08/03/2023 08:43) Pulse: 51 (08/03/2023 08:43) Temperature: 96.5 F [35.8 C] (08/03/2023 08:43) Weight: 170.6 lb [77.38 kg] (08/03/2023 08:43) Height: 64 in [162.6 cm] (08/03/2023 08:43) BMI: BMI: 29.3 PERTINENT LABS: HEMOGLOBIN A1C TREND No data available (-) Smoker/Length of Time/PPD: for 20 years (quit 33 yrs ago) Current Rx with last BCVA: OD: -0.50-0.50 x060 20/25- OS: -0.50 SPH 20/20-2 Add: +2.75 DVA ( )sc ( x )cc - phoropter OD: 20/30 OS: 20/25+2 Pupils: PERRL (-)APD EOMs: SAFE OU, (-)Pain/Diplopia CVF (facial, peripheral): FTFC OU Subjective Refraction: OD: -0.50-0.50 x060 20/30 OS: -0.50 SPH 20/20-2 Add: +2.25 20/40 Final SRx for NVO OD: +2.25-0.50 x 060 OS: +2.50 SPH All the above performed by student, reviewed by attending Anterior segment: Performed by student, repeated by attending * Lids: Pinguecula nasal OD; (+) stenosed lower puntum OU Conj: white and quiet OU Cornea: Arcus 360 AC: D&Q OU Angles: 4x4 OU Iris: flat and clear OU Lens: 1-2+ NS OU and 1+ ACC OD>OS with some water vacuole OU Tonometry: Performed by student, reviewed by attending * [x ] GAT [ ] iCare OD 15 mmHg OS 15 mmHg Time: 9:05am Fundus exam: Dilated: xxxx Non dilated: Dilating Drops: 1GTT 1 % Tropicamide OU & 1GTT 2.5% Phenylephrine OU (Pt. ed. on side effects, dilation warning given and verbal consent obtained) Patient advised not to drive if they feel they have any symptoms which could affect their ability to drive safely. Patient advised not to engage in any activities which could put themselves or others at risk if they feel they have any symptoms which could affect their ability to perform those activities safely. 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 Combined Form Cataracts OU - Pt. ed. on findings - cataracts are not visually significant and that surgery is not necessary at this time - Ed. on importance of UV protection and on symptoms of glare - Continue to monitor 3. Epiretinal membrane OD - Pt. ed on findings - Stable - Monitor yearlyMacula OCT report: 4. Myopia and presbyopia OU - Pt. ed. on todays findings - Vision is stable compared to previous exam - Ordering duplicate frames for NVO - Monitor RTC 1 year or sooner prn /es/ LJ JAIMES OPTOMETRY STUDENT Signed: 12/14/2023 12:19 /es/ LIGIA ULRICH OD Hide Dropper Cosigned: 12/14/2023 14:36 12/14/2023 ADDENDUM STATUS: COMPLETED The optometry internal control consultant participated in this exam, I saw this [place] in conjunction with the optometry student. The entrance tests and refraction were performed by the student and reviewed by me. I personally met with the patient, confirmed the history, complaints and the student's findings, and performed slit lamp and fundus evaluation as indicated. I reviewed and agree with the stated findings, assessment and plan. I have added/edited the documentation to reflect my exam findings and changes to the assessment and plan. patient offered and declined printed medication list Medication Reconciliation: Outpatient: Has the patient been taking medications as documented in the EMLR? YES: The patient has been taking medications as documented in the EMLR. Essential Medication List for Review used to complete this medication reconciliation. INCLUDED IN THIS LIST: Alphabetical list of active outpatient prescriptions dispensed from this VA (local) and dispensed from another VA or [facility]D facility (remote) as well as inpatient orders (local, pending and active), local clinic medications, locally documented non-VA medications, and local prescriptions that have or been discontinued in the past 90 days. - All changes in medications, including all non-VA/Herbal/OTC medications were entered into CPRS. - If there were any medications the patient should no longer take, they were discontinued. - The patient/caregiver was instructed to update this list, discard old lists, and take this list to the next appointment, whether with a VA or non-VA provider. JLV Link Data on this list may not be complete. Please check Naonext. Allergies/ADRs (Tool #5) FACILITY ALLERGY/ADR -------- No Remote Allergy/ADR Data available for this patient [facility] No Known Allergies Med Recon NoGlossary (Tool #1) INCLUDED IN THIS LIST: Alphabetical list of active outpatient prescriptions dispensed from this VA (local) and dispensed from another VA or [facility]D facility (remote) as well as inpatient orders (local pending and active), local clinic medications, locally documented non-VA medications, and local prescriptions that have or been discontinued in the past 90 days. Non-VA Meds Last Documented On: August 03, 2023 NOTE The display of VA prescriptions dispensed from another [place] or [facility] facility (remote) is limited to active outpatient prescription entries matched to National Drug File at the originating site and may not include some items such as investigational drugs, compounds, etc. NOT INCLUDED IN THIS LIST: Medications self-entered by the patient into personal health records (i.e. C3DNA) are NOT included in this list. Non-VA medications documented outside this [place], remote inpatient orders (regardless of status) and remote clinic medications are NOT included in this list. The patient and provider must always discuss medications the patient is taking, regardless of where the medication was dispensed or obtained. Non-VA AMLODIPINE BESYLATE TAB TAKE BY MOUTH Non-VA medication not recommended by VA provider. Non-VA ASPIRIN 81MG EC TAB TAKE ONE TABLET BY MOUTH Non-VA medication not recommended by VA provider. Non-VA ATORVASTATIN CALCIUM 80MG TAB TAKE ONE TABLET BY MOUTH AT BEDTIME Patient wants to buy from Non-VA pharmacy. Medication prescribed by Non-VA provider. Non-VA LISINOPRIL TAB TAKE BY MOUTH Non-VA medication not recommended by VA provider. Non-VA METOPROLOL SUCCINATE TAB,SA TAKE BY MOUTH Non-VA medication not recommended by VA provider. Non-VA TAMSULOSIN (1ST LINE ALPHA SUE) CAP,ORAL TAKE BY MOUTH Non-VA medication not recommended by VA provider. SUPPLIES /mia/ LIGIA ULRICH OD Hide Dropper Signed: 12/14/2023 14:36 LJ JAIMES [facility]
--- OUTSIDE RECORDS SUMMARY | 2024-07-19 08:16 | XMS_ITS | Data Portability ---
Author Organization [place] - [facility] Address [address] [place] [address] Care Team Providers Care Cause Analyst Name Role Phone FRANCISCO EDGAR Primary Care Provider Assessment Encounter Date Assessment Date Assessment LastModified by Organization Details LastModified Time 11/11/2023 11/11/2023 I am seeing the patient today under the supervision of Dr Maki who was available but who did not see the patient. [email or web address] Not available 11/11/2023 10:36:12 04/04/2024 04/04/2024 I am seeing the patient today under the supervision of Dr Maki who was available but who did not see the patient. [email or web address] Not available 04/04/2024 13:40:22 Plan of Treatment Reminders Order Date Submit Date Provider Last Modified By Organization Details Last Modified Time Details Appointments None record ed. Lab None record ed. Referral None record ed. Procedures None record ed. Surgeries None record ed. Imaging None record ed. Medication Orders None record ed. Patient TargetsNo targets recorded. Patient InstructionsNo instructions recorded. Reason for Referral None Reported. 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 Procedures Surgical History Date Name Laterality Status Provider Name and Address Organization Details Recorded Time 5 JZShoulder INJ completed Trevor Pierce PA-C [address], [place], [address], [facility] 04/04/2024 13:40:34 4 JZShoulder INJ completed Trevor Pierce PA-C [address], [place], [address], [facility] 11/11/2023 10:36:06 Imaging Results None recorded. Procedure Notes None recorded. Medical Equipment None Reported. Allergies No known drug allergies Medications Name Sig Start Date Stop Date Status Note LastModified by Organization Details LastModified Time atorvastatin 40 mg tablet TAKE ONE TABLET BY MOUTH EVERY DAY active Not Available Not Available No t Available azithromycin 250 mg tablet TAKE 2 TABLETS ON FIRST DAY , THEN 1 TABLET DAILY FOR 4 DAYS 11/10 completed Not Available Not Available Not Available ofloxacin 0.3 % eye drops APPLY 5 DROPS TO EACH EAR TWO TIMES A DAY FOR 3 DAYS. 11/10 completed Not Available Not Available Not Available lisinopril 20 mg tablet TAKE ONE TABLET BY MOUTH EVERY DAY active Not Available Not Available No t Available metoprolol succinate ER 100 mg tablet,exten ded release 24 hr TAKE ONE TABLET BY MOUTH EVERY DAY active Not Available Not Available No t Available amlodipine 5 mg tablet TAKE ONE TABLET BY MOUTH EVERY DAY active Not Available Not Available No t Available aspirin 81 mg tablet,delay ed release TAKE 1 TABLET BY MOUTH DAILY. active Not Available Not Available No t Available ofloxacin 0.3 % ear drops INSTILL 4 DROPS TWICE A DAY BY OTIC ROUTE FOR 3 DAYS. active Not Available Not Available No t Available tamsulosin 0.4 mg capsule TAKE ONE CAPSULE BY MOUTH DAILY AT BEDTIME active Not Available Not Available No t Available docusate sodium 100 mg capsule TAKE 1 CAPSULE BY MOUTH DAILY NEEDED FOR CONSTIPA TION. active Not Available Not Available No t Available finasteride 5 mg tablet TAKE 1 TABLET BY MOUTH ONCE A DAY. active Not Available Not Available No t Available Vitals Date Recorded Body height Body mass index (BMI) Body weight Provider Name and Address Organization Details Last Updated DateTime 11/11/2023 162.56 cm 29.4 kg/m2 67206.3 g Casey Angel [facility] 11/11/2023 10:32:40 Date Recorded Body height Body mass index (BMI) Body weight Provider Name and Address Organization Details Last Updated DateTime 04/04/2024 162.56 cm 29.4 kg/m2 61374.3 g Casey Angel [facility] 04/04/2024 13:31:10 Social History None recorded. Functional Status None recorded. Mental Status None recorded. Family History Nothing Reported. Medical History No medical history recorded. Past Encounters Encounter ID Performer Location Encounter Start Date Encounter Closed Date Diagnosis/Indication Diagnosis SNOMED-CT Code Diagnosis ICD10 Code Diagnosis Note [id number] [facility] [address] [place] [address] 11/11/2023 10:28:02 12/08/2023 15:04:20 Impingement syndrome of left shoulder region [id number] 98106 M75.42 [id number] [facility] [address] [place] [address] 04/04/2024 13:22:11 04/16/2024 09:16:25 Impingement syndrome of left shoulder region [id number] 49438 M75.42 Health Concerns Section Related Observation LastModified by Organization Detai ls LastModified Time None Recorded Concern Status LastModified by Organization Details LastModified Time None Recorded Advance Directives Directive None Recorded Payers Encounter Date Sequence Insurance Name Policy Number Policy Duque Covered Member ID Duque Member ID Guarantor Name 11/11/2023 2 [place] 104 Lobito B Boissonnault [id number] Lobito B Boissonnault 11/11/2023 1 [place] Lobito B Boissonnault [id number] Lobito B Boissonnault 04/04/2024 2 [place] 104 Lobito B [place]issonnault [id number] Lobito B Boissonnault 04/04/2024 1 [place] Lobito B Boissonnault [id number] Lobito B Boissonnault
--- OUTSIDE RECORDS SUMMARY | 2024-07-19 08:16 | XMS_ITS ---
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 Date/Time Encounter Type Encounter Description Reason Provider Source August 03, 2023 09:00 AM OFFICE O/P EST LOW 20 MIN PRIMARY CARE/MEDICINE ICD-10-CM H53.30 Unspecified disorder of binocular vision DIANNE JOSHUA IHE Encounter Template Text not used by [place] Assessments - Encounter Diagnoses This section includes the primary and secondary diagnoses documented for the Encounter. Date/Time Primary/Secondary Diagnosis Diagnosis Name Provider Source August 03, 2023 09:16 AM PRIMARY Unspecified disorder of binocular vision DIANNE JOSHUA [facility] Plan of Treatment: Future Appointments (+ 6 months) and Future Tests (+/- 45 days) The Plan of Treatment section includes future care activities for the patient from all [place] [facility]. This section includes future appointments and future orders which are active, pending or scheduled. Future Appointments This section includes appointments that were scheduled to occur 6 months from the date of the Encounter, up to a maximum of 20 appointments. The data comes from all [place] treatment facilities. Appointment Date/Time Appointment Type Appointme nt Facility Name Dec 14, 2023 09:00 AM AMBULATORY - MEDICINE [facility] Dec 14, 2023 09:30 AM AMBULATORY MEDICINE [facility] Vital Signs: All taken on the encounter date This section contains inpatient and outpatient Vital Signs collected on the date of the Encounter. Date/Time Temperature Pulse Blood Pressure Respiratory Rate SP02 Pain Height Weight Body Mass Index Source August 03, 2023 08:43 AM 96.5 51 122/72 16 96 0 64 170.6 29 [facility] Social History: Smoking Status (Most current) and Tobacco Use (All prior to encounter date) This section includes the most current, and the historical, smoking and tobacco- related health factors from the [place] facility where the Encounter took place. Current Smoking Status This section includes the most current smoking, or tobacco-related health factor, from the [place] facility where the Encounter took place. Date/Time Current Smoking Status Comment Facil ity August 03, 2023 09:00 AM VA-TOBACCO FORMER USER [facility] Tobacco Use History This section includes a history of the smoking, or tobacco-related health factors, that were collected on or before the date of the Encounter. The data comes from the [place] facility where the Encounter took place. Date/Time Smoking Status/Tobacco Use Comment F acility August 03, 2023 09:00 AM [place]-TO[place]AC[place] QUIT 15 YRS OR MORE [facility] August 03, 2022 09:00 AM VA-TOBACCO FORMER USER [place] [facility] [place] [facility] August 03, 2022 09:00 AM [place]-TOBACCO QUIT 15 YRS OR MORE [place] [facility] [place] [facility] Encounter Notes: All associated encounter notes This section contains the clinical notes associated to the Encounter. Date/Time Encounter Note(s) Provider Source August 03, 2023 09:13 AM PHYSICIAN NOTE: LOCAL TITLE: MD NOTE STANDARD TITLE: PHYSICIAN NOTE DATE OF NOTE: AUGUST 03, 2023@09:13 ENTRY DATE: AUGUST 03, 2023@09:13:08 AUTHOR: DIANNE JOSHUA EXP COSIGNER: URGENCY: STATUS: COMPLETED Patient Name: DAMON JOHNSON VITALS: Patient temperature: 96.5 F [35.8 C] (08/03/2023 08:43) Blood pressure: 122/72 (08/03/2023 08:43) Patient height: 64 in [162.6 cm] (08/03/2023 08:43) Patient weight: 170.6 lb [77.38 kg] (08/03/2023 08:43) Patient BMI: BMI: 29.3 Patient pulse: 51 (08/03/2023 08:43) Patient respiration: 16 (08/03/2023 08:43) Patient Pulse Oximetry: 96% (08/03/2023 08:43) Pain Ratin (08/03/2023 08:43) Active VA Medications: Active Outpatient Medications (including Supplies): Active Non-VA Medications Status 1) Non-VA AMLODIPINE BESYLATE TAB BY MOUTH ACTIVE 2) Non-VA ASPIRIN 81MG EC TAB 81MG BY MOUTH ACTIVE 3) Non-VA ATORVASTATIN TAB BY MOUTH ACTIVE 4) Non-VA LISINOPRIL TAB BY MOUTH ACTIVE 5) Non-VA METOPROLOL SUCCINATE TAB,SA BY MOUTH ACTIVE 6) Non-VA TAMSULOSIN (1ST LINE ALPHA SUE) CAP,ORAL ACTIVE BY MOUTH Remote Medications: No Active 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 Alaniz, [place] only for optometry and audiology History of present illness Wears eyeglasses for decreased vision. He is content with vision care. He feels well today with no complaints. He stays active with activities. Physical examination Well-developed well-nourished male in no acute distress EOMI, perrla Ears without cerumen or erythema Assessment and plan: 1. Decreased vision: Followed by optometry Plan: Continue above. Follow-up 1 year Patient declined all vaccines Medication Reconciliation: Outpatient: Has the patient been taking medications as documented in the EMLR? YES: The patient has been taking medications as documented in the EMLR. Essential Medication List for Review used to complete this medication reconciliation. INCLUDED IN THIS LIST: Alphabetical list of active outpatient prescriptions dispensed from this [place] (local) and dispensed from another [place] or [facility] facility (remote) as well as inpatient orders [...] whether with a VA or non-VA provider. Pneumococcal Conjugate Vaccine (PCV15/PCV20): Refuses PCV vaccine Immunization: PNEUMOCOCCAL CONJUGATE, UNSPECIFIED FORMULATION Refusal Reason: PATIENT DECISION Patient refuses all immunization(s) in the PneumoPCV group Date Documented: 08/03/23 09:15 COVID-19 Immunization: Refused Moderna Monovalent COVID-19 vaccine Immunization: COVID-19 (MODERNA), MRNA, LNP-S, PF, 50 MCG/0.5 ML (AGES 12+ YEARS) Refusal Reason: PATIENT DECISION Patient refuses all immunization(s) in the COVID-19 group Date Documented: 08/03/23 09:15 Tdap Immunization: The patient declines to receive the recommended dose of Tdap vaccine. Immunization: TDAP Refusal Reason: PATIENT DECISION Patient refuses all immunization(s) in the TDAP group Date Documented: 08/03/23 09:15 Herpes Zoster (Shingles) Vaccine: The patient declines to receive the recommended dose of zoster (shingles) vaccine. Immunization: ZOSTER RECOMBINANT Refusal Reason: PATIENT DECISION Patient refuses all immunization(s) in the ZOSTER group Date Documented: 08/03/23 09:16 /mia/ Dianne Joshua MD Staff Physician Signed: 08/03/2023 09:16 DIANNE JOSHUA [place] [facility] [place] [facility] August 03, 2023 08:48 AM PREVENTIVE MEDICIN E NURSING NOTE: LOCAL TITLE: CLINICAL REMINDERS/NURSING STANDARD TITLE: PREVENTIVE MEDICINE NURSING NOTE DATE OF NOTE: AUGUST 03, 2023@08:48 ENTRY DATE: AUGUST 03, 2023@08:48:21 AUTHOR: JENNIFER MCGREGOR EXP COSIGNER: URGENCY: STATUS: COMPLETED Alcohol Use Screen (AUDIT-C): Alcohol Screen: SCREEN FOR ALCOHOL (AUDIT-C) An alcohol screening test (AUDIT-C) was negative (score=4). 1. How often did you have a drink containing alcohol in the past year? Consider a drink to be a 12 ounce can or bottle of regular beer, 8 ounces of malt liquor, a 5 ounce glass of table wine, or a 1.5 ounce shot of liquor (like scotch, gin, or vodka). Four or more times a week 2. How many drinks containing alcohol did you have on a typical day when you were drinking in the past year? One or two drinks 3. How often did you have six or more drinks on one occasion in the past year? Never Sexual Orientation: The patient thinks of their sexual orientation as: Straight or Heterosexual Tobacco Use Screening: The patient is a former tobacco user. The patient quit fifteen or more years ago. Falls & Incontinence Screen: Falls Screen: 4. No falls within the past year. Incontinence Screen YES - Incontinence is a problem for this patient. Is urinary incontinence NEW for this patient? NO - Incontinence is NOT a new problem. What is the current treatment? depends for last 6 months Depression Screening: Perform PHQ-2 A PHQ-2 screen was performed. The score was 0 which is a negative screen for depression. Over the past two weeks, how often have you been bothered by the following problems? 1. Little interest or pleasure in doing things Not at all 2. Feeling down, depressed, or hopeless Not at all Advance Directive Screen MH AD: Patient has an up-to-date Advance Directive at an outside, non-va facility and was asked to forward a copy to his/her clinician. Comment: vet given advance directive paperwork Suicide Screen: C-SSRS Screening [place] Suicide Severity Rating Scale (C-SSRS) screener 1. Over the past month, have you wished you were or wished you could go to sleep and not wake up? No 2. Over the past month, have you had any actual thoughts of killing yourself? No 3. Over the past month, have you been thinking about how you might do this? Response not required due to responses to other questions. 4. Over the past month, have you had these thoughts and had some intention of acting on them? Response not required due to responses to other questions. 5. Over the past month, have you started to work out or worked out the details of how to kill yourself? Response not required due to responses to other questions. 6. If yes, at any time in the past month did you intend to carry out this plan? Response not required due to responses to other questions. 7. In your lifetime, have you ever done anything, started to do anything, or prepared to do anything to end your life (for example, collected pills, obtained a gun, gave away valuables, went to the roof but didn't jump)? No 8. If YES, was this within the past 3 months? Response not required due to responses to other questions. /mia/ JENNIFER MCGREGOR LPN LPN Signed: 08/03/2023 08:54 JENNIFER MCGREGOR [place] [facility]
--- OUTSIDE RECORDS SUMMARY | 2024-07-19 08:16 | XMS_ITS | Continuity of Care Document ---
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 It does not include entries that were removed or entered in error. Problem Status Onset Date Problem Type Date of Resolution Comments Source Visual impairment Active 4 Condition August 03, 2023 Entered By: DIANNE BOCANEGRA Comment: wears eyeglasses [facility] [place] [facility] Impacted wax Active 3 Condition August 03, 2022 Entered By: DIANNE BOCANEGRA Comment: treated with irrigation [facility] [place] [facility] COR ATHEROSCL UNSP TYP-VES Active Condition [facility] [place] [facility] HYPERTENSION NOS Active Condition [facility] [place] [facility] Diagnosis: ICD-10-CM Z46.0 Encounter for fit/adjst of spectacles and contact lenses Active Diagnosis [facility] [place] [facility] Diagnosis: ICD-10-CM 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 Medication Details Route Status Patient Instructions Prescription Expires Prescription Number Last Dispense Date Ordering Provider Order Date Order Qty Source AMLODIPINE BESYLATE TAB TAKE BY MOUTH ORAL ACTIVE JODI VOSS 2020 [facility] ASPIRIN 81MG TAB,EC TAKE ONE TABLET BY MOUTH ORAL ACTIVE JODI VOSS 2020 [facility] ATORVASTATI N CA 80MG TAB TAKE ONE TABLET BY MOUTH AT BEDTIME ORAL ACTIVE MAYNOR BOCANEGRA 2023 [facility] LISINOPRIL TAB TAKE BY MOUTH ORAL ACTIVE SHANIKAJODI J 2020 [facility] METOPROLOL SUCCINATE TAB,SA TAKE BY MOUTH ORAL ACTIVE OSHICASSIDYJODI J 2020 [facility] TAMSULOSIN (1ST LINE ALPHA SUE) CAP,ORAL TAKE BY MOUTH ORAL ACTIVE OSHINSLUISAJODI J 2020 [facility] Immunizations Combined list of available immunizations from the Department of Defense and Veterans Affairs facilities. Immunization Series Date Given Administered By Site Reaction Lot Number CVX Code Drug Trader Status Comments Source INFLUENZA, UNSPECIFIED FORMULATION 2022 88 complet ed Booster for Series, HISTORICA L INFORMATI ON - [facility] INFLUENZA, UNSPECIFIED FORMULATION 2021 88 complet ed HISTORICA L INFORMATI ON - SOURCE UNSPECIFI ED, [facility] COVID-19 (MODERNA), MRNA, LNP-S, PF, 100 MCG/0.5 ML DOSE 2 2020 207 complet ed MOD; [id number]; 1 [facility] COVID-19 (MODERNA), MRNA, LNP-S, PF, 100 MCG/0.5 ML DOSE 1 2020 207 complet ed MOD; [id number]; [facility] FLU,3 YRS (HISTORICAL) 2001 88 complet ed [place] PNEUMOCOCCAL, UNSPECIFIED FORMULATION 2001 H[facility] VOGT 109 complet ed [place] Vital Signs Combined list of inpatient and outpatient Vital Signs from Department of Defense and Veterans Affairs, ranging from 12 months to all on record, depending upon the facility. Vital Sign Value Date Comments Source SYSTOLIC BLOOD PRESSURE 122 08/03/19 24 08:43:32 [facility] [place] [facility] DIASTOLIC BLOOD PRESSURE 72 024 08:43:32 [facility] [place] PULSE OXIMETRY 96 08/03/2023 08:43:32 [facility] [place] WEIGHT 170.6 08/03/2023 08:43:32 [facility] [place] [facility] BMI 29 kg/m2 08/03/2023 08:43:32 [facility] [place] PAIN 0 08/03/2023 08:43:32 [facility] [place] HEIGHT 64 08/03/2023 08:43:32 [facility] [place] TEMPERATURE 96.5 08/03/2023 08:43:32 [facility] [place] PULSE 51 08/03/2023 08:43:32 [facility] [place] [facility] RESPIRATION 16 08/03/2023 08:43:32 [facility] [place] [facility] Encounters Combined list of: 1) Encounters from Department of Veterans Affairs facilities going backup to the last 18 months, not all [place] inpatient encounters are included; 2) Encounters from the Department of Defense facilities going backup to 280 months. Location Location Details Encounter Type Encounter Number Reason For Visit Attending Provider ADM Date DC Date Status Disposition Source [facility] Outpatient Encounter [id number] 05/17 [facility] [place] [facility] [facility] [place] OFFICE O/P EST LOW 20 MIN [id number] Diagnos is: ICD-10- CM H53.30 Unspeci fied disorde r of binocul ar vision LUIZ BOCANEGRA RD D 08/02 [facility] COMPRE OPH EXAM EST PT 1/> [id number] Diagnos is: ICD-10- CM 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, hole, or pseudoh ole, right eye MERHAR,ANGELLA H B 12/13 [facility] [place] CPTR OPHTH DX IMG POST SEGMT [id number] Diagnos is: ICD-10- CM 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, hole, or pseudoh ole, right eye ANGELLA ULRICH H B 12/13 [facility] FIT SPECTACLES MONOFOCAL [id number] Diagnos is: ICD-10- CM Z46.0 Encount er for fit/adj st of spectac les and contact lenses ANGELLA ULRICH H B 12/13 [facility] [place] [facility] Social History Combined list of available smoking, tobacco, and other social history from Department of Defense and Veterans Affairs facilities. Social History Type Response Date Comment Sour e Tobacco smoking status NHIS [place]-TOBACCO FORMER USER 08/03/2023 [place] [facility] [place] [facility] of [facility] 08/03/2023 [facility] [place] [facility] History of tobacco use [place]-TOBACCO FORMER USER 08/03/2022 [facility] [place] [facility] History of tobacco use HISTORY OF SMOKING 07/05/2001 x 10yrs [facility] Plan of Care List of future care activities from Department of Veterans Affairs facilities. Additional future care activities may be listed in the Assessment and Plan section. Date/Time Care Activity Care Activity Detail Facili ty 08/01/2024 AMBULATORY - MEDICINE AMBULATORY - MEDICI [place] [facility] [place] [facility]
--- OUTSIDE RECORDS SUMMARY | 2024-07-19 08:16 | XMS_ITS | Data Portability ---
Author Organization ID - [facility], Allergy Address [address] [address] Care Team Providers Care Security Guard Supervisor Name Role Phone FRANCISCO EDGAR Primary Care Provider Assessment Encounter Date Assessment Date Assessment LastModified by Organization Details LastModified Time 10/21/2023 10/21/2023 82-year-old male presents for reevaluation. On examination the PE tube has indeed fallen out and there is recurrent effusion. Audiometric testing was obtained today. Results of testing show conductive hearing loss on the right side with flat tympanogram. This is consistent with exam. Left hearing loss is unchanged. Patient will likely need tube replacement given the recurrent nature of this issue. Consider placement of T-tube for longer acting benefit. Will be scheduled for tube placement and follow-up after for repeat hearing test. Not available 10/21/2023 10:24:24 11/24/2023 11/24/2023 Informed Consent for right Myringotomy with Tympanostomy Tube Placement I discussed the risks, benefits and alternatives to tympanostomy and tubes, as well as the procedure itself, in detail. The surgical risks, including, though not limited to ear infection, permanent perforation, loss of hearing, postoperative drainage and allergic reactions to medication or materials as well as the anesthetic risks were discussed. We discussed the risk of retirement perforation following tube extrusion, with possible need for formal tympanoplasty in the future. We also discussed that if the tube remains in place for longer than 3 years, an additional procedure may be required to remove the tube. We discussed the need to maintain water precautions following this procedure for 2 weeks, then water precautions typically lifted. After full discussion, the patient would like to proceed with procedure. A prescription for 3 days topical antibiotics is sent to pharmacy. Follow-up in the office in approximately 1 month after procedure for reevaluation of hearing and then at 6-month intervals until tubes are no longer present. [email or web address] Not available 11/22/2023 10:11:19 12/28/2023 12/28/2023 The patient is doing well following RIGHT myringotomy with tympanostomy tube placement. RIGHT tympanostomy tubes is in good position and patent. An audiogram was obtained demonstrating resolution of the right sided mixed hearing loss. The patient will return in 6 months for reevaluation with PA. [email or web address] Not available 12/28/2023 14:22:58 Plan of Treatment Reminders Order Date Submit Date Provider Last Modified By Organization Details Last Modified Time Details Appointments FOLLOW UP 15 2024 02:15P Meir HESS MD Not available Not available Not available Lab None recorded. Referral None recorded. Procedures None recorded. Surgeries None recorded. Imaging None recorded. Medication Orders ofloxacin 0.3 % ear drops 2023 [id number], [address] [facility], [place], [address], 11/24/2023 11:03:21 Patient TargetsNo targets recorded. Patient InstructionsNo instructions recorded. Reason for Referral None Reported. Results Created Date Observation Date Name Description Value Unit Range Abnormal Flag Note LastModifiedBy Organization Detail LastModifiedTime 10/21/19 audio gram No observ ation record ed. [email or web address] Not Available 04/2023 13:25:24 11/09/19 24 05/23/2019 imagi ng/di agnos tic resul t No observ ation record ed. [email or web address] Not Available 02:01:11 11/09/19 24 06/30/2020 imagi ng/di agnos tic resul t No observ ation record ed. [email or web address] Not Available 02:01:18 11/09/19 24 09/06/2018 imagi ng/di agnos tic resul t No observ ation record ed. [email or web address] Not Available 02:02:05 11/09/19 24 12/23/2022 imagi ng/di agnos tic resul t No observ ation record ed. [email or web address] Not Available 02:02:08 11/09/19 24 02/09/2023 imagi ng/di agnos tic resul t No observ ation record ed. [email or web address] Not Available 02:02:11 11/09/19 24 05/23/2019 audio gram No observ ation record ed. [email or web address] Not Available 02:02:26 11/09/19 24 09/06/2018 audio gram No observ ation record ed. [email or web address] Not Available 02:02:47 12/29/19 audio gram No observ ation record ed. [email or web address] Not Available 12/19 12:12:11 Result Notes None recorded. 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 67090955553 100 Active 2022 Sensorine ural hearing loss, unilatera l, right ear, with restricte d hearing on the contralat eral side; Note: Date Diagnosed : 3 10:57 AM (H90.A21) Not Available [facility] 4 03:06:09 Disorder of right Eustachia n tube 16001954290 60251 Active 2018 Other specified disorders of Eustachia n tube, right ear; Note: Date Diagnosed : 09/06/2018 10:33 AM (H69.81) Not Available [facility] 4 03:06:10 Mixed conductiv e and sensorine ural hearing loss of left ear 42003470125 107 Active 2022 Mixed conductiv e and sensorine ural hearing loss, unilatera l, left ear with restricte d hearing on the contralat eral side; Note: Date Diagnosed : 3 10:57 AM (H90.A32) Not Available [facility] 4 03:06:09 Tinnitus of right ear 18327308126 08 Active 2018 Tinnitus, right ear; Note: Date Diagnosed : 09/06/2018 10:33 AM (H93.11) Not Available [facility] 4 03:06:09 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 59599247737 109 Active 2018 Sensorine ural hearing loss, unilatera l, left ear, with restricte d hearing on the contralat eral side; Note: Date Diagnosed : 09/06/2018 10:33 AM (H90.A22) Not Available [facility] 4 03:06:09 Mixed conductiv e and sensorine ural hearing loss, bilateral 114684432 Active 2019 Mixed conductiv e and sensorine ural hearing loss, bilateral ; Note: Date Diagnosed : 05/23/2019 11:38 AM (H90.6) Not Available [facility] 4 03:06:11 Mixed conductiv e and sensorine ural hearing loss of right ear 94141245926 105 Active 2018 Mixed conductiv e and sensorine ural hearing loss, unilatera l, right ear with restricte d hearing on the contralat eral side; Note: Date Diagnosed : 09/06/2018 10:33 AM (H90.A31) Not Available [facility] 4 03:06:11 Bilateral disorder of Eustachia n tubes 98974979366 44642 Active 2019 Other specified disorders of Eustachia n tube, bilateral ; Note: Date Diagnosed : 04/11/2019 10:17 AM (H69.83) Not Available [facility] 4 03:06:09 Chronic serous otitis media of right ear 348396802 Active 2023 ALEE HESS MD [address] [place] [address], [place] [place], [address] , [facility] - [facility] 4 09:05:26 Sensorine ural hearing loss of bilateral ears 177295171 Active 2023 NOAH CARVAJAL [address] [facility] [address], [place], [address] , [place] - [facility] 13:45:48 Problem Notes None recorded. Procedures Surgical History Date Name Laterality Status Provider Name and Address Organization Details Recorded Time 4 Air & Speech Audio with Tymps (04210, 30881 & 46765) completed ISSAC PALACIO, [facility] [address] [facility],[place] [address], [place], [address], [facility] - [facility] 12/28/2023 13:45:03 4 Myringotomy w/Placement of Tube right completed ALEE HESS MD [address] [facility],[place] [address], [place], [address], [facility] - [facility] 11/22/2023 10:11:03 4 Comp Audio with Tymps (93767 & 91655) completed DOM JEFFERSON, [facility] [address] [facility],[place] [address], [place], [address], [facility] - [facility] 10/21/2023 09:56:25 Imaging Results Imaging Date Name Status LastModified by Organiz ation Details LastModified Time 10/21/2023 audiogram completed [email or web address] Information n ot available 10/21/2023 13:25:24 05/23/2019 imaging/diagno stic result completed Information not available 11/09/2023 02:01:11 06/30/2020 imaging/diagno stic result completed Information not available 11/09/2023 02:01:18 09/06/2018 imaging/diagno stic result completed Information not available 11/09/2023 02:02:05 12/23/2022 imaging/diagno stic result completed Information not available 11/09/2023 02:02:08 02/09/2023 imaging/diagno stic result completed Information not available 11/09/2023 02:02:11 05/23/2019 audiogram completed Information not available 11/09/2023 02:02:26 09/06/2018 audiogram completed Information not available 11/09/2023 02:02:47 12/29/2023 audiogram completed [email or web address] Information n ot available 12/29/2023 12:12:11 Procedure Notes None recorded. Medical Equipment None Reported. Medications Name Sig Start Date Stop Date Status Note LastModified by Organization Details LastModified Time atorvastat in 40 mg tablet TAKE 1 TABLET BY MOUTH DAILY. active Not Available Not Available No t Available cetirizine 10 mg tablet 2018 active Medicatio n ID: [id number] Du ration Value: 30 Brand Name: cetirizin e Send Method: E-Prescri bed Subs Allowed: subs OK Specia l Instructi on: TAKE ONE TABLET BY MOUTH AT BEDTIME NEEDED FOR ALLERGIES Medicati onGeneric Name: cetirizin e Not Available Not Available Not Available azithromyc in 250 mg tablet TAKE 2 TABLETS ON FIRST DAY , THEN 1 TABLET DAILY FOR 4 DAYS active Not Available Not Available No t Available ofloxacin 0.3 % eye drops APPLY 5 DROPS TO EACH EAR TWO TIMES A DAY FOR 3 DAYS. active Not Available Not Available No t Available lisinopril 20 mg tablet TAKE 1 TABLET BY MOUTH DAILY. active Not Available Not Available No t Available metoprolol succinate ER 100 mg tablet,ext ended release 24 hr TAKE 1 TABLET BY MOUTH DAILY. active Not Available Not Available No t Available amlodipine 5 mg tablet TAKE 1 TABLET BY MOUTH DAILY. active Not Available Not Available No t Available aspirin 81 mg tablet,del ayed release TAKE 1 TABLET BY MOUTH DAILY. active Not Available Not Available No t Available ofloxacin 0.3 % ear drops INSTILL 4 DROPS TWICE A DAY BY OTIC ROUTE FOR 3 DAYS. active Not Available Not Available No t Available tamsulosin 0.4 mg capsule TAKE 1 CAPSULE BY MOUTH AT BEDTIME. active Not Available Not Available No t Available docusate sodium 100 mg capsule TAKE 1 CAPSULE BY MOUTH DAILY NEEDED FOR CONSTIPAT ION. active Not Available Not Available No t Available fluticason e propionate 50 mcg/actuat ion nasal spray,susp ension 2 puff into both nostrils 2019 active Medicatio n ID: [id number] Du ration Value: 30 Prescrib ed By Name: Michael Moss MD Brand Name: fluticaso ne propionat e Send Method: E-Prescri bed Subs Allowed: subs OK Medica tionGener icName: fluticaso ne propionat e Not Available Not Available Not Available finasterid e 5 mg tablet TAKE ONE TABLET BY MOUTH EVERY DAY active Not Available Not Available No t Available Century Vitamin 2018 active Medicatio n ID: [id number] Br and Name: vitamin S end Method: E-Prescri bed Subs Allowed: subs OK Medica tionGener icName: century vitamin Not Available Not Available Not Available June-estelita 8.6 mg tablet 2020 active Medicatio n ID: [id number] Br and Name: June-estelita Send Method: E-Prescri bed Subs Allowed: subs OK Specia l Instructi on: TAKE ONE TABLET BY MOUTH AT BEDTIME NEEDED FOR CONTIPATI ON Medica tionGener icName: June-estelita Not Available Not Available Not Available Vitals Date Recorded Body height Body mass index (BMI) Body weight Provider Name and Address Organization Details Last Updated DateTime 10/21/2023 162.56 cm 29.2 kg/m2 87538.7 g Cam Rockwell [place] [facility] 10/21/2023 09:13:10 Date Recorded Body height Body mass index (BMI) Body weight Provider Name and Address Organization Details Last Updated DateTime 11/24/2023 162.56 cm 29.2 kg/m2 88911.7 g Shyanne Sadler [place] - [facility] 11/24/2023 10:30:47 Date Recorded Body height Body mass index (BMI) Body weight Provider Name and Address Organization Details Last Updated DateTime 12/28/2023 162.56 cm 28.7 kg/m2 79197.93 g Shyanne Sadler MA [facility] 12/28/2023 14:07:51 Social History None recorded. Functional Status None recorded. Mental Status None recorded. Family History Nothing Reported. Medical History No medical history recorded. Past Encounters Encounter ID Performer Location Encounter Start Date Encounter Closed Date Diagnosis/Indication Diagnosis SNOMED-CT Code Diagnosis ICD10 Code Diagnosis Note [id number] PA-C [facility] [address] [address] 10/21/2023 08:46:53 10/21/2023 10:12:46 Bilateral chronic serous otitis 216484331 H65.23 Bilateral disorder of Eustachian tubes 8862883249 093885 H69.83 [id number] NOAH ROSEN [facility] [address] [address] 10/21/2023 09:56:05 10/25/2023 07:12:55 Mixed conductive and sensorineural hearing loss of right ear 9371229506 9105 H90.A31 Sensorineu ral hearing loss in left ear 3639912562 9109 H90.A22 Audiologic al evaluation results: Right ear: {{Normal N ormal through 2 kHz Mild M oderate* M oderately- severe Sev ere Profou nd}} {{hearing sloping to a mild slopi ng to a moderate s loping to moderately severe slo ping to severe slo ping to profound* flat high frequency low frequency mid frequency cookie bite de la torre curve}} {{with sen sorineural hearing loss with condu ctive hearing loss with mixed hearing loss with*}} {{excellen t* good fa ir poor no measurable }} word recognitio n. Left ear: {{Normal N ormal through 2 kHz* Mild Moderate M oderately- severe Sev ere Profou nd}} {{hearing sloping to a mild slopi ng to a moderate s loping to moderately severe slo ping to severe slo ping to profound* flat high frequency low frequency mid frequency cookie bite de la torre curve}} {{with sen sorineural hearing loss with* cond uctive hearing loss with mixed hearing loss with}} {{excellen t* good fa ir poor no measurable }} word recognitio n. Tympanomet ry: Right Ear:{{Type A Type As Type Ad Type C Type C, shallow & rounded Ty pe B* Type B with large volume Cou ld not maintain a hermetic seal}} Left Ear:{{Type A* Type As Type Ad Type C Type C, shallow & rounded Ty pe B Type B with large volume Cou ld not maintain a hermetic seal}} [id number] ALEE HESS MD [facility] [address] [address] 11/24/2023 10:23:04 11/24/2023 11:04:34 Chronic serous otitis media of right ear 850377595 H65.21 ALEE HESS MD [facility] [address] [facility] [place] [id number] 12/28/2023 13:20:30 12/28/2023 14:23:26 Chronic serous otitis media of right ear 200221531 H65.21 [id number] NOAH CARVAJAL [facility] [address] [facility] [place] [address] 12/28/2023 13:44:26 12/29/2023 07:28:34 Sensorineural hearing loss of bilateral ears 665473824 H90.3 Audiologic al evaluation results:Ri ght ear:{{Norm al sloping* M ild Modera te Moderat jaime-severe Severe Pr ofound Nor mal auditory thresholds }} to {{mild mod erate mode rately-sev ere severe * profound with}} {{sensorin eural hearing loss with* cond uctive hearing loss with mixed hearing loss with}} {{excellen t* good fa ir poor no t measurable }} word recognitio n.Left ear:DNT today.Tymp anometry:R ight Ear:{{Type A Type As Type Ad Type C Type C, shallow & rounded Ty pe B Type B with large volume Cou ld not maintain a hermetic seal*}}Lef t Ear:{{Type A Type As Type Ad Type C Type C, shallow & rounded Ty pe B Type B with large volume Cou ld not maintain a hermetic seal DNT#} } Significan t improvemen t since last visit. Ears are now symmetrica l. Health Concerns Section Related Observation LastModified by Organization Detai ls LastModified Time None Recorded Concern Status LastModified by Organization Details LastModified Time None Recorded Advance Directives Directive None Recorded Payers Encounter Date Sequence Insurance Name Policy Number Policy Duque Covered Member ID Duque Member ID Guarantor Name 10/21/2023 1 [place] [employer] Lobito Cast [id number] Lobito Cast 10/21/2023 2 [place] [employer] 104 Lobito B [place] [id number] Lobito Novak [place] 10/21/2023 1 [place] [employer] [place] Lobito Novak [place] [id number] Lobito Novak [place] 10/21/2023 2 [place] 104 Lobito Novak [place] [id number] Lobito Novak [place] 11/24/2023 1 [place] [facility] GOVERNMENT SERVICES Lobito Novak [place] [id number] 03 Lobito Novak [place] 11/24/2023 2 [place] 104 Lobito Novak [place] [id number] Lobito Novak [place] 12/28/2023 1 [place] [facility] [place] Lobito Novak [place] [id number] Lobito Novak [place] 12/28/2023 2 [place] 104 Lobito Novak [place] [id number] Lobito Novak [place] 12/28/2023 1 [place] [facility] SERVICES Lobito Novak [place] [id number] 03 Lobito Novak [place] 12/28/2023 2 [place] [employer] [place] 104 Lobito Novak [place] [id number] Lobito [place] Notes Date Note Type Note Provider Name and Address Organization Details Recorded Time 10/21/2023 text/html 82-year-old male with history of recurrent effusion of the right ear presents for reevaluation. Had RMT in office about a year ago but feels his tube has come out. Cannot hear much out of the right side. ALEE HESS MD [address] [place] [address], [address], [facility] - [facility] 10/21/2023 17:28:10 11/24/2023 text/html prev hx of right MT with Dr Moss12/31/22 - Right myringotomy tube, Ploskyhad nasopharynx exam 06/2020 - benignnow tube is out and he feels hearing is worse on right. left side is OK PV 10/21/23: Aminta noted right serous effusion retired from [employer]. very well travelled ALEE HESS MD [address] [facility],[place] [address], [place], [address], [place] - [facility] [place] 11/24/2023 11:04:07 12/28/2023 text/html tube checkfeels hearing is improved PV 11/24/23 Plosky: placement myringotomy tubeprev hx of right MT with Dr Moss12/31/22 - Right myringotomy tube, Ploskyhad nasopharynx exam 06/2020 - benign retired from [employer]. very well travelled ALEE HESS MD [address] [facility],[place] [address], [place], [address], [facility] - [facility] [place] 12/28/2023 14:23:11
--- OUTSIDE RECORDS SUMMARY | 2024-07-19 08:16 | XMS_ITS | Continuity of Care Document ---
Author Organization [facility] Address [address] [place] [id number]- Care Team Providers Care Public Housing Manager Name Role Phone Katty LINCOLN, Krissy Pérez Primary Care Physician Encounter [facility] Date(s): 07/09/24 - 07/16/24 [facility] [address] [place] [address]- Encounter Diagnosis Carotid stenosis(Discharge Diagnosis) - 07/09/24 Attending Physician: Kaley Ingram NP Admitting Physician: Kaley Ingram NP Referring Physician: Krissy Alaniz MD Encounter Type: Office Visit Allergies, Adverse Reactions, Alerts Substance Criticality Severity Reaction Reaction Severity Status Bee Stings Active Immunizations Given and Recorded Vaccine Date Status Refusal Reason pneumococcal 23-valent vaccine 06/09/11 Given Medications amlodipine 5 mg oral tablet 1 tablet = 5 mg, By Mouth, Daily, 0 Refills, Maintenance, 10/17/12 8:54:19 AM EDT Start Date: 10/17/12 Status: Ordered Repeat number: 1 aspirin 81 mg oral tablet 1 tablet = 81 mg, By Mouth, Daily, 0 Refills, Maintenance, 11/04/15 9:13:26 AM EDT Start Date: 11/04/15 Status: Ordered Repeat number: 1 atorvastatin 40 mg oral tablet 1 tablet = 40 mg, By Mouth, Daily at bedtime, 0 Refills, Maintenance, 07/14/11 8:24:39 AM EDT Start Date: 07/14/11 Status: Ordered Repeat number: 1 EpiPen 2-Cornelius 0.3 mg injectable kit Intramuscular, Once, 0 Refills, Maintenance, 11/27/13 10:24:23 AM EDT Start Date: 11/27/13 Status: Ordered Repeat number: 1 finasteride 5 mg oral tablet 0 Refills, Maintenance, 07/09/24 9:57:00 AM EDT, Partial fill upon patient request if the prescription is for a schedule II opioid drug. Start Date: 07/09/24 Status: Ordered Repeat number: 1 lisinopril 20 mg oral tablet 1 tablet = 20 mg, By Mouth, Daily, 0 Refills, Maintenance, 07/14/11 8:23:56 AM EDT Start Date: 07/14/11 Status: Ordered Repeat number: 1 metoprolol 100 mg oral tablet, extended release 100 mg, 1, tablet, By Mouth, Daily, # 30 tablet, Refills 0, Maintenance, 11/22/17 4:35:17 PM EDT Start Date: 11/22/17 Status: Ordered Quantity: 30.0 Unit: tablet Repeat number: 1 tamsulosin 0.4 mg oral capsule TAKE ONE CAPSULE BY MOUTH AT BEDTIME Start Date: 12/13/18 Status: Ordered Repeat number: 1 Vitamin C By Mouth, Daily, 0 Refills, Maintenance, 03/17/22 1:58:00 PM EST, Partial fill upon patient requestif the prescription is for a schedule II opioid drug. Start Date: 03/17/22 Status: Ordered Repeat number: 1 Vitamin D3 1000 intl units oral tablet 1 tablet = 25 mcg, By Mouth, Daily, # 30 tablet, 0 Refills, Maintenance, 03/17/22 1:58:00 PM EST, Tablet, Partial fill upon patient request if the prescription is for a schedule II opioid drug. 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 Carotid stenosis Confirmed Active CKD (chronic kidney disease) stage 2, GFR 60-89 ml/min Confirmed Active Claudication Confirmed Active Coronary artery disease 1 Confirmed 1997 Active DVT, lower extremity Confirmed Active Ex-smoker, quit 1993 Confirmed Active Old [place] (myocardial infarction) Confirmed 1997 Active Pad Confirmed Active PVD - Peripheral vascular disease Confirmed Active Right Lumbar stenosis Confirmed Active 1Angioplasty with RCA/Circumflex stent Diagnosis Diagnosis Type Effective Dates Health Status inical Service Informant Carotid stenosis Discharge Diagnosis 07/09/24 Vital Signs Most recent to oldest [Reference Range]: 1 2 Height 162 cm (07/09/24 9:58 AM) 162 cm (07/09/24 9:56 AM) Weight 77.11 kg (07/09/24 9:56 AM) Oxygen Saturation [94-100 %] 98 % (07/09/24 9:56 AM) Pulse Rate [55-90 bpm] 56 bpm (07/09/24 9:56 AM) Body Mass Index [18.5-24.99 kg/m2] 29.38 kg/m2 *H* (07/09/24 9:56 AM) Blood Pressure [90-138/55-84 mm Hg] 122/ 68mm Hg (07/09/24 9:58 AM) 118/62mm Hg (07/09/24 9:56 AM) Blood pressure sites Arm, left (07/09/24 9:58 AM) Arm, right (07/09/24 9:56 AM) Weight Obtained Via Patient/family state d (07/09/24 9:56 AM) Social History Social History Type Response Smoking Status Former smoker; Tobac co user in household: No; Other: pt states he quit smoking in 1994; entered on: 01/19/17 Sex Sex Representation Male (finding) Note * Arnulfo Rahman: PERFORM Event Display: Patient Education/Instruction Authored Date: [id number] Ambulatory Adult Visit Summary [facility] [address] [place] [address] Name: DAMON JOHNSON : 1940?? Visit: 07/09/2024 09:15?? Ambulatory Visit Instructions ?? Your Care Team Primary Care Provider Katty LINCOLN , Krissy Pérez? This Visit Provider Kaley Ingram NP Vitals Signs Pulse Rate: 56 bpm Height: 162 cm Systolic Blood Pressure: 122 mm Hg Weight: 77.11 kg Diastolic Blood Pressure: 68 mm Hg Body Mass Index:??29.38 kg/m2??High Oxygen Saturation: 98 % Body surface area: 1.86 What to do next Scheduled Follow-Up Appointments Tuesday 8:45 AM EDT ?? With: Zunilda LINCOLN, [facility] Where: [facility] [address] [place] [address]- Status: Pending Medications The list below reflects the information in our records and provided by you today along with any changes made during this visit. Please continue your medications until treatment is completed or stopped by your provider. If this is different from the information you have or there are other questions,please contact the prescribing provider. What How Much When Instructions Unchanged Amlodipine (amlodipine 5 mg oral tablet) 1 tab(s) Oral Daily Unchanged Ascorbic Acid (Vitamin C) Oral Daily Unchanged Aspirin (aspirin 81 mg oral tablet) 1 tab(s) Oral Daily Unchanged Atorvastatin (atorvastatin 40 mg oral tablet) 1 tab(s) Oral Daily at Bedtime Unchanged Cholecalciferol (Vitamin D3 1000 intl units oral tablet) 1 tab(s) Oral Daily Unchanged Epinephrine (EpiPen 2-Cornelius 0.3 mg injectable kit) Intramuscular Once Unchanged Finasteride (finasteride 5 mg oral tablet) Unchanged Lisinopril (lisinopril 20 mg oral tablet) 1 tab(s) Oral Daily Unchanged Metoprolol (metoprolol 100 mg oral tablet, extended release) 1 tab(s) Oral Daily Unchanged Tamsulosin (tamsulosin 0.4 mg oral capsule) TAKE ONE CAPSULE BY MOUTH AT BEDTIME ?? Medications and Immunizations Administered Medications Given During Visit No medications given during this visit.?? Allergies (NKA means No Known Allergies) Bee Stings Common Emergency Awareness Tips IS IT A STROKE? Act FAST and Check for these signs: FACE Does the face look uneven? ARM Does one arm drift down? SPEECH Does their speech sound strange? TIME Call at any sign of stroke ?? Heart Attack Signs Chest discomfort: Most heart attacks involve discomfort in the center of the chest and lasts more than a few minutes, or goes away and comes back. It can feel like uncomfortable pressure, squeezing, fullness or pain. Discomfort in upper body: Symptoms can include pain or discomfort in one or both arms, back, neck, jaw or stomach. Shortness of breath: With or without discomfort. Other signs: Breaking out in a cold sweat, nausea, or lightheaded. Remember, MINUTES DO MATTER. If you experience any of these heart attack warning signs, call to get immediate medical attention! ?? Smoking can increase your chances of developing chronic health problems and can cause harmful effects to other family members in your house. If you smoke, you are strongly encouraged to quit. Please call [employer] at [phone] or [phone]) or log in to [email or web address] for referrals to smoking cessation programs. ?? The National Suicide Prevention Hotline is available 11/10 if you or someone you know needs to find a reason to keep living. By calling 3-310-028-Jack Erwin (4404) you'll be connected to a skilled, trained counselor at a crisis center in your area. [facility] [employer] Portal You can view and manage your care through the patient portal or by using a health care harvinder of your choosing. [employer] is a website that allows you to securely view your medical information including your hospital discharge summary, office visit summaries, medications and follow-up visits. You can also request appointments, renew medications, and request access to your medical information using a health care harvinder of your choosing, or just ask a question. You can enroll at [email or web address] or register during your next office visit. [facility], in keeping with [facility] guidance, no longer requires face masks for staff, patientsor visitors in most situations. Similiar to time spent indoors at other locations, there is the chance that you were exposed to repiratory viruses during your time with us (such as flu or COVID-19). If you develop symptoms concerning for a viral respiratory infection, please seek testing (and treatment if indicated) from your medical provider or home test kit. ?? Disclaimer: The information provided is of a general nature and is intended to be used in conjunction with the recommendations and advice of your health care practitioner. Every effort has been made to ensure that the information provided is accurate and complete at the time it is provided to you however, as your needs change, or, as new information becomes available, different or additional instructions may be required. ?? If you have questions, please consult with your primary care provider or pharmacist, as appropriate. This information is not intended to serve as substitution for assessment and evaluation by a qualified health care provider. If you do not have a primary care provider, you may find a [facility] provider by calling [employer] at [phone]. Patient Care team information Care Team Personnel Name: Katty LINCOLN , Krissy Pérez Position: Reference Physician Member Role: PCP Address: [address] [place] [address]- [place] [employer]: Name: Shakir LINCOLN, Vasu Sosa Position: Reference Physician Member Role: Primary Care Nurse Address: [address] [facility] [address] [place] [address]- [place] [employer]: Name: Annabelle Sandoval RN Position: [facility] Office Staff Member Role: Primary Care Nurse Name: Catie Lowry RN Position: [facility] RN Member Role: Primary Care Nurse Care Team Related Persons Name: TOVA JAIMES Name: TOVA IRVING Insurance Providers Guarantor name: DAMON JOHNSON Health Plan Information #: 2 Payer: [employer] Member Number: [id number] Policy Number: NA Group Number: [id number] Health Plan Information #: 1 Payer: MEDICARE PART B OUTPT Member Number: [id number] Policy Number: NA Group Number: [id number]
[2024-07-19 11:05] LABS: Alanine Aminotransferase 16 U/L (0-40); Anion Gap 12 (12-20); Aspartate Amino Transferase 23 U/L (5-37); Blood Urea Nitrogen 22 mg/dL (9-16); Calcium 8.8 mg/dL (8.4-10.2); Carbon Dioxide 26 mmol/L (22-29); Chloride 107 mmol/L (96-108); Cholesterol 106 mg/dL (<200); Estimated Glomerular Filt Rate 57; Glucose Fasting 95 mg/dL (60-99); HDL Cholesterol 29 mg/dL (>40); LDL Cholesterol Calculated 59 mg/dL (<100); Potassium 4.5 mmol/L (3.3-5.1); Sodium 140 mmol/L (135-145); Triglycerides 93 mg/dL (<150)
[2024-07-19 11:06] LABS: Vitamin D 25-OH Total 31.9 ng/mL (>30)
== END 2024-07-19 08:08 | disposition home or self-care (01) ==
LOC: HO.HMGCLDS 08:07
PROVIDERS: PCP Internal Medicine; Visit Provider Internal Medicine
DX: I65.23 Occlusion and stenosis of bilateral carotid arteries (principal); I25.10 Atherosclerotic heart disease of native coronary artery without angina pectoris; I73.9 Peripheral vascular disease, unspecified; I10 Essential (primary) hypertension; K80.20 Calculus of gallbladder without cholecystitis without obstruction; N18.2 Chronic kidney disease, stage 2 (mild); E78.5 Hyperlipidemia, unspecified
CPT/HCPCS: 36415; 80048; 80061; 82306; 84450; 84460

== ENCOUNTER 2024-07-22 09:21 | Emergency (ER) | payer MEDICARE, BC, SELFPAY ==
--- NOTE | 2024-07-22 | ECG_ITS ---
Test Reason : WEAKNESS Blood Pressure : */* mmHG Vent. Rate : 56 BPM Atrial Rate : 56 BPM P-R Int : 174 ms QRS Dur : 86 ms QT Int : 416 ms P-R-T Axes : 30 13 49 degrees QTcB Int : 401 ms Sinus bradycardia Possible Anterior infarct (cited on or before 04-Jun-2022) Abnormal ECG When compared with ECG of 04-Jun-2022 12:24, No significant change was found Referred By: Generic ED Physician Electronically Signed By: ARMIN CARMONA
--- NOTE | ~2024-07-22 | XR_ITS ---
CLINICAL HISTORY: fatigue 2 view chest x-ray Comparison: CR/SR - XR CHEST 2V - 02/05/23 08:37 EST Findings: 3.6 cm masslike opacity within the left upper lobe. Vague 12 mm nodular focus within the right mid lung. Possible trace left pleural effusion. Heart size is normal. No acute fracture. IMPRESSION: 1. 3.6 cm masslike opacity within the left upper lobe. Vague nodular focus within the right mid lung. Recommend CT evaluation. 2. Possible trace left pleural effusion. This document has been electronically signed by: Cindy Gutierrez MD on 07/22/2024 13:46:31
--- NOTE | ~2024-07-22 | CT_ITS ---
CLINICAL HISTORY: left upper lobe mass CT chest with contrast Comparison: CR - XR CHEST 2V - 07/22/24 12:18 EDT Findings: Normal heart size. Moderate coronary artery calcification. There are also calcifications present in association with the aortic valve. The visualized thyroid and mediastinum are unremarkable. 3.5 x 3.0 x 2.9 cm left upper lobe mass contacting the lateral pleural surface. Heterogeneous mildly spiculated appearance with large area of central low-density. Additional 1.3 cm nodule within the inferolateral aspect of the right upper lobe (4, 79). Small area of adjacent ground-glass opacity. Mild bilateral apical scarring. There are small gallstones within the gallbladder. There is moderately severe atrophy of the left kidney. There are multiple small kidney cysts. There are multiple ventral hernias containing fat. The bones are intact. 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 Additional 1.3 cm right upper lobe nodule may potentially represent an additional neoplasm. These could be further evaluated by biopsy or PET scan. This document has been electronically signed by: Cindy Gutierrez MD on 07/22/2024 15:40:03
[2024-07-22 09:25] VITALS: BP 143/38; PULSE 59; RESP 16; TEMP 37; O2SAT 97; BMI 29.8
[2024-07-22 09:47] LABS: MANUAL DIFF FLAG NO
[2024-07-22 09:49] LABS: Basophils Percent Auto 0.2 % (0-2); Eosinophils Absolute Auto 0.1 X10*3/uL (0.0-0.4); Eosinophils Percent Auto 1.4 % (0-4); Hematocrit 38.1 % (42.0-52.0); Hemoglobin 13.4 g/dl (14.0-18.0); Imm Gran Abs Auto 0.03 X10*3/uL (0.00-0.03); Imm Gran Pct Auto 0.3 % (0.0-0.4); Lymphocytes Absolute Auto 2.7 X10*3/uL (1.2-4.9); Lymphocytes Percent Auto 26.5 % (20-40); Mean Corpuscular HGB Conc 35.2 g/dl (31.0-36.0); Mean Corpuscular Hemoglobin 32.4 pg (27.0-33.0); Mean Corpuscular Volume 92.3 fL (80.0-98.0); Mean Platelet Volume 9.3 fL (9.4-12.4); Monocytes Absolute Auto 1.2 X10*3/uL (0.1-1.2); Monocytes Percent Auto 11.8 % (2-11); Neutrophils Absolute Auto 6.1 x10*3/uL (2.0-8.3); Neutrophils Percent Auto 59.8 % (45-73); Platelet Count 300 X10*3/uL (160-400); Red Blood Count 4.13 X10*6/uL (4.60-5.80); Red Cell Distribution Width 12.1 % (11.0-16.0); White Blood Count 10.2 X10*3/uL (4.8-10.8)
[2024-07-22 10:09] LABS: B Type Natriuretic Peptide 157 pg/mL (<100)
[2024-07-22 10:15] LABS: Alanine Aminotransferase 16 U/L (0-40); Albumin Level 3.2 g/dL (3.5-5.0); Alkaline Phosphatase 62 U/L (39-117); Anion Gap 14 (12-20); Aspartate Amino Transferase 24 U/L (5-37); Blood Urea Nitrogen 22 mg/dL (9-16); Calcium 8.8 mg/dL (8.4-10.2); Carbon Dioxide 22 mmol/L (22-29); Chloride 109 mmol/L (96-108); Creatinine Clr Calc Pharmacy 44.5; Estimated Glomerular Filt Rate 58; Glucose Random 105 mg/dL (60-115); Potassium 4.8 mmol/L (3.3-5.1); Sodium 140 mmol/L (135-145)
[2024-07-22 10:40] LABS: Influenza A PCR NEGATIVE (Negative); Influenza B PCR NEGATIVE (Negative); Resp Syncy Virus RNA Qual PCR NEGATIVE (Negative); SARS COV2 PCR INHOUSE NEGATIVE (Negative)
[2024-07-22 11:36] VITALS: BP 142/59; PULSE 53; RESP 17; O2SAT 97
--- NOTE | 2024-07-22 11:38 | ED_ITS ---
HPI - General Adult General Chief complaint: Weakness Stated complaint: weakness and leg swelling Time Seen by Provider: 07/22/24 11:38 History of Present Illness ED Provider: Anika GOMES narrative: The patient is an 83-year-old male with a history of peripheral vascular disease and coronary disease. He has a coronary stent and he has had what I believe was a bilateral fem-pop bypass. These were several years ago. The patient says that he comes to the emergency room today because of symptoms that he feels has been worsening over the last couple of months. He has worsening peripheral edema and he also has worsening fatigue. He says that his ankle swell if he is up and about for any amount of time. They improve if he lays down. He also feels that he feels much sleepier than usual and is having to take naps because he feels so sleepy during the day. He lives alone in his own apartment. He says that he eats very little. He says that he saw his PCP about his ankle swelling in the last few weeks and was advised to use compression stockings. He does not think he is on a diuretic. He is concerned that he seems to get so fatigued so easily and he also feels that his feet are very cold. He has had no headache, no chest pain, no pleuritic pain, no shortness of breath, no nausea or vomiting, no fever, sweats, chills. Related Data Home Medications ?Medication ?Instructions ?Recorded ?Confirmed ntmkrogm-tx-potst 300 mcg-K 60 1 tab PO DAILY 06/17/21 07/14/23 mcg-lycop 600 mcg-lutein 300 mcg tablet (Centrum Silver Men) cholecalciferol (vitamin D3) 125 125 mcg PO DAILY 12/22/22 07/14/23 mcg (5,000 unit) capsule finasteride 5 mg tablet 5 mg PO DAILY 07/14/23 07/14/23 Previous Rx's ?Medication ?Instructions ?Recorded blood pressure monitor #1 ea 02/26/20 docusate sodium 100 mg capsule 100 mg PO DAILY PRN constipation 11/13/23 (Colace) #90 caps tamsulosin 0.4 mg capsule 0.4 mg PO BEDTIME #90 caps 06/18/24 amlodipine 5 mg tablet 5 mg PO DAILY #90 tabs 06/26/24 aspirin 81 mg tablet,delayed 81 mg PO DAILY #90 tabs 06/26/24 release (Adult Low Dose Aspirin) atorvastatin 40 mg tablet 40 mg PO DAILY #90 tabs 06/26/24 metoprolol succinate 100 mg 100 mg PO DAILY #90 tabs 06/26/24 tablet,extended release 24 hr lisinopril 20 mg tablet 20 mg PO DAILY #90 tabs 07/13/24 Allergies Allergy/AdvReac Type Severity Reaction Status Date / Time No Known Allergies Allergy Verified 07/22/24 09:31 [No Known Allergies*] Review of Systems 2 Review of Systems: Yes all other systems are reviewed and are negative [facility] Past Medical History Medical History Bilateral carotid artery stenosis Sinus bradycardia Gallstone CKD (chronic kidney disease) stage 2, GFR 60-89 ml/min Diverticulosis History of DVT of lower extremity Former smoker, stopped smoking in distant past Hx of myocardial infarction CAD (coronary artery disease) Hyperkalemia Benign prostatic hyperplasia PVD (peripheral vascular disease) Essential hypertension Dyslipidemia Surgical History Status post insertion of iliac artery stent Family History Family History Father Heart problem Substance use disorder Mother Heart problem Social History Social History Housing: Apartment Alcohol intake: current Alcohol intake frequency: 0-2 drinks per day Alcohol type: wine Patient Tobacco Use Status: Former Tobacco user Smoked in Last 30 Days: No e-Cigarette/Vaping Use: Never Used Use of substances other than those prescribed or required for medical reasons: No Advance Directives: No Advance Directives Information Provided: Yes service: No Current occupational status: retired Cognitive needs: No Hearing needs: No Vision needs: Yes Physical Exam ED Vital Signs: Vital Signs - 24 hr 07/22/24 09:25 07/22/24 11:36 07/22/24 12:46 Temperature 98.6 F 97.6 F Pulse Rate 59 53 53 Respiratory Rate 16 17 14 Blood Pressure 143/38 H 142/59 H 133/53 L Pulse Oximetry 97 97 99 Oxygen Delivery Method Room Air Room Air Room Air 07/22/24 15:21 Temperature Pulse Rate 56 Respiratory Rate 14 Blood Pressure 126/43 L Pulse Oximetry 98 Oxygen Delivery Method Room Air BMI result Body Mass Index 29.8 Const Other: The patient is awake and alert with a normal mental status. It looks like a somewhat chronically ill 83-year-old. He does not seem in distress or obviously acutely ill. HENMT Other: Face is symmetrical, mucous membranes moist Eyes General: appearance normal, both eyes and all related structures Neck Neck: Yes normal visual inspection, Yes full ROM and Yes no JVD Resp Other: No crackles appreciated Effort & Inspection: normal respiratory effort Auscultation: clear to auscultation bilaterally Cardio Other: No murmur heard Rate: regular rate Rhythm: regular rhythm Heart sounds: S1 normal heart sound present and S2 normal heart sound present GI Other: The abdomen is soft and nontender Skin Other: The patient has bilateral and symmetrical lower extremity pitting edema. Skin is pale and dry otherwise. Neuro Other: The patient is awake and alert with a normal mental status. Cranial nerves are intact. There was no eyelid drooping. Voice is normal. He moves his extremities normally. No focal finding Extrem Other: The patient has soft pitting edema at both ankles. Feet feel well-perfused with good dorsalis pedis pulses bilaterally. Medications Administered Discontinued Medications Generic Name Dose Route Start Last Admin Trade Name Freq PRN Reason Stop Dose Admin Iohexol 100 ml 07/22/24 14:01 07/22/24 14:01 Iohexol 350 Mg/Ml 100 Ml Infus..Btl IV 07/22/24 14:02 65 ml ONCE ONE Administration Medical Decision Making Medical Decision Making [facility] Narrative: The patient is an 83-year-old male who presents with a few weeks of worsening bilateral lower extremity edema. He also has had a complaint of profound fatigue over the last several weeks. The patient's workup in the emergency room was significant mostly for an obvious mass on his chest x-ray in the left upper lobe. This was followed by a CT scan of the chest which shows a 3.5 cm mass suspicious for a neoplasm. There is also a possible additional 1.3 cm nodule in the right upper lobe. The patient has an EKG that shows sinus bradycardia, otherwise unremarkable. Labs show a white count of 10.2, hemoglobin 13.4, platelet count 300, differential unremarkable Metabolic panel shows a very mild decrease of his renal function. LFTs are unremarkable. On exam the patient's only significant finding is soft pitting edema of the the ankles. 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 He is a former smoker. He quit smoking 3 years ago. He says that he has an outpatient appointment with his primary care doctor in 3 days on Tuesday. He should keep this appointment. He is also given the contact information for the [facility] [place] and should call them tomorrow for a prompt appointment as well. Lab Data 07/22/24 09:42 07/22/24 09:41 Labs: Lab Results 07/22/24 07/22/24 Range/Units 09:41 09:42 WBC 10.2 (4.8-10.8) X10*3/uL RBC 4.13 L (4.60-5.80) X10*6/uL Hgb 13.4 L (14.0-18.0) g/dl Hct 38.1 L (42.0-52.0) % MCV 92.3 (80.0-98.0) fL MCH 32.4 (27.0-33.0) pg MCHC 35.2 (31.0-36.0) g/dl RDW 12.1 (11.0-16.0) % Plt Count 300 D (160-400) X10*3/uL MPV 9.3 L (9.4-12.4) fL Immature Gran % (Auto) 0.3 (0.0-0.4) % Neut % (Auto) 59.8 (45-73) % Lymph % (Auto) 26.5 (20-40) % [place] % (Auto) 11.8 H (2-11) % Eos % (Auto) 1.4 (0-4) % Baso % (Auto) 0.2 (0-2) % Lymph # (Auto) 2.7 (1.2-4.9) X10*3/uL [place] # (Auto) 1.2 (0.1-1.2) X10*3/uL Eos # (Auto) 0.1 (0.0-0.4) X10*3/uL Baso # (Auto) 0.0 (0.0-0.2) X10*3/uL Abs Immat Gran (auto) 0.03 (0.00-0.03) X10*3/uL Absolute Neuts (auto) 6.1 (2.0-8.3) x10*3/uL Absolute Nucleated RBC 0.000 (0.0-0.012) X10*3/uL Nucleated RBC % (auto) 0.0 (0.0-0.2) /100WBC ESR 25 H (0-15) MM/HR Sodium 140 (135-145) mmol/L Potassium 4.8 (3.3-5.1) mmol/L Chloride 109 H (96-108) mmol/L Carbon Dioxide 22 (22-29) mmol/L Anion Gap 14 (12-20) BUN 22 H (9-16) mg/dL Creatinine 1.19 (0.5-1.4) mg/dL Estim Creat Clear Calc 44.5 Estimated GFR 58 Random Glucose 105 (60-115) mg/dL Calcium 8.8 (8.4-10.2) mg/dL Total Bilirubin 1.0 (0.0-1.0) mg/dL AST 24 (5-37) U/L ALT 16 (0-40) U/L Alkaline Phosphatase 62 (39-117) U/L Troponin I High Sens 6.0 (<3.5-35.0) ng/L C-Reactive Protein 7.73 H (< or = 0.50) mg/dL B-Natriuretic Peptide 157 H (<100) pg/mL Total Protein 6.0 L (6.5-8.0) g/dL Albumin 3.2 L (3.5-5.0) g/dL TSH 2.85 (0.32-4.0) uIU/mL Influenza Type A (PCR) NEGATIVE (Negative) Influenza Type B (PCR) NEGATIVE (Negative) RSV RNA Qual (PCR) NEGATIVE (Negative) SARS-CoV-2 RNA (RT-PCR) NEGATIVE (Negative) Independent Interpretation I performed an independent interpretation of an: EKG Interpretation: EKG at 05/21/2008 shows sinus bradycardia at 56 beats per minute. No definite acute ischemic changes. No change from previous. Discharge Plan Discharge Clinical Impression: Mass of upper lobe of left lung, Bilateral leg edema Patient Disposition: Home, Self-Care Additional Instructions: Your testing today shows that you have a tumor in your left upper lung. Please call the oncology/hematology office tomorrow morning to make a follow up appointment soon for further evaluation of this problem. Also please keep your appointment with your primary care doctor on Tuesday. Please use the compression stockings that you have during the daytime. You may remove them at night. Return to the emergency room if you feel significantly worse. Prescriptions: No Action (DME) blood pressure monitor Kit See Rx Instructions .ROUTE .MEDSUPPLY Qty: 1 0RF Rx Instructions: Check blood pressure as directed docusate sodium [Colace] 100 mg capsule 100 mg PO DAILY PRN (Reason: constipation) Qty: 90 1RF tamsulosin 0.4 mg capsule 0.4 mg PO BEDTIME Qty: 90 1RF amlodipine 5 mg tablet 5 mg PO DAILY Qty: 90 1RF aspirin [Adult Low Dose Aspirin] 81 mg tablet,delayed release (DR/EC) 81 mg PO DAILY Qty: 90 1RF metoprolol succinate 100 mg tablet extended release 24 hr 100 mg PO DAILY Qty: 90 1RF atorvastatin 40 mg tablet 40 mg PO DAILY Qty: 90 1RF lisinopril 20 mg tablet 20 mg PO DAILY Qty: 90 3RF Centrum Silver Men 300-600-300 mcg tablet 1 tab PO DAILY finasteride 5 mg tablet 5 mg PO DAILY cholecalciferol (vitamin D3) 125 mcg (5,000 unit) capsule 125 mcg PO DAILY Ref[place] [facility] [place]ology [Provider Group] (New left lung tumor) Print Language: Burkinan
--- OUTSIDE RECORDS SUMMARY | 2024-07-22 11:54 | XMS_ITS | Data Portability ---
Author Organization [place] - [facility], Allergy Address [address] [address] Care Team Providers Care Orthopedics Pediatric Physician Name Role Phone FRANCISCO EDGAR Primary Care [...] and follow-up after for repeat hearing test. [email or web address] Not available 10/21/2023 10:24:24 11/24/2023 11/24/2023 Informed [...] were discussed. We discussed the risk of penitentiary perforation following tube extrusion, with possible need [...] Orders ofloxacin 0.3 % ear drops 2023 [facility], [address] [facility], [place], [address], 11/24/2023 11:03:21 Patient TargetsNo targets recorded. Patient InstructionsNo instructions recorded. Reason for Referral None Reported. Results Created Date Observation Date Name Description Value Unit Range Abnormal Flag Note LastModifiedBy Organization Detail LastModifiedTime 10/21/19 audio gram No observ ation record ed. [email or web address] Not Available 04/2023 13:25:24 11/09/19 24 05/23/2019 [...] audio gram No observ ation record ed. [email or web address] Not Available 12/19 12:12:11 Result Notes None recorded. 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 41268493585 100 Active 2022 Sensorine ural hearing loss, unilatera l, right ear, with restricte d hearing on the contralat eral side; Note: Date Diagnosed : 3 10:57 AM (H90.A21) Not Available [facility] 4 03:06:09 Disorder of right Eustachia n tube 13524613890 22196 Active 2018 Other specified disorders of Eustachia n tube, right ear; Note: Date Diagnosed : 09/06/2018 10:33 AM (H69.81) Not Available [facility] 4 03:06:10 Mixed conductiv e and sensorine ural hearing loss of left ear 88297091235 107 Active 2022 Mixed conductiv e and sensorine ural hearing loss, unilatera l, left ear with restricte d hearing on the contralat eral side; Note: Date Diagnosed : 3 10:57 AM (H90.A32) Not Available [facility] 4 03:06:09 Tinnitus of right ear 58422178585 08 Active 2018 Tinnitus, right ear; Note: Date Diagnosed : 09/06/2018 10:33 AM (H93.11) Not Available [facility] 4 03:06:09 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 76644335588 109 Active 2018 Sensorine ural hearing loss, unilatera l, left ear, with restricte d hearing on the contralat eral side; Note: Date Diagnosed : 09/06/2018 10:33 AM (H90.A22) Not Available [facility] 4 03:06:09 Mixed conductiv e and sensorine ural hearing loss, bilateral 472742747 Active 2019 Mixed conductiv e and sensorine ural hearing loss, bilateral ; Note: Date Diagnosed : 05/23/2019 11:38 AM (H90.6) Not Available [facility] 4 03:06:11 Mixed conductiv e and sensorine ural hearing loss of right ear 40251857443 105 Active 2018 Mixed conductiv e and sensorine ural hearing loss, unilatera l, right ear with restricte d hearing on the contralat eral side; Note: Date Diagnosed : 09/06/2018 10:33 AM (H90.A31) Not Available [facility] 4 03:06:11 Bilateral disorder of Eustachia n tubes 90547916675 53766 Active 2019 Other specified disorders of Eustachia n tube, bilateral ; Note: Date Diagnosed : 04/11/2019 10:17 AM (H69.83) Not Available Critical access hospital 4 03:06:09 Chronic serous otitis media of right ear 286985416 Active 2023 ALEE HESS MD [address] [place] [address], [facility] [place], [address] , [facility] - [facility] 4 09:05:26 Sensorine ural hearing loss of bilateral ears 753355649 Active 2023 NOAH CARVAJAL [address] [facility], [place], [address] , [place] - [facility] 4 13:45:48 Problem Notes None recorded. Procedures Surgical History Date Name Laterality Status Provider Name and Address Organization Details Recorded Time 4 Air & Speech Audio with Tymps - 97158, 75192 & 19223 completed ISSAC PALACIO, AUD [address] [facility],[place] [address], [place], [address], [place] - [facility] 12/28/2023 13:45:03 4 Myringotomy w/Placement of Tube right completed ALEE HESS MD [address] [facility],[place] [address], [place], [address], [facility] - [facility] 11/22/2023 10:11:03 4 Comp Audio with Tymps - 15034 & 10026 completed DOM JEFFERSON, [facility] [address] [facility],[place] [address], [place], [address], [facility] - [facility] 10/21/2023 09:56:25 Imaging Results Imaging Date Name Status LastModified by Organiz ation Details LastModified Time 10/21/2023 audiogram completed [email or web address] Information n ot available 10/21/2023 13:25:24 05/23/2019 [...] not available 11/09/2023 02:02:47 12/29/2023 audiogram completed Information n ot available 12/29/2023 12:12:11 Procedure Notes None recorded. Medical Equipment None Reported. Medications Name Sig Start Date Stop Date Status Note LastModified by Organization Details LastModified Time atorvastat in 40 mg tablet TAKE 1 TABLET BY MOUTH DAILY. active Not Available Not Available No t Available cetirizine 10 mg tablet 2018 active Medicatio n ID: [id number] Du ration Value: 30 Brand Name: cetirizin [...] both nostrils 2019 active Medicatio n ID: [id number] Du ration Value: 30 Prescrib ed By [...] Century Vitamin 2018 active Medicatio n ID: [id number] Br and Name: century vitamin S end Method: E-Prescri bed Subs Allowed: subs OK Medica tionGener icName: century vitamin Not Available Not Available Not Available June-estelita 8.6 mg tablet 2020 active Medicatio n ID: [id number] Br and Name: June-estelita Send Method: E-Prescri bed Subs Allowed: subs OK Specia l Instructi on: TAKE ONE TABLET BY MOUTH AT BEDTIME NEEDED FOR CONTIPATI ON Medica tionGener icName: June-estelita Not Available Not Available Not Available Vitals Date Recorded Body height Body mass index (BMI) Body weight Provider Name and Address Organization Details Last Updated DateTime 10/21/2023 162.56 cm 29.2 kg/m2 11459.7 g Cam Rockwell [place] [facility] 10/21/2023 09:13:10 Date Recorded Body height Body mass index (BMI) Body weight Provider Name and Address Organization Details Last Updated DateTime 11/24/2023 162.56 cm 29.2 kg/m2 87404.7 g Shyanne Sadler [place] [facility] 11/24/2023 10:30:47 Date Recorded Body height Body mass index (BMI) Body weight Provider Name and Address Organization Details Last Updated DateTime 12/28/2023 162.56 cm 28.7 kg/m2 94614.93 g Shyanne Sadler [facility] 12/28/2023 14:07:51 Social History None recorded. Functional Status None recorded. Mental Status None recorded. Family History Nothing Reported. Medical History No medical history recorded. Past Encounters Encounter ID Performer Location Encounter Start Date Encounter Closed Date Diagnosis/Indication Diagnosis SNOMED-CT Code Diagnosis ICD10 Code Diagnosis Note [id number] PA-C [facility] [address] [address] 10/21/2023 08:46:53 10/21/2023 10:12:46 Bilateral chronic serous otitis 864146879 H65.23 Bilateral disorder of Eustachian tubes 1643993732 248701 H69.83 [id number] NOAH ROSEN [facility] [address] [address] 10/21/2023 09:56:05 10/25/2023 07:12:55 Mixed conductive and sensorineural hearing loss of right ear 0791379054 9105 H90.A31 Sensorineu ral hearing loss in left ear 2225515248 9109 H90.A22 Audiologic al evaluation results: Right [...] Cou ld not maintain a hermetic seal}} [id number] ALEE HESS MD [facility] [address] [address] 11/24/2023 10:23:04 11/24/2023 11:04:34 Chronic serous otitis media of right ear 584252948 H65.21 ALEE HESS MD [facility] [address] [place] [address] 12/28/2023 13:20:30 12/28/2023 14:23:26 Chronic serous otitis media of right ear 045279321 H65.21 NOAH CARVAJAL [facility] [address] [place] [address] 12/28/2023 13:44:26 12/29/2023 07:28:34 Sensorineural hearing loss of bilateral ears 956118425 H90.3 Audiologic al evaluation results:Ri ght ear:{{Norm [...] ID Guarantor Name 10/21/2023 1 [place] [employer] Lobito Cast [id number] Lobito Cast 10/21/2023 2 [place] [employer] [employer] 104 Lobito Perryult [id number] Lobito Novak [place] 10/21/2023 1 [place] [employer] Lobito Novak [place] [id number] Lobito Novak [place] 10/21/2023 2 [place] [employer] [employer] 104 Lobito Novak [place] [id number] Lobito Novak [place] 11/24/2023 1 MEDICARE B-[place]: [facility] G[facility] SERVICES Lobito Novak [place] [id number] Lobito Novak [place] 11/24/2023 2 [place] [employer] 104 Lobito Novak [place] [id number] Lobito Novak [place] 12/28/2023 1 [place] [facility] Lobito Novak [place] [id number] Lobito Novak [place] 12/28/2023 2 [place] [employer] [place] 104 Lobito Novak [place] [id number] Lobito Novak [place] 12/28/2023 1 [place] [facility] Lobito Novak [place] [id number] Lobito Novak [place] 12/28/2023 2 [place] [employer] [place] 104 Lobito Novak [place] [id number] Lobito [place] Notes Date Note Type Note Provider Name and Address Organization Details Recorded Time 10/21/2023 text/html 82-year-old male with history of recurrent effusion of the right ear presents for reevaluation. Had RMT in office about a year ago but feels his tube has come out. Cannot hear much out of the right side. ALEE HESS MD [address] [place] [address], [address], [facility] - [facility] 10/21/2023 17:28:10 11/24/2023 text/html prev hx of right [place] with Dr Moss12/31/22 - Right myringotomy tube, Ploskyhad nasopharynx exam 06/2020 - benignnow tube is out and he feels hearing is worse on right. left side is OK PV 10/21/23: Aminta noted right serous effusion retired from [employer]. very well travelled ALEE HESS MD [address] [facility],[place] [address], [place], [address], [place] - [facility] [place] 11/24/2023 11:04:07 12/28/2023 text/html tube checkfeels hearing is improved PV 11/24/23 Plosky: placement myringotomy tubeprev hx of right [place] with Dr Moss12/31/22 - Right myringotomy tube, Ploskyhad nasopharynx exam 06/2020 - benign retired from [employer]. very well travelled ALEE HESS MD [address] [facility],[place] [address], [place], [address], [facility] - [facility] [place] 12/28/2023 14:23:11
--- OUTSIDE RECORDS SUMMARY | 2024-07-22 11:54 | XMS_ITS | Continuity of Care Document ---
Demographics Address [address] [place] [address] Home Phone Preferred Language en Marital Status Unknown Uatsdin Affiliation Unknown Race Unknown Ethnic Group Unknown Author Name [facility] Organization [facility] Care Team Providers Care Card Filer Name Role Phone [facility] Unavailable Unavailable Problems Combined list of problems from Department of [facility] and [facility] facilities. It does not include entries that were removed or entered in error. Problem Status Onset Date Problem Type Date of Resolution Comments Source Visual impairment Active 4 Condition August 03, 2023 Entered By: DIANNE BOCANEGRA Comment: wears eyeglasses [facility] [place] [facility] Impacted wax Active 3 Condition August 03, 2022 Entered By: DIANNE BOCANEGRA Comment: treated with irrigation [facility] [place] COR ATHEROSCL UNSP TYP-VES Active Condition [facility] [place] [facility] HYPERTENSION NOS Active Condition [facility] [place] [facility] Diagnosis: ICD-10-CM Z46.0 Encounter for fit/adjst of spectacles and contact lenses Active Diagnosis [facility] [place] [facility] Diagnosis: ICD-10-CM 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, hole, or pseudohole, right eye Active Diagnosis [facility] [place] Diagnosis: ICD-10-CM H53.30 Unspecified [...] BY MOUTH ORAL ACTIVE JODI VOSS 2020 [facility] ASPIRIN 81MG TAB,EC TAKE ONE TABLET BY MOUTH ORAL ACTIVE JODI VOSS 2020 [facility] ATORVASTATI N CA 80MG TAB TAKE ONE TABLET BY MOUTH AT BEDTIME ORAL ACTIVE MAYNOR BOCANEGRA 2023 [facility] LISINOPRIL TAB TAKE BY MOUTH ORAL ACTIVE SHANIKAJODI J 2020 [facility] METOPROLOL SUCCINATE TAB,SA TAKE BY MOUTH ORAL ACTIVE OSHICASSIDYJODI J 2020 [facility] TAMSULOSIN (1ST LINE ALPHA SUE) CAP,ORAL TAKE BY MOUTH ORAL ACTIVE OSHINSLUISAJODI J 2020 [facility] Immunizations Combined list of available immunizations from the Department of Defense and Veterans Affairs facilities. 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 Status Comments Source INFLUENZA, UNSPECIFIED FORMULATION 2022 88 complet ed Booster for Series, HISTORICA L INFORMATI ON - FROM OTHER PROVIDER[facility] INFLUENZA, UNSPECIFIED FORMULATION 2021 88 complet ed HISTORICA L INFORMATI ON - SOURCE UNSPECIFI ED, [facility] COVID-19 (MODERNA), MRNA, LNP-S, PF, 100 MCG/0.5 ML DOSE 2 2020 207 complet ed MOD; [id number]; 1 [facility] COVID-19 (MODERNA), MRNA, LNP-S, PF, 100 MCG/0.5 ML DOSE 1 2020 207 complet ed MOD; [id number]; 1 [facility],3 YRS (HISTORICAL) 2001 [...] to the last 18 months, not all [place] inpatient encounters are included; 2) Encounters from the Department of Defense facilities going backup to 280 months. Location Location Details Encounter Type Encounter Number Reason For Visit Attending Provider ADM Date DC Date Status Disposition Source [facility] Outpatient Encounter [id number] 05/17 [facility] OFFICE O/P EST LOW 20 MIN [id number] Diagnos is: ICD-10- CM H53.30 Unspeci fied disorde r of binocul ar vision LUIZ BOCANEGRA RD D 08/02 [facility] COMPRE OPH EXAM EST PT 1/> [id number] Diagnos is: ICD-10- CM 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, hole, or pseudoh ole, right eye MERHAR,ANGELLA H B 12/13 [facility] CPTR OPHTH DX IMG POST SEGMT [id number] Diagnos is: ICD-10- CM 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 Social History Type Response Date Comment Sour e Tobacco smoking status NHIS [place]-TOBACCO FORMER USER 08/03/2023 [facility] [place] [facility] of [facility] 08[facility]2023 [facility] [place] [facility] History of tobacco use [place]-TOBACCO FORMER USER 08/03/2022 [facility] [place] [facility] History of tobacco use HISTORY OF SMOKING 07/05/2001 x 10yrs [facility] Plan of Care List of future care activities from Department of Veterans Affairs facilities. Additional future care activities may be listed in the Assessment and Plan section. Date/Time Care Activity Care Activity Detail Facili ty 08/01/2024 AMBULATORY - MEDICINE AMBULATORY - MEDICI [place] [facility] [place] [facility]
--- OUTSIDE RECORDS SUMMARY | 2024-07-22 11:54 | XMS_ITS | Data Portability ---
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 Procedures Surgical History Date Name Laterality Status Provider Name and Address Organization Details Recorded Time 5 JZShoulder INJ completed Trevor Pierce PA-C [address], [place], [address], [facility] 04/04/2024 13:40:34 4 JZShoulder INJ completed Trevor Pierce PA-C [address], [place], [address], [facility] 11/11/2023 10:36:06 Imaging Results [...] Updated DateTime 11/11/2023 162.56 cm 29.4 kg/m2 36016.3 g Casey Angel Stubbs N ew [facility] 11/11/2023 10:32:40 Date Recorded Body height Body mass index (BMI) Body weight Provider Name and Address Organization Details Last Updated DateTime 04/04/2024 162.56 cm 29.4 kg/m2 58550.3 g Casey Angel [facility]BI[facility] - [facility] 04/04/2024 13:31:10 Social History None recorded. Functional Status None recorded. Mental Status None recorded. Family History Nothing Reported. Medical History No medical history recorded. Past Encounters Encounter ID Performer Location Encounter Start Date Encounter Closed Date Diagnosis/Indication Diagnosis SNOMED-CT Code Diagnosis ICD10 Code Diagnosis Note [id number] [facility] [address] [place] [address] 11/11/2023 10:28:02 12/08/2023 15:04:20 Impingement syndrome of left shoulder region 7687941123 50356 M75.42 [id number] [facility] Evelyne Osuna [address] [place] [address] 04/04/2024 13:22:11 04/16/2024 09:16:25 Impingement syndrome of left shoulder region 9107345190 96162 M75.42 Health Concerns Section Related Observation LastModified by Organization Detai ls LastModified Time None Recorded Concern Status LastModified by Organization Details LastModified Time None Recorded Advance Directives Directive None Recorded Payers Encounter Date Sequence Insurance Name Policy Number Policy Duque Covered Member ID Duque Member ID Guarantor Name 11/11/2023 2 [place] 104 Lob[place] B [place] [id number] Lobito B [place] 11/11/2023 1 [place] [employer] [place] Lobito B [place] [id number] Lobito B [place] 04/04/2024 2 [place] 104 Lobito B [place] [id number] Lobito B [place] 04/04/2024 1 [place] Lobito B [place] [id number] Lobito B [place]
[2024-07-22 12:44] LABS: Erythrocyte Sedimentation Rate 25 MM/HR (0-15)
[2024-07-22 12:46] VITALS: BP 133/53; PULSE 53; RESP 14; TEMP 36.4; O2SAT 99
[2024-07-22 13:39] LABS: C Reactive Protein 7.73 mg/dL (< or = 0.50)
[2024-07-22 13:51] LABS: Thyroid Stimulating Hormone 2.85 uIU/mL (0.32-4.0)
[2024-07-22] MEDS: iohexoL 350 MG/ML 100 ML INFUS..BTL IV (14:01)
[2024-07-22 15:21] VITALS: BP 126/43; PULSE 56; RESP 14; O2SAT 98
[2024-07-22 16:48] VITALS: BP 126/43; PULSE 56; RESP 14; TEMP 37.1; O2SAT 98
== END 2024-07-22 16:48 | disposition home or self-care (01) ==
PROVIDERS: Emergency Provider Emergency Medicine; PCP Internal Medicine
DX: R91.8 Other nonspecific abnormal finding of lung field (principal); R00.1 Bradycardia, unspecified; R53.1 Weakness; R60.0 Localized edema; I25.10 Atherosclerotic heart disease of native coronary artery without angina pectoris; Z79.899 Other long term (current) drug therapy; Z87.891 Personal history of nicotine dependence; Z03.818 Encounter for observation for suspected exposure to other biological agents ruled out
CPT/HCPCS: 0241U; 71046; 71260; 80053; 83880; 84443; 84484; 85025; 85652; 86140; 93005; 99284; 99285; Q9967

== ENCOUNTER → 2024-07-22 09:33 | Outpatient (BNV) | payer MEDICARE, BC, SELFPAY | PROVIDERS: Emergency Provider Emergency Medicine; PCP Internal Medicine; Visit Provider Internal Medicine | DX: R00.1 Bradycardia, unspecified (principal); R53.1 Weakness; R94.31 Abnormal electrocardiogram [ECG] [EKG] | CPT/HCPCS: 93010 ==

== ENCOUNTER → 2024-07-22 11:54 | Outpatient (BNV) | payer MEDICARE, BC, SELFPAY | PROVIDERS: Emergency Provider Emergency Medicine; PCP Internal Medicine; Visit Provider Radiology Diagnostic Radiology | DX: R91.8 Other nonspecific abnormal finding of lung field (principal); R53.83 Other fatigue | CPT/HCPCS: 71046; 71260 ==

== ENCOUNTER 2024-07-25 10:36 | Outpatient (AMB) | payer MEDICARE, BC, SELFPAY ==
--- NOTE | 2024-07-25 11:21 | A.OFFPC_ITS ---
Vital Signs 07/25/24 11:31 Height 5 ft 4 in Weight 175 lb BMI 30.0 BP 116/50 L Blood Pressure Location Rt brachial Position Sitting Respiration 16 Pulse 57 Pulse Source Pulse Oximeter Temp 97.7 F Temp Source Oral Pulse Oximetry (%) 96 Oxygen Delivery Method Room Air Intake Visit Reasons: Annual PE Intake Note: Pt is here today for his PE: Last colonoscopy 02/22/13 Allergies No Known Allergies [No Known Allergies*] Allergy (Verified 08/05/24 01:37) Medication List - Last Reconciled 07/25/24 by Krissy Alaniz MD amlodipine 5 mg PO DAILY aspirin (Adult Low Dose Aspirin) 81 mg PO DAILY atorvastatin 40 mg PO DAILY blood pressure monitor Check blood pressure as directed cholecalciferol (vitamin D3) 125 mcg PO DAILY docusate sodium (Colace) 100 mg PO DAILY PRN finasteride 5 mg PO DAILY lisinopril 20 mg PO DAILY metoprolol succinate ER 100 mg PO DAILY [phone] mcg (Centrum Silver Men) 1 tab PO DAILY tamsulosin 0.4 mg PO BEDTIME Tobacco use date assessed: 07/25/24 Fall risk assessment: No Falls in past year Last assessed Fall Risk: 07/25/24 Dental Screening Dental Screen Date: 07/25/24 Did you have a dental visit in the last 12 months?: No Did you have a dental problem in the last 6 months where you did not have access to dental care?: No Was dental information given to patient?: No HPI Annual PE HPI Details 83 year-old male with history of coronar y artery disease, asymptomatic bilateral carotid artery stenosis, peripheral vascular disease, chronic kidney disease stage 2, hypertension and dyslipidemia, here today for a physical exam. - he has been complaining of weakness an d swelling in the legs, with a decline in energy and swelling of the ankles and legs over the past three months. - Known carotid artery disease with prev ious stenting performed in 1987 and a second procedure due to restenosis. - Underwent stenting of blood vessels in legs but experiences no pain, only weakness in lower extremities currently followed at [facility] vascular clinic. - he has benign prostatic hyperplasia an d has an elevated PSA level, currently being seen at [facility], last seen June 2024, management includes finasteride 5 mg daily and tamsulosin 0.4 mg at bedtime. -seen at the ER 07/22/2024 complaining of fatigue and a chest x-ray showed presence of a left upper lobe mass. 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 Additional 1.3 cm right upper lobe nodule was also seen. He is a former smoker but quit 30 years ago. [facility] Medical History Bilateral carotid artery stenosis Sinus bradycardia Gallstone CKD (chronic kidney disease) stage 2, GFR 60-89 ml/min Diverticulosis History of DVT of lower extremity Former smoker, stopped smoking in distant past Hx of myocardial infarction CAD (coronary artery disease) Hyperkalemia Benign prostatic hyperplasia PVD (peripheral vascular disease) Essential hypertension Dyslipidemia Surgical History Status post insertion of iliac artery stent Family History Father Heart problem Substance use disorder Mother Heart problem Social History Household Members: None Housing: Apartment Are you a primary pet care assistant to a significant other at home: No Do you presently have visiting nurse or other home services: No Alcohol intake: current Alcohol intake frequency: 0-2 drinks per day Alcohol type: wine Patient Tobacco Use Status: Former Tobacco user e-Cigarette/Vaping Use: Never Used service: No Current occupational status: retired Cognitive needs: No Hearing needs: No Vision needs: Yes Questionnaire PHQ-9 Over the last 2 weeks, how often have you been bothered by any of the following problems? 1. Little interest or pleasure in doing things: not at all 2. Feeling down, depressed, or hopeless: not at all 3. Trouble falling or staying asleep, or sleeping too much: not at all 4. Feeling tired or having little energy: not at all 5. Poor appetite or overeating: not at all 6. Feeling bad about yourself - or that you are a failure or have let yourself or your family down: not at all 7. Trouble concentrating on things, such as reading the newspaper or watching television: not at all 8. Moving or speaking so slowly that other people could have noticed. Or the opposite - being so fidgety or restless that you have been moving around a lot more than usual: not at all 9. Thoughts that you would be better off or of hurting yourself in some way: not at all Total score: 0 Depression Screening Interpretation: Negative Depression Screening Done: Yes 15066 - PHQ-9 Billing: Yes Source: Developed by Drs. Gino iBrch, Elissa Urena, Saw Zepeda and colleagues, with an educational guille from [employer]. Thrive Questionnaire Date Thrive assessed: 07/25/24 I am a: Patient What is your living situation today?: I have a steady place to live Within the past 12 months, did the food you bought not last and you didn't have the money to get more?: Never true Within the past 12 months, did you worry whether your food would run out before you got money to buy more?: Never true Do you have trouble paying for medicines?: No Do you have trouble getting transportation to medical appointments?: No Do you have trouble paying your heating and electricity bill?: No Do you have trouble taking care of your child, family member or friend?: No Do you have trouble with day-to-day activities such as bathing, preparing meals, shopping, managing finances, etc.?: No Are you currently unemployed and looking for a job?: No Are you interested in more education?: No THRIVE Score: 0 AUDIT C Alcohol Use Questionnaire (AUDIT-C) 1. How often do you have a drink containing alcohol?: Never Total Score: 0 NATA-7 AMB Questionnaire NATA-7 Date NATA - 7 assessed: 07/25/24 Feeling nervous, anxious, or on edge: 0 = Not at all Not being able to stop or control worryin = Not at all Worrying too much about different things: 0 = Not at all Trouble relaxin = Not at all Being so restless that it is hard to sit still: 0 = Not at all Becoming easily annoyed or irritable: 0 = Not at all Feeling afraid as if something awful might happen: 0 = Not at all Total NATA-7 score (0-4 normal; 5-9 mild; 10-14 moderate; 15-21 severe): 0 Source: Developed by Drs. Gino Birch, Elissa Urena, Saw Zepeda and colleagues, with an educational guille from [employer]. Review of Systems Const Denies body aches, Reports fatigue, Denies fever(s), Denies headache(s) and Denies weakness Eyes Denies change in vision ENT Denies vertigo, Denies dizziness, Denies headache(s), Denies nasal congestion, Denies nasal discharge and Denies sore throat Card Denies chest pain, Denies irregular heart rhythm, Denies claudication, Denies leg ulcers, Denies lightheadedness, Denies palpitations, Denies dyspnea and Denies dyspnea on exertion Resp Denies chest congestion, Denies cough, Denies dyspnea, Denies dyspnea on exertion and Denies wheezing GI Denies abdominal pain and Denies heartburn Denies urinary frequency, Reports urinary hesitancy, Denies urinary incontinence and Reports other (Decreased urinary stream) Musc Reports arthralgias (Elbows), Denies muscle weakness, Denies numbness, Reports stiffness and Denies tingling Skin/Breast Denies lesions and Denies sores Neuro Denies vertigo, Denies dizziness, Denies headache(s), Denies numbness, Denies Sensory deficit (Neuro), Denies tingling, Denies paresthesias and Denies weakness Psych Reports no additional complaints Endo Reports fatigue, Denies polydipsia, Denies polyuria and Denies palpitations Sunny/Lymph Reports easy bruising (In both arms) Aller/Immun Denies seasonal rhinorrhea and Denies wheezing Physical exam (Primary Care) Vital Signs: Last Vital Signs Temp 97.7 F 07/25/24 11:31 Pulse 57 07/25/24 11:31 Resp 16 07/25/24 11:31 BP 116/50 L 07/25/24 11:31 Pulse Ox 96 07/25/24 11:31 Oxygen Delivery Method Room Air 07/25/24 11:31 BMI result Body Mass Index 30.0 Tobacco/Smoking Status: Tobacco use Status Tobacco use date assessed 07/25/24 07/25/24 11:28 Patient Tobacco Use Status Former Tobacco user 07/25/24 11:23 e-Cigarette/Vaping Use Never Used 07/25/24 11:23 PHQ-9: PHQ-9 Score PHQ-9: Total score 0 08/05/24 01:42 Depression Screening Interpretation: Negative Thrive Assessment: Date of Thrive Assessment Date Thrive assessed 07/25/24 07/25/24 11:28 Const General: comfortable, no acute distress and Physically active Orientation/consciousness: patient oriented x3 HENMT Head: Yes normocephalic Ears: external ears normal General nose exam: Normal external nose present and No nasal discharge present Face and sinus: Yes face symmetric Eyes General: appearance normal, both eyes and all related structures Neck Other: Nonpalpable thyroid gland Neck: Yes full ROM, Yes no lymphadenopathy and Yes supple Thyroid: Thyroid normal Resp Auscultation: clear to auscultation bilaterally Cardio Rate: bradycardic Rhythm: regular rhythm Heart sounds: S1 normal heart sound present and S2 normal heart sound present Bruits: no abdominal aortic bruits GI Palpation (GI): No Abdominal aortic bruit present, Soft to palpation, nontender, no guarding and no masses Auscultation: normal bowel sounds General: Yes no CVA tenderness Back/Spine/Pelvis Back: no CVA tenderness and No back tenderness Skin General skin exam: no rashes or lesions noted Neuro General: patient oriented x3, gait normal, tone normal, moves all extremities, Normal light touch and pain sensation, no focal motor deficits and CN's II-XI intact bilaterally Cognition (Neuro): normal cognition Gait exam (Neuro): Normal gait present Sensory Exam: No Sensory deficit (Neuro) Extrem Other: Varicosities noted in both lower extremities General: Yes full ROM, Yes no joint enlargement, Yes no clubbing, cyanosis or edema, Yes no calf tenderness and Yes normal gait Psych Appearance: grossly normal and well kempt Mental Status: mental status grossly normal Speech and movement: Normal speech and movement present Affect: normal affect Results Reviewed Results Reviewed: Name: Lobito Cast Age/Sex: 83/M : 1940 Unit#: [id number] Attend Dr: Donell Donaldson MD Re07/22/24 Status: [facility] SPEC : [id number] VIN: 07/22/24 STATUS: COMP REQ : [id number] RECD: 07/22/[address]: Donell Donaldson MD COMP: 07/22/24 ENTERED: 07/22/24 [facility] DR: Krissy Alaniz MD [facility] ED Physician ORDERED: CMP, C Reactive Prot, TSH Test Result Flag Reference Sodium 140 135-145 mmol/L Potassium 4.8 3.3-5.1 mmol/L CL 109 H 96-108 mmol/L CO2 22 22-29 mmol/L Gap 14 12-20 BUN 22 H 9-16 mg/dL Creat 1.19 0.5-1.4 mg/dL Estimated CrCl 44.5 eGFR (calculated from the MDRD study equation) and eCrCl (calculated from the Cockcroft-Gault equation) are based on different parameters and may not yield comparable results. If eCrCl result is absurd, please check patient's height/weight. eGFR 58 Chronic Kidney Disease: Estimated GFR < 60 mL/min/1.73m2 Severe Kidney Disease: Estimated GFR < 15 mL/min/1.73m2 Glucose, Random 105 60-115 mg/dL CA 8.8 8.4-10.2 mg/dL Total Bili 1.0 0.0-1.0 mg/dL AST (GOT) 24 5-37 U/L ALT (GPT) 16 0-40 U/L CRP 7.73 H < or = 0.50 mg/dL Protein, Total 6.0 L 6.5-8.0 g/dL Alb 3.2 L 3.5-5.0 g/dL Alk Phos 62 39-117 U/L TSH 3rd Gen. 2.85 0.32-4.0 uIU/mL Note: A sustained TSH level above 2.5 uIU/mL may warrant further investigation. TSH 3rd Generation ([facility]) Coding Level of Care Code Est Pt Prev Care >65y(46432) Diagnoses Annual visit for general adult medical examination with abnormal findings Z00.01 Mass of upper lobe of left lung R91.8 Bilateral carotid artery stenosis I65.23 Coronary artery disease involving [place] coronary artery of [place] heart without angina pectoris I25.10 Associated angina: without angina Coronary Disease-Associated Artery/Lesion type: [place] artery [place] vs. transplanted heart: [place] heart Benign prostatic hyperplasia with urinary frequency N40.1; R35.0 Lower urinary tract symptom detail: urinary frequency Lower urinary tract symptom presence: symptoms present PVD (peripheral vascular disease) I73.9 Essential hypertension I10 Dyslipidemia E78.5 Additional Codes PHQ-9 - 83151 - PHQ-9 Billing: Yes ([id number]) Assessment & Plan Assessment & Plan (1) Annual visit for general adult medical examination with abnormal findings: Code(s): Z00.01 - Encounter for general adult medical examination with abnormal findings (2) Mass of upper lobe of left lung: Code(s): R91.8 - Other nonspecific abnormal finding of lung field Category: Medical (3) Bilateral carotid artery stenosis: Comment: Asymptomatic Code(s): I65.23 - Occlusion and stenosis of bilateral carotid arteries Category: Medical Plan: Followed at [facility] vascular. Continue aspirin 8 1 mg daily (4) CAD (coronary artery disease): Comment: s/p RCA and left circumflex stent in 1997 , restenosis of RCA in s/p rotational arthrectomy, ff'd by Dr Mauro Code(s): I25.10 - Atherosclerotic heart disease of [place] coronary artery without angina pectoris Category: Medical Qualifiers: Associated angina: without angina Coronary Disease-Associated Artery/Lesion type: [place] artery [place] vs. transplanted heart: [place] heart Qualified Code(s): I25.10 - Atherosclerotic heart disease of [place] coronary artery without angina pectoris Plan: Currently followed [facility] cardiology continued on aspirin 81 mg daily, metoprolol succinate ER 100 mg once a day, lisinopril 20 mg once a day, amlodipine 5 mg daily, and atorvastatin 40 mg daily. (5) Benign prostatic hyperplasia: Code(s): N40.0 - Benign prostatic hyperplasia without lower urinary tract symptoms Category: Medical Qualifiers: Lower urinary tract symptom detail: urinary frequency Lower urinary tra ct symptom presence: symptoms present Qualified Code(s): N40.1 - Benign prostatic hyperplasia with lower urinary tract symptoms; R35.0 - Frequency of micturition Plan: Currently on tamsulosin and finasteride, followed by [facility] (6) PVD (peripheral vascular disease): Comment: s/p stent in [place] in 1985 Code(s): I73.9 - Peripheral vascular disease, unspecified Category: Medical Plan: Continued on aspirin 81 mg daily, aggressive control of blood pressure and lipids and glucose as needed. Currently followed at [facility] vascular clinic (7) Essential hypertension: Code(s): I10 - Essential (primary) hypertension Category: Medical Plan: Blood pressure at goal of less than 130/80. Continue with current medication. Reinforced importance of following a low sodium diet, getting regular exercise, and lowering stress levels. (8) Dyslipidemia: Comment: target LDL < 70 Code(s): E78.5 - Hyperlipidemia, unspecified Category: Medical Plan For the patient's symptoms, the plan includes further investigation of the carotid artery disease with recent stenting to determine any need for further vascular procedures given the associated weakness and swelling. The patient should continue current conservative management to aid leg swelling, including the use of compression stockings and leg elevation. Continued management of the enlarged prostate with tamsulosin is advised. Arthritis pain management involves the use of Tylenol Arthritis, 650 mg every 8 hours, and alternative topical treatments like aspirin cream. Scheduled follow-up with a lung specialist is essential to evaluate the pulmonary mass possibly indicative of malignancy, and further anemia monitoring is advised. Nutritional support is reinforced with dietary changes and use of high-calorie supplements, while minimizing salt and butter intake. A comprehensive follow-up schedule with specialists ensures systematic monitoring of chronic conditions, especially cardiovascular disease, to inform treatment adjustments. - Take Tylenol Arthritis, 650 mg every 8 hours as needed for joint pain. - Use topical creams like aspirin or Absorbine El for arthritis. - Continue wearing compression stockings during the day to help with leg swelling. - See your pulmonary doctor on July 31 for further evaluation of lung mass. - Maintain a diet with low salt: eat vegetables like broccoli, consume lean proteins such as fish, and use olive oil instead of butter. - Drink Ensure or Boost smoothies to increase calorie intake. - Continue current medication for enlarged prostate as prescribed. - Keep up with annual medical follow-ups and specialist consultations. - Contact medical services if symptoms worsen, especially the weakness or swelling. -up-to-date with all his vaccinations except for the RSV vaccine and shingles vaccine. -last colonoscopy was done in 2012, no longer gets screenings Patient was informed and verbally consented to the use of an ambient scribe for clinic note documentation during this visit.
[2024-07-25 11:31] VITALS: BP 116/50; PULSE 57; RESP 16; TEMP 36.5; O2SAT 96
--- OUTSIDE RECORDS SUMMARY | 2024-07-25 11:54 | XMS_ITS | Data Portability ---
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 Procedures Surgical History Date Name Laterality Status Provider Name and Address Organization Details Recorded Time 5 JZShoulder INJ completed Trevor Pierce PA-C [address], [place], [address], [facility] 04/04/2024 13:40:34 4 JZShoulder INJ completed Trevor Pierce PA-C [address], [place], [address], [facility] 11/11/2023 10:36:06 Imaging Results [...] Updated DateTime 11/11/2023 162.56 cm 29.4 kg/m2 56498.3 g Casey Angel Stubbs N ew [facility] 11/11/2023 10:32:40 Date Recorded Body height Body mass index (BMI) Body weight Provider Name and Address Organization Details Last Updated DateTime 04/04/2024 162.56 cm 29.4 kg/m2 67508.3 g Casey Angel TOBIAS - [facility] 04/04/2024 13:31:10 Social History None recorded. Functional Status None recorded. Mental Status None recorded. Family History Nothing Reported. Medical History No medical history recorded. Past Encounters Encounter ID Performer Location Encounter Start Date Encounter Closed Date Diagnosis/Indication Diagnosis SNOMED-CT Code Diagnosis ICD10 Code Diagnosis Note [id number] [facility] [address] [place] [address] 11/11/2023 10:28:02 12/08/2023 15:04:20 Impingement syndrome of left shoulder region [id number] 70753 M75.42 [id number] [facility] [address] [place] [address] 04/04/2024 13:22:11 04/16/2024 09:16:25 Impingement syndrome of left shoulder region [id number] 80260 M75.42 Health Concerns Section Related Observation LastModified by Organization Detai ls LastModified Time None Recorded Concern Status LastModified by Organization Details LastModified Time None Recorded Advance Directives Directive None Recorded Payers Encounter Date Sequence Insurance Name Policy Number Policy Duque Covered Member ID Duque Member ID Guarantor Name 11/11/2023 2 [place] 104 Lobito B Boissonnault [id number] Lobito B [place]isson[place]ault 11/11/2023 1 [place] Lobito B Boissonnault [id number] Lobito B Boissonnault 04/04/2024 2 [place] 104 Lobito B [place]ault [id number] Lobito B Boissonnault 04/04/2024 1 [place] Lobiot B Boissonnault [id number] Lobito B Boissonnault
--- OUTSIDE RECORDS SUMMARY | 2024-07-25 11:54 | XMS_ITS | Continuity of Care Document ---
Author Organization [place] - [facility], [facility] Address [address] [place] [address] Care Team Providers Care Digital Computer Systems Analyst Name Role Phone JACQUIELAWYUE UlloaFRANCISCO Primary Care Provider Assessment Encounter Date Assessment Date Assessment LastModified by Organization Details LastModified Time 07/24/2024 07/24/2024 Right myringotomy tube is no longer present. Serous effusion is causing him to have decreased hearing on the right side. His most recent tube placement was around November 2023 and he will benefit from another tube placement procedure. We will schedule this for him shortly [email or web address] Not available 07/24/2024 13:51:54 Plan of Treatment Reminders Order Date Submit Date Provider Last Modified By Organization Details Last Modified Time Details Appointments PROCEDURE 30 2024 04:00P M ALEE HESS MD Not available Not available Not available Lab None recorded. Referral None recorded. Procedures None recorded. Surgeries None recorded. Imaging None recorded. Medication Orders None recorded. Patient TargetsNo targets recorded. Patient InstructionsNo instructions recorded. Reason for Referral None Reported. 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 33743845226 100 Active 2022 Sensorine ural hearing loss, unilatera l, right ear, with restricte d hearing on the contralat eral side; Note: Date Diagnosed : 3 10:57 AM (H90.A21) Not Available [facility] 4 03:06:09 Disorder of right Eustachia n tube 13778217431 38071 Active 2018 Other specified disorders of Eustachia n tube, right ear; Note: Date Diagnosed : 09/06/2018 10:33 AM (H69.81) Not Available [facility] 4 03:06:10 Mixed conductiv e and sensorine ural hearing loss of left ear 33234098971 107 Active 3 Mixed conductiv e and sensorine ural hearing loss, unilatera l, left ear with restricte d hearing on the contralat eral side; Note: Date Diagnosed : 3 10:57 AM (H90.A32) Not Available [facility] 4 03:06:09 Tinnitus of right ear 78118978028 08 Active 2018 Tinnitus, right ear; Note: Date Diagnosed : 09/06/2018 10:33 AM (H93.11) Not Available [facility] 4 03:06:09 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 75699082903 109 Active 2018 Sensorine ural hearing loss, unilatera l, left ear, with restricte d hearing on the contralat eral side; Note: Date Diagnosed : 09/06/2018 10:33 AM (H90.A22) Not Available [facility] 4 03:06:09 Mixed conductiv e and sensorine ural hearing loss, bilateral 753168109 Active 2019 Mixed conductiv e and sensorine ural hearing loss, bilateral ; Note: Date Diagnosed : 05/23/2019 11:38 AM (H90.6) Not Available [facility] 4 03:06:11 Mixed conductiv e and sensorine ural hearing loss of right ear 75335003429 105 Active 2018 Mixed conductiv e and sensorine ural hearing loss, unilatera l, right ear with restricte d hearing on the contralat eral side; Note: Date Diagnosed : 09/06/2018 10:33 AM (H90.A31) Not Available [facility] 4 03:06:11 Bilateral disorder of Eustachia n tubes 19733536064 82318 Active 2019 Other specified disorders of Eustachia n tube, bilateral ; Note: Date Diagnosed : 04/11/2019 10:17 AM (H69.83) Not Available [facility] 4 03:06:09 Chronic serous otitis media of right ear 337701655 Active 2023 ALEE HESS MD [address] [facility],[place] [address], [place], [address] , [facility] - [facility] 4 09:05:26 Sensorine ural hearing loss of bilateral ears 351747818 Active 2023 NOAH CARVAJAL [address] [place] [address],[place] [address], [place], [address] , [facility] - [facility] 4 13:45:48 Problem Notes None recorded. Procedures Surgical History Date Name Laterality Status Provider Name and Address Organization Details Recorded Time 4 Air & Speech Audio with Tymps - 33348, 80962 & 77173 completed NOAH CARVAJAL [address] [facility],[place] [address], [place], [address], [facility] - [facility] 12/28/2023 13:45:03 4 Myringotomy w/Placement of Tube right completed ALEE HESS MD [address] [facility],[place] [address], [place], [address], [facility] - [facility] 11/22/2023 10:11:03 4 Comp Audio with Tymps - 21894 & 79184 completed NOAH ROSEN [address] [facility],[place] [address], [place], [address], [facility] - [facility] 10/21/2023 09:56:25 Imaging Results None recorded. Procedure Notes None recorded. Medical Equipment None Reported. Medications Name Sig Start Date Stop Date Status Note LastModified by Organization Details LastModified Time atorvasta tin 40 mg tablet TAKE 1 TABLET BY MOUTH DAILY. active Not Available Not Available No t Available cetirizin e 10 mg tablet 07/24 completed Medicati on ID: [id number] D uration Value: 30 Brand Name: thalia ne Send Method: E-Prescr ibed Sub s Allowed: subs OK Speci al Instruct ion: TAKE ONE TABLET BY MOUTH AT BEDTIME NEEDED FOR ALLERGIE S Medica tionGene ricName: thalia ne Not Available Not Available Not Available azithromy kat 250 mg tablet TAKE 2 TABLETS ON FIRST DAY , THEN 1 TABLET DAILY FOR 4 DAYS 07/24 completed Not Available Not Available Not Available ofloxacin 0.3 % eye drops APPLY 5 DROPS TO EACH EAR TWO TIMES A DAY FOR 3 DAYS. active Not Available Not Available No t Available lisinopri l 20 mg tablet TAKE 1 TABLET BY MOUTH DAILY active Not Available Not Available No t Available metoprolo l succinate ER 100 mg tablet,ex tended release 24 hr TAKE 1 TABLET BY MOUTH DAILY. active Not Available Not Available No t Available amlodipin e 5 mg tablet TAKE 1 TABLET BY MOUTH DAILY. active Not Available Not Available No t Available aspirin 81 mg tablet,de layed release TAKE 1 TABLET BY MOUTH DAILY. active Not Available Not Available No t Available ofloxacin 0.3 % ear drops INSTILL 4 DROPS TWICE A DAY BY OTIC ROUTE FOR 3 DAYS. active Not Available Not Available No t Available tamsulosi n 0.4 mg capsule TAKE ONE CAPSULE BY MOUTH DAILY AT BEDTIME active Not Available Not Available No t Available docusate sodium 100 mg capsule TAKE 1 CAPSULE BY MOUTH DAILY NEEDED FOR CONSTIPA TION. 07/24 completed Not Available Not Available Not Available fluticaso ne propionat e 50 mcg/actua tion nasal spray,skylar pension 2 puff into both nostrils 2019 active Medicati on ID: [id number] D uration Value: 30 Prescri bed By Name: Michael Moss MD Brand Name: fluticas one propiona te Send Method: E-Prescr ibed Sub s Allowed: subs OK Medic ationGen ericName : fluticas one propiona te Not Available Not Available Not Available finasteri de 5 mg tablet TAKE 1 TABLET BY MOUTH ONCE A DAY. active Not Available Not Available No t Available NexImmune Vitamin 2018 active Medicati on ID: [id number] B rand Name: century vitamin Send Method: E-Prescr ibed Sub s Allowed: subs OK Medic ationGen ericName : century vitamin Not Available Not Available Not Available June-estelita 8.6 mg tablet 07/24 completed Medicati on ID: [id number] B rand Name: Bakari Send Method: E-Prescr ibed Sub s Allowed: subs OK Speci al Instruct ion: TAKE ONE TABLET BY MOUTH AT BEDTIME NEEDED FOR CONTIPAT ION Medi cationGe nericNam e: June-estelita Not Available Not Available Not Available Vitals Date Recorded Body height Body mass index (BMI) Body weight Provider Name and Address Organization Details Last Updated DateTime 07/24/2024 162.56 cm 29.2 kg/m2 03624.7 g PAUL KING [place] - [facility] 07/24/2024 13:42:23 Social History None recorded. Functional Status None recorded. Mental Status None recorded. Family History Nothing Reported. Medical History No medical history recorded. Past Encounters Encounter ID Performer Location Encounter Start Date Encounter Closed Date Diagnosis/Indication Diagnosis SNOMED-CT Code Diagnosis ICD10 Code Diagnosis Note [id number] ALEE HESS MD [facility] [address] [address] 07/24/2024 13:36:19 07/24/2024 13:54:39 Chronic serous otitis media of right ear 833941479 H65.21 Health Concerns Section Related Observation LastModified by Organization Detai ls LastModified Time None Recorded Concern Status LastModified by Organization Details LastModified Time None Recorded Payers Encounter Date Sequence Insurance Name Policy Number Policy Duque Covered Member ID Duque Member ID Guarantor Name 07/24/2024 1 [place] [employer] [id number] [employer] 07/24/2024 2 [place] [id number] [employer] [id number] [employer] Notes Date Note Type Note Provider Name and Address Organization Details Recorded Time 07/24/2024 text/html RIGHT tube checkfeels hearing is improved for past 6 months more leg swelling - using compression socks PV 11/24/23 Divya: placement myringotomy tubeprev hx of right MT with Dr Moss12/31/22 - Right myringotomy tube, Yolie nasopharynx exam 06/2020 - 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 - [facility] 07/24/2024 13:52:37
--- OUTSIDE RECORDS SUMMARY | 2024-07-25 11:54 | XMS_ITS | Continuity of Care Document ---
Demographics Address [address] [facility] [address] [place] [id number] Home Phone Preferred Language en Marital Status Unknown Pentecostalism Affiliation Unknown Race Unknown Ethnic Group Unknown Author Name [facility] Organization [facility] Care Team Providers Care Purchasing Contracting Clerk Name Role Phone [facility] Unavailable Unavailable Problems Combined list of problems from Department of [facility] and [facility] facilities. It does not include entries that were removed or entered in error. Problem Status Onset Date Problem Type Date of Resolution Comments Source Visual impairment Active 4 Condition August 03, 2023 Entered By: DIANNE BOCANEGRA Comment: wears eyeglasses [facility] [place] [facility] Impacted wax Active 3 Condition August 03, 2022 Entered By: DIANNE BOCANEGRA Comment: treated with irrigation [facility] [place] [facility] COR ATHEROSCL UNSP TYP-VES Active Condition [facility] [place] [facility] HYPERTENSION NOS [...] BY MOUTH ORAL ACTIVE JODI VOSS 2020 [facility] ASPIRIN 81MG TAB,EC TAKE ONE TABLET BY MOUTH ORAL ACTIVE JODI VOSS 2020 [facility] ATORVASTATI N CA 80MG TAB TAKE ONE TABLET BY MOUTH AT BEDTIME ORAL ACTIVE MAYNOR [facility]OCANEGRA [address] [facility] LISINOPRIL TAB TAKE BY MOUTH ORAL ACTIVE SHANIKAJODI J [address] [facility] METOPROLOL SUCCINATE TAB,SA TAKE BY MOUTH ORAL ACTIVE OSHICASSIDYJODI J [address] [facility] TAMSULOSIN (1ST LINE ALPHA SUE) CAP,ORAL TAKE BY MOUTH ORAL ACTIVE OSHINSLUISAJODI J [address] [facility] Immunizations Combined list of available immunizations from the Department of Defense and Veterans Affairs facilities. Immunization Series Date Given Administered By Site Reaction Lot Number CVX Code Drug Agent Based Modeler Status Comments Source INFLUENZA, UNSPECIFIED FORMULATION 2022 88 complet ed Booster for Series, HISTORICA L INFORMATI ON - FROM OTHER PROVIDER, [facility] INFLUENZA, UNSPECIFIED FORMULATION 2021 88 complet ed HISTORICA L INFORMATI ON - SOURCE UNSPECIFI ED, [facility] COVID-19 (MODERNA), MRNA, LNP-S, PF, 100 MCG/0.5 ML DOSE 2 2020 207 complet ed MOD; [id number]; 1 [facility] COVID-19 (MODERNA), MRNA, LNP-S, PF, 100 MCG/0.5 ML DOSE 1 2020 207 complet ed MOD; [id number]; 1 [facility] FLU,3 YRS (HISTORICAL) 2001 88 [...] to the last 18 months, not all [place] inpatient encounters are included; 2) Encounters from the Department of Defense facilities going backup to 280 months. Location Location Details Encounter Type Encounter Number Reason For Visit Attending Provider ADM Date DC Date Status Disposition Source [facility] Outpatient Encounter [id number] 05/17 [facility] OFFICE O/P EST LOW 20 MIN [id number] Diagnos is: ICD-10- CM H53.30 Unspeci fied disorde r of binocul ar vision LUIZ BOCANEGRA RD D 08/02 [facility] COMPRE OPH EXAM EST PT 1/> [id number] Diagnos is: ICD-10- CM 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, hole, or pseudoh ole, right eye MERHAR,ANGELLA H B 12/13 [facility] CPTR OPHTH DX IMG POST SEGMT [id number] Diagnos is: ICD-10- CM 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 Social History Type Response Date Comment Sour e Tobacco smoking status NHIS GA-TOBACCO FORMER USER 08/03/2023 [facility] [place] [facility] of [facility] [place] [facility] History of tobacco use GA-TOBACCO FORMER USER 08/03/2022 [facility] [place] [facility] History of tobacco use HISTORY OF SMOKING 07/05/2001 x 10yrs [place] Plan of Care List of future care activities from Department of Veterans Affairs facilities. Additional future care activities may be listed in the Assessment and Plan section. Date/Time Care Activity Care Activity Detail Facili ty 08/01/2024 AMBULATORY - MEDICINE AMBULATORY - MEDICI [place] [facility] [place] [facility]
--- OUTSIDE RECORDS SUMMARY | 2024-07-25 11:54 | XMS_ITS | Data Portability ---
Author Organization [place] - [facility], Allergy Address [address] [address] Care Team Providers Care Radiology Clerk Name Role Phone FRANCISCO EDGAR Primary Care [...] and follow-up after for repeat hearing test. [email or web address] Not available 10/21/2023 10:24:24 11/24/2023 11/24/2023 Informed [...] were discussed. We discussed the risk of correction perforation following tube extrusion, with possible need [...] with PA. [email or web address] Not available 12/28/2023 14:22:58 07/24/2024 07/24/2024 Right myringotomy tube is no [...] Time Details Appointments PROCEDURE 30 2024 04:00P Meir HESS MD Not available Not available Not available Lab None recorded. Referral None recorded. Procedures None recorded. Surgeries None recorded. Imaging None recorded. Medication Orders ofloxacin 0.3 % ear drops 2023 024 [facility], [address] [place], [address], 11/24/2023 11:03:21 Patient TargetsNo targets recorded. Patient InstructionsNo instructions recorded. Reason for Referral None Reported. Results Created Date Observation Date Name Description Value Unit Range Abnormal Flag Note LastModifiedBy Organization Detail LastModifiedTime 10/21/19 audio gram No observ ation record ed. [email or web address] Not Available 04/2023 13:25:24 11/09/19 24 05/23/2019 [...] audio gram No observ ation record ed. [email or web address] Not Available 12/19 12:12:11 Result Notes None recorded. 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 60410755647 100 Active 2022 Sensorine ural hearing loss, unilatera l, right ear, with restricte d hearing on the contralat eral side; Note: Date Diagnosed : 3 10:57 AM (H90.A21) Not Available [facility] 4 03:06:09 Disorder of right Eustachia n tube 82835191597 49401 Active 2018 Other specified disorders of Eustachia n tube, right ear; Note: Date Diagnosed : 09/06/2018 10:33 AM (H69.81) Not Available [facility] 4 03:06:10 Mixed conductiv e and sensorine ural hearing loss of left ear 52428266130 107 Active 3 Mixed conductiv e and sensorine ural hearing loss, unilatera l, left ear with restricte d hearing on the contralat eral side; Note: Date Diagnosed : 3 10:57 AM (H90.A32) Not Available [facility] 4 03:06:09 Tinnitus of right ear 84560786298 08 Active 2018 Tinnitus, right ear; Note: Date Diagnosed : 09/06/2018 10:33 AM (H93.11) Not Available [facility] 4 03:06:09 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 60158097543 109 Active 2018 Sensorine ural hearing loss, unilatera l, left ear, with restricte d hearing on the contralat eral side; Note: Date Diagnosed : 09/06/2018 10:33 AM (H90.A22) Not Available [facility] 4 03:06:09 Mixed conductiv e and sensorine ural hearing loss, bilateral 266358597 Active 2019 Mixed conductiv e and sensorine ural hearing loss, bilateral ; Note: Date Diagnosed : 05/23/2019 11:38 AM (H90.6) Not Available [facility] 4 03:06:11 Mixed conductiv e and sensorine ural hearing loss of right ear 08091432619 105 Active 2018 Mixed conductiv e and sensorine ural hearing loss, unilatera l, right ear with restricte d hearing on the contralat eral side; Note: Date Diagnosed : 09/06/2018 10:33 AM (H90.A31) Not Available [facility] 4 03:06:11 Bilateral disorder of Eustachia n tubes 99835343047 38604 Active 2019 Other specified disorders of Eustachia n tube, bilateral ; Note: Date Diagnosed : 04/11/2019 10:17 AM (H69.83) Not Available [facility] 4 03:06:09 Chronic serous otitis media of right ear 366225063 Active [address]23 ALEE HESS MD [address] [facility],[place] [address], [place], [address] , [place] - [facility] 4 09:05:26 Sensorine ural hearing loss of bilateral ears 045971578 Active 2023 ISSAC PALACIO, [facility] [address] [facility],[place] [address], [place], [address] , [facility] - [facility] 13:45:48 Problem Notes None recorded. Procedures Surgical History Date Name Laterality Status Provider Name and Address Organization Details Recorded Time 4 Air & Speech Audio with Tymps - 58738, 16447 & 14076 completed ISSAC PALACIO [facility] [address] [facility],[place] [address], [place], [address], [facility] - [facility] 12/28/2023 13:45:03 Myringotomy w/Placement of Tube right completed ALEE HESS MD [address] [facility],[place] [address], [place], [address], [facility] - [facility] 11/22/2023 10:11:03 Comp Audio with Tymps - 81154 & 52896 completed DOM JEFFERSON [facility] [address] [facility],[place] [address], [place], [address], [place] - [facility] 10/21/2023 09:56:25 Imaging Results Imaging Date Name Status LastModified by Organ [facility] Details LastModified Time 10/21/2023 audiogram completed [email or web address] Information n ot available 10/21/2023 13:25:24 05/23/2019 [...] not available 11/09/2023 02:02:47 12/29/2023 audiogram completed [email or web address] Information n ot available 12/29/2023 12:12:11 Procedure Notes None recorded. Medical Equipment None Reported. Medications Name Sig Start Date Stop Date Status Note LastModified by Organization Details LastModified Time atorvasta tin 40 mg tablet TAKE 1 TABLET BY MOUTH DAILY. active Not Available Not Available No t Available cetirizin e 10 mg tablet 07/24 completed Medicati on ID: [id number] D uration Value: 30 Brand Name: cetirizi ne Send Method: E-Prescr ibed Sub s Allowed: subs OK Speci al Instruct ion: TAKE ONE TABLET BY MOUTH AT BEDTIME NEEDED FOR ALLERGIE S Medica tionGene ricName: cetirizi ne Not Available Not Available Not Available [...] both nostrils 2019 active Medicati on ID: [id number] D uration Value: 30 Prescri bed By [...] No t Available Century Vitamin 2018 active Medicati on ID: [id number] B rand Name: century vitamin Send Method: E-Prescr ibed Sub s Allowed: subs OK Medic ationGen ericName : century vitamin Not Available Not Available Not Available June-estelita 8.6 mg tablet 07/24 completed Medicati on ID: [id number] B rand Name: June-estelita Send Method: E-Prescr ibed Sub s Allowed: subs OK Speci al Instruct ion: TAKE ONE TABLET BY MOUTH AT BEDTIME NEEDED FOR CONTIPAT ION Medi cationGe nericNam e: June-estelita Not Available Not Available Not Available Vitals Date Recorded Body height Body mass index (BMI) Body weight Provider Name and Address Organization Details Last Updated DateTime 07/24/2024 162.56 cm 29.2 kg/m2 47255.7 g PAUL KING [place] - [facility] 07/24/2024 13:42:23 Date Recorded Body height Body mass index (BMI) Body weight Provider Name and Address Organization Details Last Updated DateTime 10/21/2023 162.56 cm 29.2 kg/m2 72325.7 g Cam Stubbs [facility] 10/21/2023 09:13:10 Date Recorded Body height Body mass index (BMI) Body weight Provider Name and Address Organization Details Last Updated DateTime 11/24/2023 162.56 cm 29.2 kg/m2 08606.7 g Shyanne Sadler [place] - [facility] 11/24/2023 10:30:47 Date Recorded Body height Body mass index (BMI) Body weight Provider Name and Address Organization Details Last Updated DateTime 12/28/2023 162.56 cm 28.7 kg/m2 18945.93 g Shyanne Sadler [facility] 12/28/2023 14:07:51 Social History None recorded. Functional Status None recorded. Mental Status None recorded. Family History Nothing Reported. Medical History No medical history recorded. Past Encounters Encounter ID Performer Location Encounter Start Date Encounter Closed Date Diagnosis/Indication Diagnosis SNOMED-CT Code Diagnosis ICD10 Code Diagnosis Note [id number] PA-C [facility] [address] [address] 10/21/2023 08:46:53 10/21/2023 10:12:46 Bilateral chronic serous otitis 439641674 H65.23 Bilateral disorder of Eustachian tubes 3401274499 695295 H69.83 [id number] NOAH ROSEN [facility] [address] [address] 10/21/2023 09:56:05 10/25/2023 07:12:55 Mixed conductive and sensorineural hearing loss of right ear 8070784193 9105 H90.A31 Sensorineu ral hearing loss in left ear 2363022974 9109 H90.A22 Audiologic al evaluation results: Right [...] Cou ld not maintain a hermetic seal}} [id number] ALEE HESS MD [facility] [address] [address] 11/24/2023 10:23:04 11/24/2023 11:04:34 Chronic serous otitis media of right ear 901656618 H65.21 ALEE HESS MD [facility] [address] [address] 12/28/2023 13:20:30 12/28/2023 14:23:26 Chronic serous otitis media of right ear 389745415 H65.21 NOAH CARVAJAL [facility] [address] [address] 12/28/2023 13:44:26 12/29/2023 07:28:34 Sensorineural hearing loss of bilateral ears 944750161 H90.3 Audiologic al evaluation results:Ri t ear:{{Norm al sloping* M ild Modera te [...] last visit. Ears are now symmetrica l. [id number] ALEE HESS MD [facility] [address] [place] [address] 07/24/2024 13:36:19 07/24/2024 13:54:39 Chronic serous otitis media of right ear 409881883 H65.21 Health Concerns Section Related Observation LastModified by Organization Detai ls LastModified Time None Recorded Concern Status LastModified by Organization Details LastModified Time None Recorded Advance Directives Directive None Recorded Payers Insurance Date Sequence Insurance Name Policy Number Policy Duque Covered Member ID Duque Member ID Guarantor Name 07/23/2024 1 [place] [employer] Lobito Novak [place] [id number] Lobito B Boissonnault 07/25/2024 2 [place] [employer]GRAM 104 Lobito B Boissonnault [id number] Lobito B [place]isson[place] Notes Date Note Type Note Provider Name and Address Organization Details Recorded Time 10/21/2023 text/html 82-year-old male with history of recurrent effusion of the right ear presents for reevaluation. Had RMT in office about a year ago but feels his tube has come out. Cannot hear much out of the right side. ALEE HESS MD [address] [place] [address],[place] [address], [place], [address], [facility] - [facility] 10/21/2023 17:28:10 11/24/2023 text/html prev hx of right MT with Dr Moss12/31/22 - Right myringotomy tube, Yolie nasopharynx exam 06/2020 - benignnow tube is out and he feels hearing is worse on right. left side is OK PV 10/21/23: Deon noted right serous effusion retired from [employer]. very well travelled ALEE HESS MD [address] 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 - [facility] 07/24/2024 13:52:37
== END 2024-07-25 12:27 | disposition home or self-care (01) ==
LOC: HO.HMCC 10:36
PROVIDERS: PCP Internal Medicine; Visit Provider Internal Medicine
DX: Z00.00 Encounter for general adult medical examination without abnormal findings (principal); R91.8 Other nonspecific abnormal finding of lung field; I65.23 Occlusion and stenosis of bilateral carotid arteries; I25.10 Atherosclerotic heart disease of native coronary artery without angina pectoris; N40.1 Benign prostatic hyperplasia with lower urinary tract symptoms; R35.0 Frequency of micturition; I73.9 Peripheral vascular disease, unspecified; I10 Essential (primary) hypertension; E78.5 Hyperlipidemia, unspecified

== ENCOUNTER → 2024-07-25 10:36 | Outpatient (BNVA) | payer MEDICARE, BC, SELFPAY | PROVIDERS: PCP Internal Medicine; Visit Provider Internal Medicine | DX: Z00.01 Encounter for general adult medical examination with abnormal findings (principal); R91.8 Other nonspecific abnormal finding of lung field; I65.23 Occlusion and stenosis of bilateral carotid arteries; I25.10 Atherosclerotic heart disease of native coronary artery without angina pectoris; N40.1 Benign prostatic hyperplasia with lower urinary tract symptoms; R35.0 Frequency of micturition; I73.9 Peripheral vascular disease, unspecified; I10 Essential (primary) hypertension; E78.5 Hyperlipidemia, unspecified | CPT/HCPCS: 96127; 99397 ==

== ENCOUNTER → 2024-07-31 13:01 | Outpatient (BNV) | payer MEDICARE, BC, SELFPAY | PROVIDERS: PCP Internal Medicine; Visit Provider Internal Medicine Medical Oncology | DX: R91.8 Other nonspecific abnormal finding of lung field (principal); F17.200 Nicotine dependence, unspecified, uncomplicated | CPT/HCPCS: 99204 ==

== ENCOUNTER 2024-08-04 10:36 | Emergency (ER) | payer MEDICARE, BC, SELFPAY ==
--- NOTE | ~2024-08-04 | XR_ITS ---
CLINICAL HISTORY: Weakness, rule out pneumonia 2 view chest x-ray Comparison: CT/[place]/SR - CT CHEST W IV CON - 07/22/24 13:29 EDT CR - XR CHEST 2V - 07/22/24 12:18 EDT Findings: There is a left upper lobe mass without change. 1.3 cm faint nodular focus within the right mid lung without change. No pleural effusion. Heart size is normal. No acute fracture. 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 Additional 1.3 cm nodular focus within the right mid lung without change, also potentially secondary to neoplasm. This document has been electronically signed by: Cindy Gutierrez MD on 08/04/2024 13:28:05
[2024-08-04 10:51] VITALS: BP 117/43; BP 128/68; PULSE 65; PULSE 68; RESP 18; TEMP 36.7; O2SAT 95; O2SAT 96; BMI 29.2
--- OUTSIDE RECORDS SUMMARY | 2024-08-04 11:21 | XMS_ITS | Data Portability ---
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 4 11:41:48 Impingeme nt syndrome of right shoulder region 984222923296 102 Active 2017 Problem Code: M75.41; Problem Code Type: ICD-10; Status: 'A'; Not [facility] 4 11:41:48 Problem Notes None recorded. Procedures Surgical History Date Name Laterality Status Provider Name and Address Organization Details Recorded Time 5 JZShoulder INJ completed Trevor Pierce PA-C [address], [place], [address], [facility] 04/04/2024 13:40:34 4 JZShoulder INJ completed Trevor Pierce PA-C [address], [place], [address], [facility] 11/11/2023 10:36:06 Imaging [...] Updated DateTime 11/11/2023 162.56 cm 29.4 kg/m2 23426.3 g Casey Angel Stubbs N ew [facility] 11/11/2023 10:32:40 Date Recorded Body height Body mass index (BMI) Body weight Provider Name and Address Organization Details Last Updated DateTime 04/04/2024 162.56 cm 29.4 kg/m2 76891.3 g Casey Angel TOBI[facility] - [facility] 04/04/2024 13:31:10 Social History None recorded. Functional Status None recorded. Mental Status None recorded. Family History Nothing Reported. Medical History No medical history recorded. Past Encounters Encounter ID Performer Location Encounter Start Date Encounter Closed Date Diagnosis/Indication Diagnosis SNOMED-CT Code Diagnosis ICD10 Code Diagnosis Note [id number] [facility] [address] floor [address] [place] [address] 11/11/2023 10:28:02 12/08/2023 15:04:20 Impingement syndrome of left shoulder region 0003854119 08165 M75.42 [id number] [facility] Evelyne Osuna [address] [place] [address] 04/04/2024 13:22:11 04/16/2024 09:16:25 Impingement syndrome of left shoulder region 4505532535 40333 M75.42 Health Concerns Section Related Observation LastModified by Organization Detai ls LastModified Time None Recorded Concern Status LastModified by Organization Details LastModified Time None Recorded Advance Directives Directive None Recorded Payers Encounter Date Sequence Insurance Name Policy Number Policy Duque Covered Member ID Duque Member ID Guarantor Name 11/11/2023 2 [place] 104 Lobito B [place] [id number] Lobito B [place] 11/11/2023 1 [place] [employer] Lobito B Boissonnault [id number] Lobito B Boissonnault 04/04/2024 2 [place] 104 Lobito B [place] [id number] Lobito B Boissonnault 04/04/2024 1 [place] Lobito B [place] [id number] Lobito B Boissonnault
--- OUTSIDE RECORDS SUMMARY | 2024-08-04 11:21 | XMS_ITS | Continuity of Care Document ---
Demographics Address [address] [place] [address] Home Phone Preferred Language en Marital Status Unknown Judaism Affiliation Unknown Race Unknown Ethnic Group Unknown Author Name [facility] Organization [facility] Care Team Providers Care Driller Portable Name Role Phone [facility] Unavailable Unavailable Problems Combined list of problems from Department of Defense and Veterans Affairs facilities. It does not include entries that were removed or entered in error. Problem Status Onset Date Problem Type Date of Resolution Comments Source Visual impairment Active 4 Condition August 03, 2023 Entered By: DIANNE BOCANEGRA Comment: wears eyeglasses [facility] Impacted wax Active 3 Condition August 03, 2022 Entered By: DIANNE BOCANEGRA Comment: treated with irrigation [facility] COR ATHEROSCL UNSP TYP-VES Active Condition [facility] HYPERTENSION NOS Active Condition [facility] Diagnosis: ICD-10-CM H54.7 Unspecified visual loss Active Diagnosis [facility] Diagnosis: ICD-10-CM Z46.0 Encounter for fit/adjst of spectacles and contact lenses Active Diagnosis [facility] Diagnosis: ICD-10-CM 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 Medication Details Route Status Patient Instructions Prescription Expires Prescription Number Last Dispense Date Ordering Provider Order Date Order Qty Source AMLODIPINE BESYLATE TAB TAKE BY MOUTH ORAL ACTIVE JODI VOSS 2020 [facility] ASPIRIN 81MG TAB,EC TAKE ONE TABLET BY MOUTH ORAL ACTIVE OLAF VOSSELISABETH Peraza 2020 [facility] ATORVASTATI N [place] 80MG TAB TAKE ONE TABLET BY MOUTH AT BEDTIME ORAL ACTIVE MAYNOR BOCANEGRA 2024 [facility] LISINOPRIL TAB TAKE BY MOUTH ORAL ACTIVE SHANIKAJODI Stu 2020 [facility] METOPROLOL SUCCINATE TAB,SA TAKE BY MOUTH ORAL ACTIVE OSHINSLUISAJODI J [facility] TAMSULOSIN (1ST LINE ALPHA SUE) CAP,ORAL TAKE BY MOUTH ORAL ACTIVE OSJAJANSJODI MORAN Stu 2020 [facility] Immunizations Combined list of available immunizations from the Department of Defense and Veterans Affairs facilities. 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 Status Comments Source INFLUENZA, UNSPECIFIED FORMULATION 2022 88 complet ed Booster for Series, HISTORICA L INFORMATI ON - FROM OTHER PROVIDER, [facility] INFLUENZA, UNSPECIFIED FORMULATION 2021 88 complet ed HISTORICA L INFORMATI ON - SOURCE UNSPECIFI ED, [facility] COVID-19 (MODERNA), MRNA, LNP-S, PF, 100 MCG/0.5 ML DOSE 2 2020 207 complet ed MOD; [id number]; 1 [facility] COVID-19 (MODERNA), MRNA, LNP-S, PF, 100 MCG/0.5 ML DOSE 1 2020 207 complet ed MOD; [id number]; 1 [facility] FLU,3 YRS (HISTORICAL) 2001 88 complet ed [place] PNEUMOCOCCAL, UNSPECIFIED FORMULATION 2001 HOLGER VOGT PA 109 complet ed [place] Vital Signs Combined list of inpatient and outpatient Vital Signs from Department of Defense and Veterans Affairs, ranging from 12 months to all on record, depending upon the facility. Vital Sign Value Date Comments Source SYSTOLIC BLOOD PRESSURE 132 08/02/19 25 09:12:04 [facility] DIASTOLIC BLOOD PRESSURE 60 025 09:12:04 [facility] PULSE OXIMETRY 97 08/01/2024 09:12:04 [facility] WEIGHT 177 08/01/2024 09:12:04 [facility] BMI 30 kg/m2 08/01/2024 09:12:04 [facility] PAIN 0 08/01/2024 09:12:04 [facility] HEIGHT 64 08/01/2024 09:12:04 [facility] TEMPERATURE 97.8 08/01/2024 09:12:04 [facility] PULSE 68 08/01/2024 09:12:04 [facility] RESPIRATION 16 08/01/2024 09:12:04 [facility] Encounters Combined list of: 1) Encounters from Department of Veterans Affairs facilities going backup to the last 18 months, not all VA inpatient encounters are included; 2) Encounters from the Department of Defense facilities going backup to 280 months. Location Location Details Encounter Type Encounter Number Reason For Visit Attending Provider ADM Date DC Date Status Disposition Source [facility] Outpatient Encounter [id number] 05/17 [facility] OFFICE O/P EST LOW 20 MIN [id number] [id number] Diagnos is: ICD-10- CM H53.30 Unspeci fied disorde r of binocul ar vision LUIZ BOCANEGRA RD D 08/02 [facility] [place] 1/ 73411-1.63 [id number] Diagnos is: ICD-10- CM 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, hole, or pseudoh ole, right eye MERARTHURANGELLA H B 12/13 [facility] CPTR OPHTH DX IMG POST SEGMT 53986-6.63 [id number] Diagnos is: ICD-10- CM 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, hole, or pseudoh ole, right eye MERARTHUR,ANGELLA H B 12/13 [facility] FIT SPECTACLES MONOFOCAL 99550-3.63 [id number] Diagnos is: ICD-10- CM Z46.0 Encount er for fit/adj st of spectac les and contact lenses ANGELLA ULRICH H B 12/13 [facility] OFFICE O/P EST LOW 20 MIN 25107-1.63 [id number] Diagnos is: ICD-10- CM H54.7 Unspeci fied visual loss LUIZ BOCANEGRA RD D 08/01 [facility] Social History Combined list of available smoking, tobacco, and other social history from Department of Defense and Veterans Affairs facilities. Social History Type Response Date Comment Sourc e Tobacco smoking status NHIS VA-TOBACCO USE FORMER CIGARETTES 08/01/2024 [facility] History of tobacco use VA-TOBACCO NEVER USED OTHER TYPE 08/01/2024 [facility] History of tobacco use VA-TOBACCO FORMER USER 08/03/2023 [facility] History of tobacco use VA-TOBACCO FORMER USER 08/03/2022 [facility] History of tobacco use HISTORY OF SMOKING 07/05/2001 x 10yrs [facility] Plan of Care List of future care activities from Department of Veterans Affairs facilities. Additional future care activities may be listed in the Assessment and Plan section. Date/Time Care Activity Care Activity Detail Facili ty 12/19/2024 AMBULATORY - MEDICINE [facility]
--- OUTSIDE RECORDS SUMMARY | 2024-08-04 11:21 | XMS_ITS | Data Portability ---
Author Organization [place] - [facility], Allergy Address [address] [address] Care Team Providers Care Wage And Salary Administrator Name Role Phone FRANCISCO EDGAR Primary Care Provider [phone] Assessment Encounter Date Assessment Date Assessment LastModified [...] and follow-up after for repeat hearing test. [email or web address] Not available 10/21/2023 10:24:24 11/24/2023 11/24/2023 Informed [...] were discussed. We discussed the risk of care home perforation following tube extrusion, with possible need [...] ofloxacin 0.3 % ear drops 2023 024 [facility], [address] [place], [address], 11/24/2023 11:03:21 Patient TargetsNo targets recorded. Patient InstructionsNo instructions recorded. Reason for Referral None Reported. Results Created Date Observation Date Name Description Value Unit Range Abnormal Flag Note LastModifiedBy Organization Detail LastModifiedTime 10/21/19 audio gram No observ ation record ed. [email or web address] Not Available 04/2023 13:25:24 11/09/19 24 05/23/2019 [...] audio gram No observ ation record ed. [email or web address] Not Available 12/19 12:12:11 Result Notes None recorded. 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 44151647255 100 Active 2022 Sensorine ural hearing loss, unilatera l, right ear, with restricte d hearing on the contralat eral side; Note: Date Diagnosed : 3 10:57 AM (H90.A21) Not Available [facility] 4 03:06:09 Disorder of right Eustachia n tube 27408225552 92172 Active 2018 Other specified disorders of Eustachia n tube, right ear; Note: Date Diagnosed : 09/06/2018 10:33 AM (H69.81) Not Available [facility] 4 03:06:10 Mixed conductiv e and sensorine ural hearing loss of left ear 05846291460 107 Active 3 Mixed conductiv e and sensorine ural hearing loss, unilatera l, left ear with restricte d hearing on the contralat eral side; Note: Date Diagnosed : 3 10:57 AM (H90.A32) Not Available [facility] 4 03:06:09 Tinnitus of right ear 72678003836 08 Active 2018 Tinnitus, right ear; Note: Date Diagnosed : 09/06/2018 10:33 AM (H93.11) Not Available [facility] 4 03:06:09 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 14776263552 109 Active 2018 Sensorine ural hearing loss, unilatera l, left ear, with restricte d hearing on the contralat eral side; Note: Date Diagnosed : 09/06/2018 10:33 AM (H90.A22) Not Available [facility] 4 03:06:09 Mixed conductiv e and sensorine ural hearing loss, bilateral 394200422 Active 2019 Mixed conductiv e and sensorine ural hearing loss, bilateral ; Note: Date Diagnosed : 05/23/2019 11:38 AM (H90.6) Not Available [facility] 4 03:06:11 Mixed conductiv e and sensorine ural hearing loss of right ear 80241590788 105 Active 2018 Mixed conductiv e and sensorine ural hearing loss, unilatera l, right ear with restricte d hearing on the contralat eral side; Note: Date Diagnosed : 09/06/2018 10:33 AM (H90.A31) Not Available [facility] 4 03:06:11 Bilateral disorder of Eustachia n tubes 03945698517 54669 Active 2019 Other specified disorders of Eustachia n tube, bilateral ; Note: Date Diagnosed : 04/11/2019 10:17 AM (H69.83) Not Available [facility] 4 03:06:09 Chronic serous otitis media of right ear 099482667 Active 2023 ALEE HESS MD [address] [facility],[place] [address], [place], [address] , [place] - [facility] 4 09:05:26 Sensorine ural hearing loss of bilateral ears 755951150 Active 2023 ISSAC PALACIO, [facility] [address] [facility],[place] [address], [place], [address] , [facility] - [facility] 13:45:48 Problem Notes None recorded. Procedures Surgical History Date Name Laterality Status Provider Name and Address Organization Details Recorded Time 4 Air & Speech Audio with Tymps - 31903, 19059 & 43445 completed ISSAC PALACIO [facility] [address] [facility],[place] [address], [place], [address], [facility] - [facility] 12/28/2023 13:45:03 Myringotomy w/Placement of Tube right completed ALEE HESS MD [address] [facility],[place] [address], [place], [address], [facility] - [facility] 11/22/2023 10:11:03 Comp Audio with Tymps - 43543 & 19516 completed DOM JEFFERSON [facility] [address] [facility],[place] [address], [place], [address], [place] - [facility] 10/21/2023 09:56:25 Imaging Results Imaging Date Name Status LastModified by Organ [facility] Details LastModified Time 10/21/2023 audiogram completed [email or web address] Information n ot available 10/21/2023 13:25:24 05/23/2019 [...] not available 11/09/2023 02:02:47 12/29/2023 audiogram completed [email or web address] Information n ot available 12/29/2023 12:12:11 Procedure Notes None recorded. Medical Equipment None Reported. Medications Name Sig Start Date Stop Date Status Note LastModified by Organization Details LastModified Time atorvasta tin 40 mg tablet TAKE 1 TABLET BY MOUTH DAILY. active Not Available Not Available No t Available cetirizin e 10 mg tablet 07/24 completed Medicati on ID: [id number] D uration Value: 30 Brand Name: cetirizi ne Send Method: E-Prescr ibed Sub s Allowed: subs OK Speci al Instruct ion: TAKE ONE TABLET BY MOUTH AT BEDTIME NEEDED FOR ALLERGIE S Medica tionGene ricName: cetirizi ne Not Available Not Available Not Available azithromy akt 250 mg tablet TAKE 2 TABLETS ON [...] both nostrils 2019 active Medicati on ID: [id number] D uration Value: 30 Prescri bed By [...] Century Vitamin 2018 active Medicati on ID: [id number] B rand Name: century vitamin Send Method: E-Prescr ibed Sub s Allowed: subs OK Medic ationGen ericName : century vitamin Not Available Not Available Not Available June-estelita 8.6 mg tablet 07/24 completed Medicati on ID: [id number] B rand Name: June-estelita Send Method: E-Prescr [...] Updated DateTime 07/24/2024 162.56 cm 29.2 kg/m2 28422.7 g PAUL KING [place] - [facility] 07/24/2024 13:42:23 Date Recorded Body height Body mass index (BMI) Body weight Provider Name and Address Organization Details Last Updated DateTime 10/21/2023 162.56 cm 29.2 kg/m2 29075.7 g Cam Stubbs [facility] 10/21/2023 09:13:10 Date Recorded Body height Body mass index (BMI) Body weight Provider Name and Address Organization Details Last Updated DateTime 11/24/2023 162.56 cm 29.2 kg/m2 54151.7 g Shyanne Sadler [place] - [facility] 11/24/2023 10:30:47 Date Recorded Body height Body mass index (BMI) Body weight Provider Name and Address Organization Details Last Updated DateTime 12/28/2023 162.56 cm 28.7 kg/m2 44722.93 g Shyanne Sadler [facility] 12/28/2023 14:07:51 Social History None recorded. Functional Status None recorded. Mental Status None recorded. Family History Nothing Reported. Medical History No medical history recorded. Past Encounters Encounter ID Performer Location Encounter Start Date Encounter Closed Date Diagnosis/Indication Diagnosis SNOMED-CT Code Diagnosis ICD10 Code Diagnosis Note [id number] PA-C [facility] [address] [address] 10/21/2023 08:46:53 10/21/2023 10:12:46 Bilateral chronic serous otitis 890197154 H65.23 Bilateral disorder of Eustachian tubes 7881021022 939475 H69.83 [id number] NOAH ROSEN [facility] [address] [address] 10/21/2023 09:56:05 10/25/2023 07:12:55 Mixed conductive and sensorineural hearing loss of right ear 4929481184 9105 H90.A31 Sensorineu ral hearing loss in left ear 2099588464 9109 H90.A22 Audiologic al evaluation results: Right [...] Cou ld not maintain a hermetic seal}} [id number] ALEE HESS MD [facility] [address] [address] 11/24/2023 10:23:04 11/24/2023 11:04:34 Chronic serous otitis media of right ear 544225669 H65.21 ALEE HESS MD [facility] [address] [address] 12/28/2023 13:20:30 12/28/2023 14:23:26 Chronic serous otitis media of right ear 162263109 H65.21 NOAH CARVAJAL [facility] [address] [address] 12/28/2023 13:44:26 12/29/2023 07:28:34 Sensorineural hearing loss of bilateral ears 879315984 H90.3 Audiologic al evaluation results:Ri t ear:{{Norm [...] last visit. Ears are now symmetrica l. [id number] ALEE HESS MD [facility] [address] [place] [address] 07/24/2024 13:36:19 07/24/2024 13:54:39 Chronic serous otitis media of right ear 669022976 H65.21 Health Concerns Section Related Observation LastModified by Organization Detai ls LastModified Time None Recorded Concern Status LastModified by Organization Details LastModified Time None Recorded Advance Directives Directive None Recorded Payers Insurance Date Sequence Insurance Name Policy Number Policy Duque Covered Member ID Duque Member ID Guarantor Name 07/23/2024 1 [place] [employer] Lobito Novak [place] [id number] Lobito B Boisson[place]ault 07/25/2024 2 [place] [employer] 104 Lobito B Boissonnault [id number] Lobito B Boissonnault Notes Date Note Type Note Provider Name and Address Organization Details Recorded Time 10/21/2023 text/html 82-year-old male with history of recurrent effusion of the right ear presents for reevaluation. Had RMT in office about a year ago but feels his tube has come out. Cannot hear much out of the right side. ALEE HESS MD [address] [place] [address],[place] [address], [place], [address], [facility] - [facility] 10/21/2023 17:28:10 11/24/2023 text/html prev hx of right MT with Dr Moss12/31/22 - Right myringotomy tube, Yolie nasopharynx exam 06/2020 - benignnow tube is out and he feels hearing is worse on right. left side is OK PV 10/21/23: Deon noted right serous effusion retired from [employer]. 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
--- OUTSIDE RECORDS SUMMARY | 2024-08-04 11:21 | XMS_ITS ---
Demographics Address [address] [address] [place] [address] Mobile Email Address Preferred Language Unknown Marital Status Adventism Affiliation Unknown Race Unknown Ethnic Group Unknown Author Name [facility] [place] [facility] [facility] [place] Address [address] [place] [address] Care Team Providers Care Conference Services Coordinator Name Role Phone DIANNE JOSHUA Primary Care [...] Duque's Name Patient's Relationship to Policy Duque [facility] [employer] PREFERRED PROVIDER ORGANIZAT ION (PPO) STAND ELISABETH INDIV IDUAL Mar [birth year], 2010 [id number] [place] PATIENT MEDICARE (WNR) MEDICARE (M) PART A Nov 19, 2005 PART A [id number] [place] PATIENT MEDICARE (WNR) MEDICARE (M) PART B Nov 19, 2005 PART B [id number] [place] PATIENT Selected Encounter This section includes the information on record at [place] for the Encounter. Date/Time Encounter Type Encounter Description Reason Provider Source August 01, 2024 09:30 AM OFFICE O/P EST LOW 20 MIN PRIMARY CARE/MEDICINE ICD-10-CM H54.7 Unspecified visual loss DIANNE JOSHUA IHE Encounter Template Text not used by [facility] Assessments - Encounter Diagnoses This section includes the primary and secondary diagnoses documented for the Encounter. Date/Time Primary/Secondary Diagnosis Diagnosis Name Provider Source August 01, 2024 09:43 AM PRIMARY Unspecified visual loss DIANNE JOSHUA [facility] Plan of Treatment: Future Appointments (+ 6 months) and Future Tests (+/- 45 days) The Plan of Treatment section includes future care activities for the patient from all [place] treatmentfacilities. This section includes future appointments and future orders which are active, pending or scheduled. Future Appointments This section includes appointments that were scheduled to occur 6 months from the date of the Encounter, up to a maximum of 20 appointments. The data comes from all [place] treatment facilities. Appointment Date/Time Appointment Type Appointme nt Facility Name Dec 19, 2024 09:00 AM AMBULATORY - MEDICINE [facility] Vital Signs: All taken on the encounter date This section contains inpatient and outpatient Vital Signs collected on the date of the Encounter. Date/Time Temperature Pulse Blood Pressure Respiratory Rate SP02 Pain Height Weight Body Mass Index Source August 01, 2024 09:12 AM 97.8 68 132/60 16 97 0 64 177 30 [facility] Social History: Smoking Status (Most current) and Tobacco Use (All prior to encounter date) This section includes the most current, and the historical, smoking and tobacco- related health factors from the [place] facility where the Encounter took place. Current Smoking Status This section includes the most current smoking, or tobacco-related health factor, from the [place] facility where the Encounter took place. Date/Time Current Smoking Status Comment Facil ity August 01, 2024 09:30 AM [place]-TOBACCO USE FOR DEWEY CIGARETTES [facility] Tobacco Use History This section includes a history of the smoking, or tobacco-related health factors, that were collected on or before the date of the Encounter. The data comes from the [place] facility where the Encounter took place. Date/Time Smoking Status/Tobacco Use Comment F acility August 01, 2024 09:30 AM MO-TOBACCO USE FOR DEWEY CIGARETTES [facility] August 03, 2023 09:00 AM VA-TOBACCO FORMER USER [facility] August 03, 2023 09:00 AM VA-TOBACCO QUIT 15 YRS OR MORE [place] [facility] [place] [facility] August 03, 2022 09:00 AM VA-TOBACCO FORMER USER [place] [facility] [place] [facility] August 03, 2022 09:00 AM VA-TOBACCO QUIT 15 YRS OR MORE [place] [facility] [place] [facility] Encounter Notes: All associated encounter notes This section contains the clinical notes associated to the Encounter. Date/Time Encounter Note(s) Provider Source August 01, 2024 09:38 AM PHYSICIAN NOTE: LOCAL TITLE: MD NOTE STANDARD TITLE: PHYSICIAN NOTE DATE OF NOTE: AUGUST 01, 2024@09:38 ENTRY DATE: AUGUST 01, 2024@09:38:26 AUTHOR: DIANNE JOSHUA EXP COSIGNER: URGENCY: STATUS: COMPLETED Patient Name: DAMON JOHNSON VITALS: Patient temperature: 97.8 F [36.6 C] (08/01/2024 09:12) Blood pressure: 132/60 (08/01/2024 09:12) Patient height: 64 in [162.6 cm] (08/01/2024 09:12) Patient weight: 177 lb [80.29 kg] (08/01/2024 09:12) Patient BMI: BMI: 30.4 Patient pulse: 68 (08/01/2024 09:12) Patient respiration: 16 (08/01/2024 09:12) Patient Pulse Oximetry: 97% (08/01/2024 09:12) Pain Ratin (08/01/2024 09:12) Active VA Medications: Active Outpatient Medications (including Supplies): Active Non-VA Medications Status === 1) Non-VA AMLODIPINE BESYLATE TAB BY MOUTH ACTIVE 2) Non-VA ASPIRIN 81MG EC TAB 81MG BY MOUTH ACTIVE 3) Non-VA ATORVASTATIN CALCIUM 80MG TAB 80MG BY MOUTH AT ACTIVE BEDTIME 4) Non-VA LISINOPRIL TAB BY MOUTH ACTIVE 5) Non-VA METOPROLOL SUCCINATE TAB,SA BY MOUTH ACTIVE 6) Non-VA TAMSULOSIN (1ST LINE ALPHA SUE) CAP,ORAL BY MOUTH ACTIVE Remote Medications: No Active Remote Medications for this patient manager food safety note Chief complaint: Decreased vision all primary care from private Dr. Alaniz ny for optometry and audiology History of present illness patient wears eyeglasses for decreased vision. He feels well today with no complaints. He is content with his present eyeglasses Physical examination Well-developed well-nourished male in no acute distress Extraocular muscles intact, perrla, fundi normal Assessment and plan: 1. Decreased vision: Followed by optometry Plan: Continue above Follow-up 1 year Patient declined all vaccines today Medication Reconciliation: Outpatient: Has the patient been taking medications as documented in the EMLR? YES: The patient has been taking medications as documented in the EMLR. Essential Medication List for Review used to complete this medication reconciliation. INCLUDED IN THIS LIST: Alphabetical list of active outpatient prescriptions dispensed from this [place] (local) and dispensed from another [place] or [facility] facility (remote) as well as inpatient orders [...] VA or non-VA provider. Pneumococcal Conjugate Vaccine (PCV15/PCV20/PCV21): Refuses PCV vaccine Immunization: PNEUMOCOCCAL CONJUGATE, UNSPECIFIED FORMULATION Refusal Reason: PATIENT DECISION Patient refuses all immunization(s) in the PneumoPCV group Date Documented: 08/01/24 09:42 Tdap Immunization: The patient declines to receive the recommended dose of Tdap vaccine. Immunization: TDAP Refusal Reason: PATIENT DECISION Patient refuses all immunization(s) in the TDAP group Date Documented: 08/01/24 09:42 COVID-19 Immunization: Refused Moderna Monovalent COVID-19 vaccine Immunization: COVID-19 (MODERNA), MRNA, LNP-S, PF, 50 MCG/0.5 ML (AGES 12+ YEARS) Refusal Reason: PATIENT DECISION Patient refuses all immunization(s) in the COVID-19 group Date Documented: 08/01/24 09:42 Herpes Zoster (Shingles) Vaccine: The patient declines to receive the recommended dose of zoster (shingles) vaccine. Immunization: ZOSTER RECOMBINANT Refusal Reason: PATIENT DECISION Patient refuses all immunization(s) in the ZOSTER group Date Documented: 08/01/24 09:43 /mia/ Dianne Joshua MD Staff Physician Signed: 08/01/2024 09:43 DIANNE JOSHUA [place] [facility] [place] [facility] August 01, 2024 09:17 AM PREVENTIVE MEDICIN E NURSING NOTE: LOCAL TITLE: CLINICAL REMINDERS/NURSING STANDARD TITLE: PREVENTIVE MEDICINE NURSING NOTE DATE OF NOTE: AUGUST 01, 2024@09:17 ENTRY DATE: AUGUST 01, 2024@09:17:03 AUTHOR: JENNIFER MCGREGOR EXP COSIGNER: URGENCY: STATUS: COMPLETED Homelessness/Food Insecurity Screen: In the past 2 months, have you been living in stable housing that you own, rent, or stay in as part of a household? Yes - Living in stable housing. Are you worried or concerned that in the next 2 months you may NOT have stable housing that you own, rent, or stay in as part of a household? No - Not worried about housing near future The reports the following: Within the past 12 months, you worried whether your food would run out before you got money to buy more. Never true Within the past 12 months, the food you bought just didn't last and you didn't have money to get more. Never true Depression Screening: Perform PHQ-2 A PHQ-2 screen was performed. The score was 2 which is a negative screen for depression. Over the past two weeks, how often have you been bothered by the following problems? 1. Little interest or pleasure in doing things Several days 2. Feeling down, depressed, or hopeless Several days Suicide Screen: C-SSRS Screening Posey Suicide Severity Rating Scale (C-SSRS) screener 1. [...] required due to responses to other questions. Falls & Incontinence Screen: Falls Screen: 4. No falls within the past year. Incontinence Screen No incontinence. Tobacco Use Screening: The patient is a former cigarette smoker. The patient has never used other types of tobacco. Alcohol Use Screen (AUDIT-C): Alcohol Screen: SCREEN [...] their sexual orientation as: Straight or Heterosexual RHS Screen: RHS Screen Session Format: Face to Face Environmental Check Upon inquiry, the individual reports that the environment is safe to proceed. Informed Consent to Screen and Document The individual consents to proceed with screening. The individual consents to documentation of responses. PRIMARY SCREEN: In the past 12 months, how often did a current or former intimate partner (e.g., boyfriend, girlfriend, , , sexual partner): 1. Scream or curse at you Never 2. Insult or talk down to you Never 3. Threaten you with harm Never 4. Physically hurt you Never 5. Force or pressure you to have sexual contact against your will, or when you were unable to say no Never ?? The HITS tool (items 1-4 above) is [place] copyright protected by Eric Yeboah MD, and the user has full rights to use it throughout the [place] system. PRIMARY SCREEN RESULT: The Primary Screen is NEGATIVE. The individual answered never to all forms of IPV above (i.e., answered never to all 5 items) The individual accepts education and/or resources: Other: n/a EDUCATION: Other: n/a Advance Directive Screen MH AD: Patient has an up-to-date Advance Directive at an outside, non-va facility and was asked to forward a copy to his/her clinician. Comment: will get a copy to this [place] /mia/ JENNIFER MCGREGOR LPN LPN Signed: 08/01/2024 09:24 JENNIFER MCGREGOR [place] [facility]
--- NOTE | 2024-08-04 11:34 | ED_ITS ---
HPI - General Adult General Chief complaint: General Medical Stated complaint: LOSS OF APPETITE X1M PER EMS Time Seen by Provider: 08/04/24 11:33 Source: patient Mode of arrival: ambulatory Limitations: no limitations History of Present Illness ED Provider: Dr. Jarod Ariza HPI narrative: 83-year-old male with a history of AZ, BPH, hypertension, hyperlipidemia, coronary disease, chronic kidney disease, peripheral vascular disease, bilateral peripheral edema, left upper lobe lung mass who presents emergency department for evaluation of worsening fatigue. Patient has had fatigue for proximally 6 weeks. He states he also has had a decreased appetite. The patient woke up this morning at 08:30 hours. He states that after about 5 minutes of walking around he was extremely fatigued and had to get back in bed. Patient states that due to his decreased appetite he has not been eating well but he has been drinking fluid. The patient states that his family was very concerned about his weakness therefore the patient came to the emergency department by ambulance for evaluation. The patient was seen on 07/22/2024 in the emergency department with similar fatigue and weakness. 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 Patient has followed up with Dr. Orellana on 07/31/2024 and she has ordered a CT scan-guided left upper lobe lung biopsy by IR, PET scan for staging, MRI of the brain. Related Data Home Medications ?Medication ?Instructions ?Recorded ?Confirmed hhayasmj-va-iyaip 300 mcg-K 60 1 tab PO DAILY 06/17/21 07/31/24 mcg-lycop 600 mcg-lutein 300 mcg tablet (Centrum Silver Men) cholecalciferol (vitamin D3) 125 125 mcg PO DAILY 12/22/22 07/31/24 mcg (5,000 unit) capsule finasteride 5 mg tablet 5 mg PO DAILY 07/14/23 07/31/24 Previous Rx's ?Medication ?Instructions ?Recorded blood pressure monitor #1 ea 02/26/20 docusate sodium 100 mg capsule 100 mg PO DAILY PRN constipation 11/13/23 (Colace) #90 caps tamsulosin 0.4 mg capsule 0.4 mg PO BEDTIME #90 caps 06/18/24 amlodipine 5 mg tablet 5 mg PO DAILY #90 tabs 06/26/24 aspirin 81 mg tablet,delayed 81 mg PO DAILY #90 tabs 06/26/24 release (Adult Low Dose Aspirin) atorvastatin 40 mg tablet 40 mg PO DAILY #90 tabs 06/26/24 metoprolol succinate 100 mg 100 mg PO DAILY #90 tabs 06/26/24 tablet,extended release 24 hr lisinopril 20 mg tablet 20 mg PO DAILY #90 tabs 07/13/24 Allergies Allergy/AdvReac Type Severity Reaction Status Date / Time No Known Allergies Allergy Verified 08/05/24 01:37 [No Known Allergies*] Review of Systems 2 Review of Systems: Yes all other systems are reviewed and are negative [facility] Past Medical History [facility] Narrative: Social history: The patient in his a former smoker quit smoking 30 years prior, he states that he smoked for at least 40 years. He drinks 2 glasses of wine per day. He denies drug use. Medical History Bilateral carotid artery stenosis Sinus bradycardia Gallstone CKD (chronic kidney disease) stage 2, GFR 60-89 ml/min Diverticulosis History of DVT of lower extremity Former smoker, stopped smoking in distant past Hx of myocardial infarction CAD (coronary artery disease) Hyperkalemia Benign prostatic hyperplasia PVD (peripheral vascular disease) Essential hypertension Dyslipidemia Surgical History Status post insertion of iliac artery stent Family History Family History Father Heart problem Substance use disorder Mother Heart problem Social History Social History Household Members: None Housing: Apartment Are you a primary child care associate teacher to a significant other at home: No Do you presently have visiting nurse or other home services: No Alcohol intake: current Alcohol intake frequency: 0-2 drinks per day Alcohol type: wine Patient Tobacco Use Status: Former Tobacco user e-Cigarette/Vaping Use: Never Used service: No Current occupational status: retired Cognitive needs: No Hearing needs: No Vision needs: Yes Physical Exam ED Vital Signs: Vital Signs - 24 hr 08/04/24 10:51 08/04/24 14:14 08/04/24 14:16 Temperature 98.0 F 97.3 F 97.3 F Pulse Rate 65 65 65 Respiratory Rate 18 16 16 Blood Pressure 117/43 L 126/53 L 126/53 L Pulse Oximetry 96 97 97 Oxygen Delivery Method Room Air Room Air Room Air BMI result Body Mass Index 29.2 Vital signs were normal Exam: General: Awake, alert in no distress Head: Normocephalic, atraumatic EENT: PERRL, Lids normal, sclera normal, conjunctiva normal, nose normal , ears normal, throat without erythema or exudates Neck: Supple, no adenopathy Lung: breath sounds symmetric, no wheezing, rales or rhonchi Chest: symmetric movement, nontender Heart: regular rate and rhythm, normal S1, S2 no murmurs or rubs Abdomen: soft, non-tender, nondistended, normal bowel sounds Back: no vertebral tenderness, no CVAT Extremities: no deformities, moves all extremities symmetrically, patient is wearing compression stockings, he has trace to 1+ pitting edema which are bilaterally symmetric Neuro: Awake, alert, oriented, normal speech, cranial nerves intact, patient has symmetric weakness of both upper and lower extremities, moves all extremities symmetrically Psych: Pleasant, cooperative Medical Decision Making Medical Decision Making MDM Narrative: 83-year-old male with a history of AZ, BPH, hypertension, hyperlipidemia, coronary disease, chronic kidney disease, peripheral vascular disease, bilateral peripheral edema, left upper lobe lung mass who presents emergency department for evaluation of worsening fatigue. Patient has had fatigue for proximally 6 weeks. He states he also has had a decreased appetite. The patient woke up this morning at 08:30 hours. He states that after about 5 minutes of walking around he was extremely fatigued and had to get back in bed. Patient states that due to his decreased appetite he has not been eating well but he has been drinking fluid. The patient states that his family was very concerned about his weakness therefore the patient came to the emergency department by ambulance for evaluation. Vital signs were normal. Physical examination did reveal symmetric weakness of both the upper and lower extremities and trace to 1+ pitting edema of the lower extremities, exam was otherwise was unremarkable Differential diagnosis: ?Includes but is not limited to paraneoplastic syndrome, anemia, electrolyte abnormalities, myocardial infarction, myocardial ischemia, rhabdomyolysis, urinary tract infection, COVID-19, influenza, RSV Course: 14:00 My interpretation patient's laboratory evaluation is as follows: WBC elevated 12,200. Normocytic anemia with an H&H of 13.3 and 38.3 with an MCV of 92.1- unchange from 07/22/2024. CMP revealed an elevated BUN of 27 with a normal creatinine of 1.10. LFTs were normal. BNP elevated 165. COVID-19, influenza and RSV were negative. CK was normal. Urinalysis was negative. 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 Patient states that he is able to walk and he is able to drink protein shakes. At this time I do not think that the patient needs to be hospitalized. He does have several tests scheduled for this week including a IR biopsy of the tumor and a follow-up appointment with Dr. Orellana. The patient is comfortable going home at this time and I did tell him that he should return to the emergency department if his symptoms get worse or if he developed any symptoms that are concerning to him. Admission/Observation Consideration of admission/observation: Escalation of care including admission/observation considered (Yes) Lab Data MDM Lab Attestation statement: I reviewed the patient's lab results. 08/04/24 12:30 08/04/24 12:30 Labs: Lab Results 08/04/24 08/04/24 Range/Units 12:30 12:42 WBC 12.2 H (4.8-10.8) X10*3/uL RBC 4.16 L (4.60-5.80) X10*6/uL Hgb 13.3 L (14.0-18.0) g/dl Hct 38.3 L (42.0-52.0) % MCV 92.1 (80.0-98.0) fL MCH 32.0 (27.0-33.0) pg MCHC 34.7 (31.0-36.0) g/dl RDW 11.9 (11.0-16.0) % Plt Count 326 (160-400) X10*3/uL MPV 9.5 (9.4-12.4) fL Immature Gran % (Auto) 0.5 H (0.0-0.4) % Neut % (Auto) 60.3 (45-73) % Lymph % (Auto) 23.9 (20-40) % Flagler % (Auto) 13.9 H (2-11) % Eos % (Auto) 1.2 (0-4) % Baso % (Auto) 0.2 (0-2) % Lymph # (Auto) 2.9 (1.2-4.9) X10*3/uL Flagler # (Auto) 1.7 H (0.1-1.2) X10*3/uL Eos # (Auto) 0.2 (0.0-0.4) X10*3/uL Baso # (Auto) 0.0 (0.0-0.2) X10*3/uL Abs Immat Gran (auto) 0.06 H (0.00-0.03) X10*3/uL Absolute Neuts (auto) 7.4 (2.0-8.3) x10*3/uL Absolute Nucleated RBC 0.000 (0.0-0.012) X10*3/uL Nucleated RBC % (auto) 0.0 (0.0-0.2) /100WBC Smear Tech's Comments VERIFIED Sodium 137 (135-145) mmol/L Potassium 4.6 (3.3-5.1) mmol/L Chloride 108 (96-108) mmol/L Carbon Dioxide 22 (22-29) mmol/L Anion Gap 12 (12-20) BUN 27 H (9-16) mg/dL Creatinine 1.10 (0.5-1.4) mg/dL Estim Creat Clear Calc 47.7 Estimated GFR > 60 Random Glucose 101 (60-115) mg/dL Calcium 8.9 (8.4-10.2) mg/dL Magnesium 2.1 (1.6-2.6) mg/dL Total Bilirubin 0.9 (0.0-1.0) mg/dL AST 32 (5-37) U/L ALT 35 (0-40) U/L Alkaline Phosphatase 64 (39-117) U/L Total Creatine Kinase 46 (38-174) U/L Troponin I High Sens 3.8 (<3.5-35.0) ng/L B-Natriuretic Peptide 165 H (<100) pg/mL Total Protein 6.2 L (6.5-8.0) g/dL Albumin 3.2 L (3.5-5.0) g/dL Lipase 36 (8-78) U/L TSH 3.72 (0.32-4.0) uIU/mL Urine Color Yellow Urine Appearance Clear Urine pH 6.5 (5.0-9.0) Ur Specific Cord 1.010 (1.005-1.025) Urine Protein Negative (Neg-Trace) mg/dL Urine Glucose (UA) Negative (Negative) mg/dL Urine Ketones Negative (Negative) mg/dL Urine Blood Negative (Negative) Urine Nitrite Negative (Negative) Ur Leukocyte Esterase Negative (Negative) Influenza Type A (PCR) NEGATIVE (Negative) Influenza Type B (PCR) NEGATIVE (Negative) RSV RNA Qual (PCR) NEGATIVE (Negative) SARS-CoV-2 RNA (RT-PCR) NEGATIVE (Negative) Independent Interpretation I performed an independent interpretation of an: Plain X-Ray Interpretation: My independent interpretation patient's chest x-ray is as follows: Left upper lobe mass Radiology Impression Discussion of test interpretation with radiology: I have reviewed the radiologist's reading. Radiologist Impression: 2 view chest x-ray Comparison: CT/[place]/SR - CT CHEST W IV CON - 07/22/24 13:29 EDT CR - XR CHEST 2V - 07/22/24 12:18 EDT Findings: There is a left upper lobe mass without change. 1.3 cm faint nodular focus within the right mid lung without change. No pleural effusion. Heart size is normal. No acute fracture. 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 Additional 1.3 cm nodular focus within the right mid lung without change, also potentially secondary to neoplasm. This document has been electronically signed by: Cindy Gutierrez MD on 08/04/2024 13:28:05 Chronic Conditions Patient?s care impacted by: Hypertension Discharge Plan Discharge Clinical Impression: Fatigue, Decrease in appetite Patient Disposition: Home, Self-Care Additional Instructions: Your blood work was unchanged from 07/22/2024 and there were no significant abnormalities to explain your fatigue and loss of appetite. Your urine was negative for urine infection. Your COVID-19, influenza and RSV tests were negative. The chest x-ray is unchanged from 07/22/2024, no change in the size of the left upper lobe mass and there is no evidence for pneumonia. At this time I do not have a clear cause for your fatigue and I believe it may be related to the mass in your lung. Make sure you do not miss any of the schedule tests next week and when you see Dr. Orellana you can ask her if she thinks you have a paraneoplastic syndrome as the cause of your weakness. Follow-up with your doctor in 2 days. Please return to the emergency department if your symptoms get worse or if you develop any symptoms that are concerning to you. Prescriptions: No Action (DME) blood pressure monitor Kit See Rx Instructions .ROUTE .MEDSUPPLY Qty: 1 0RF Rx Instructions: Check blood pressure as directed docusate sodium [Colace] 100 mg capsule 100 mg PO DAILY PRN (Reason: constipation) Qty: 90 1RF tamsulosin 0.4 mg capsule 0.4 mg PO BEDTIME Qty: 90 1RF amlodipine 5 mg tablet 5 mg PO DAILY Qty: 90 1RF aspirin [Adult Low Dose Aspirin] 81 mg tablet,delayed release (DR/EC) 81 mg PO DAILY Qty: 90 1RF metoprolol succinate 100 mg tablet extended release 24 hr 100 mg PO DAILY Qty: 90 1RF atorvastatin 40 mg tablet 40 mg PO DAILY Qty: 90 1RF lisinopril 20 mg tablet 20 mg PO DAILY Qty: 90 3RF Centrum Silver Men 300-600-300 mcg tablet 1 tab PO DAILY finasteride 5 mg tablet 5 mg PO DAILY cholecalciferol (vitamin D3) 125 mcg (5,000 unit) capsule 125 mcg PO DAILY Interventions: ED Discharge Assessment Last Done: 08/04/24 14:16 Discharge Date/Time: 08/04/24 14:24 Print Language: Colombian
[2024-08-04 12:51] LABS: Basophils Percent Auto 0.2 % (0-2); Eosinophils Absolute Auto 0.2 X10*3/uL (0.0-0.4); Eosinophils Percent Auto 1.2 % (0-4); Hematocrit 38.3 % (42.0-52.0); Hemoglobin 13.3 g/dl (14.0-18.0); Imm Gran Abs Auto 0.06 X10*3/uL (0.00-0.03); Imm Gran Pct Auto 0.5 % (0.0-0.4); Lymphocytes Absolute Auto 2.9 X10*3/uL (1.2-4.9); Lymphocytes Percent Auto 23.9 % (20-40); MANUAL DIFF FLAG SCAN; Mean Corpuscular HGB Conc 34.7 g/dl (31.0-36.0); Mean Corpuscular Volume 92.1 fL (80.0-98.0); Mean Platelet Volume 9.5 fL (9.4-12.4); Monocytes Absolute Auto 1.7 X10*3/uL (0.1-1.2); Monocytes Percent Auto 13.9 % (2-11); Neutrophils Absolute Auto 7.4 x10*3/uL (2.0-8.3); Neutrophils Percent Auto 60.3 % (45-73); Platelet Count 326 X10*3/uL (160-400); Red Blood Count 4.16 X10*6/uL (4.60-5.80); Red Cell Distribution Width 11.9 % (11.0-16.0); SCAN SMEAR FLAG 1; White Blood Count 12.2 X10*3/uL (4.8-10.8)
[2024-08-04 12:52] LABS: Appearance Urine Clear; Color Urine Yellow; Glucose Urine UA Negative (Negative); Leukocyte Esterase Urine Negative (Negative); Nitrite Urine Negative (Negative); PH 6.5 (5.0-9.0); Urine Blood Negative (Negative); Urine Ketones Negative (Negative); Urine Protein Negative (Neg-Trace)
[2024-08-04 12:57] LABS: B Type Natriuretic Peptide 165 pg/mL (<100)
[2024-08-04 13:01] LABS: Alanine Aminotransferase 35 U/L (0-40); Albumin Level 3.2 g/dL (3.5-5.0); Alkaline Phosphatase 64 U/L (39-117); Anion Gap 12 (12-20); Aspartate Amino Transferase 32 U/L (5-37); Bilirubin Total 0.9 mg/dL (0.0-1.0); Blood Urea Nitrogen 27 mg/dL (9-16); Calcium 8.9 mg/dL (8.4-10.2); Carbon Dioxide 22 mmol/L (22-29); Chloride 108 mmol/L (96-108); Creatinine Clr Calc Pharmacy 47.7; Estimated Glomerular Filt Rate > 60; Glucose Random 101 mg/dL (60-115); Lipase 36 U/L (8-78); Magnesium 2.1 mg/dL (1.6-2.6); Potassium 4.6 mmol/L (3.3-5.1); Sodium 137 mmol/L (135-145); Total Protein 6.2 g/dL (6.5-8.0); Troponin-I High Sensitivity 3.8 ng/L (<3.5-35.0)
[2024-08-04 13:11] LABS: SLIDE REVIEW VERIFIED
[2024-08-04 13:15] LABS: TSH reflex Free T4 3.72 uIU/mL (0.32-4.0)
[2024-08-04 13:32] LABS: Influenza A PCR NEGATIVE (Negative); Influenza B PCR NEGATIVE (Negative); Resp Syncy Virus RNA Qual PCR NEGATIVE (Negative); SARS COV2 PCR INHOUSE NEGATIVE (Negative)
[2024-08-04 14:14] VITALS: BP 126/53; PULSE 65; RESP 16; TEMP 36.3; O2SAT 97
[2024-08-04 14:16] VITALS: BP 126/53; PULSE 65; RESP 16; TEMP 36.3; O2SAT 97
== END 2024-08-04 14:24 | disposition home or self-care (01) ==
PROVIDERS: Emergency Provider Emergency Medicine Emergency Medical Services; PCP Internal Medicine
DX: R53.1 Weakness (principal); R53.83 Other fatigue; I12.9 Hypertensive chronic kidney disease with stage 1 through stage 4 chronic kidney disease, or unspecified chronic kidney disease; N18.2 Chronic kidney disease, stage 2 (mild); I25.10 Atherosclerotic heart disease of native coronary artery without angina pectoris; Z03.818 Encounter for observation for suspected exposure to other biological agents ruled out
CPT/HCPCS: 0241U; 36415; 71046; 80053; 81003; 82550; 83690; 83735; 83880; 84443; 84484; 85025; 99283; 99284

== ENCOUNTER → 2024-08-04 12:12 | Outpatient (BNV) | payer MEDICARE, BC, SELFPAY | PROVIDERS: Emergency Provider Emergency Medicine Emergency Medical Services; PCP Internal Medicine; Visit Provider Radiology Diagnostic Radiology | DX: R91.1 Solitary pulmonary nodule (principal) | CPT/HCPCS: 71046 ==

== ENCOUNTER → 2024-08-07 10:52 | Outpatient (BNV) | payer MEDICARE, BC, SELFPAY | PROVIDERS: Visit Provider Radiology Diagnostic Radiology | DX: R90.89 Other abnormal findings on diagnostic imaging of central nervous system (principal) | CPT/HCPCS: 70553 ==

== ENCOUNTER 2024-08-07 11:14 | Outpatient (REF) | payer MEDICARE, BC, SELFPAY ==
--- NOTE | ~2024-08-07 | MR_ITS ---
EXAMINATION: MR BRAIN WITHOUT AND WITH CONTRAST CLINICAL INFORMATION: Initial staging of lung cancer. COMPARISON: No prior MRI. CT head 06/04/2022. TECHNIQUE: Multiplanar, multisequence MRI of the brain was obtained before and after the intravenous administration of 8 mL Gadavist. Examination performed on a 1.5 Marti Siemens high-field unit. FINDINGS: There is no diffusion restriction. There is no intracranial hemorrhage, acute infarction, mass effect, or edema. Ventricles, sulci, and cisterns are somewhat diffusely prominent, in keeping with age-appropriate involutional changes. No shift of midline. No abnormal hemosiderin deposition is identified. There are a few scattered punctate foci of white matter T2 hyperintensity in the periventricular, subcortical, and hemispheric deep white matter. These are nonspecific but most likely represents small vessel ischemic changes. After the administration of contrast, there is no abnormal intra or extra-axial contrast enhancement. Midline structures appear normally formed. The pituitary gland appears normal. Posterior fossa structures appear normal. Cerebellar tonsils are appropriately located. Major flow voids are preserved within the skull base. The globes and orbital contents demonstrate no abnormalities. Paranasal sinuses are normally pneumatized. There are bilateral mastoid effusions and there is a right tympanic space effusion. The left tympanic space appears pneumatized. Extracranial soft tissues demonstrate no abnormalities. No suspicious bone marrow changes are evident. Atlantoaxial joint demonstrates moderate degenerative arthrosis. MR/MR head/brain wo/w con IMPRESSION: 1. No evidence of intracranial hemorrhage, acute infarction, mass effect, or edema. There is no abnormal intra or extra-axial contrast enhancement to suggest metastatic disease. 2. Age appropriate cerebral and cerebellar involutional changes. 3. Minimal changes of small vessel ischemia. 4. Bilateral mastoid effusions, and right tympanic space effusion. Electronically signed by: Jeremías Parra MD 08/07/2024 12:43 PM EDT
[2024-08-07] MEDS: gadobutroL 10 ML VIAL IVPUSH (11:53)
--- OUTSIDE RECORDS SUMMARY | 2024-08-07 12:31 | XMS_ITS | Continuity of Care Document ---
Demographics Address [address] [facility] [address] [place] [address] Home Phone Preferred Language en Marital Status Unknown Scientologist Affiliation Unknown Race Unknown Ethnic Group Unknown Author Name [facility] Organization [facility] Care Team Providers Care Hairspring Assembler Name Role Phone [facility] Unavailable Unavailable Problems Combined list of problems [...] BY MOUTH ORAL ACTIVE JODI VOSS 2020 [facility] ASPIRIN 81MG TAB,EC TAKE ONE TABLET BY MOUTH ORAL ACTIVE OLAF VOSSELISABETH Peraza 2020 [facility] ATORVASTATI N CA 80MG TAB TAKE ONE TABLET BY MOUTH AT BEDTIME ORAL ACTIVE MAYNOR BOCANEGRA 2024 [facility] LISINOPRIL TAB TAKE BY MOUTH ORAL ACTIVE SHANIKAJODI Stu 2020 [facility] METOPROLOL SUCCINATE TAB,SA TAKE BY MOUTH ORAL ACTIVE OSHINSLUISAJODI J 2020 [facility] TAMSULOSIN (1ST LINE ALPHA SUE) CAP,ORAL TAKE BY MOUTH ORAL ACTIVE OSJAJANSJODI MORAN Stu 2020 [facility] Immunizations Combined list of available immunizations from the Department of Defense and Veterans Affairs facilities. Immunization Series Date Given Administered By Site Reaction Lot Number CVX Code Drug Link Cutter Status Comments Source INFLUENZA, UNSPECIFIED FORMULATION 2022 88 complet ed Booster for Series, HISTORICA L INFORMATI ON - FROM OTHER PROVIDER, [facility] INFLUENZA, UNSPECIFIED FORMULATION 2021 88 complet ed HISTORICA L INFORMATI ON - SOURCE UNSPECIFI ED, [facility] COVID-19 (MODERNA), MRNA, LNP-S, PF, 100 MCG/0.5 ML DOSE 2 2020 207 complet ed MOD; [id number]; 1 [facility] COVID-19 (MODERNA), MRNA, LNP-S, PF, 100 MCG/0.5 ML DOSE 1 2020 207 complet ed MOD; [id number]; 1 [facility] FLU,3 YRS (HISTORICAL) 2001 88 complet [...] [facility] En[facility] [id number] 05/17 [facility] OFFICE O/P EST LOW 20 MIN 23464-4.63 [id number] Diagnos is: ICD-10- CM H53.30 Unspeci fied disorde r of binocul ar vision LUIZ BOCANEGRA RD D 08/02 [facility] [place] 1/ 25956-7.63 [id number] Diagnos is: ICD-10- CM 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, hole, or pseudoh ole, right eye MERARTHURANGELLA H B 12/13 [facility] CPTR OPHTH DX IMG POST SEGMT 55645-7.63 [id number] Diagnos is: ICD-10- CM 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, hole, or pseudoh ole, right eye MERARTHUR,ANGELLA H B 12/13 [facility] FIT SPECTACLES MONOFOCAL 43852-2.63 [id number] Diagnos is: ICD-10- CM Z46.0 Encount er for fit/adj st of spectac les and contact lenses ANGELLA ULRICH H B 12/13 [facility] OFFICE O/P EST LOW 20 MIN 24138-1.63 [id number] Diagnos is: ICD-10- CM H54.7 Unspeci fied visual loss LUIZ BOCANEGRA RD D 08/01 [facility] Social History Combined list of available smoking, tobacco, and other social history from Department of Defense and Veterans Affairs facilities. Social History Type Response Date Comment Sourc e Tobacco smoking status NHIS VA-TOBACCO USE FORMER CIGARETTES 08/01/2024 [facility] History of tobacco use VA-TOBACCO NEVER USED OTHER TYPE 08/01/2024 [facility] History of tobacco use VA-TOBACCO FORMER USER 08/03/2023 [facility] [place] History of tobacco use VA-TOBACCO FORMER USER 08/03/2022 [facility] History of tobacco use HISTORY OF SMOKING 07/05/2001 x 10yrs [facility] Plan of Care List of future care activities from Department of Veterans Affairs facilities. Additional future care activities may be listed in the Assessment and Plan section. Date/Time Care Activity Care Activity Detail Facili ty 12/19/2024 AMBULAT[facility] - MEDICINE [facility]
--- OUTSIDE RECORDS SUMMARY | 2024-08-07 12:31 | XMS_ITS | Data Portability ---
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 Procedures Surgical History Date Name Laterality Status Provider Name and Address Organization Details Recorded Time 5 JZShoulder INJ completed Trevor Pierce PA-C [address], [place], [address], [facility] 04/04/2024 13:40:34 4 JZShoulder INJ completed Trevor Pierce PA-C [address], [place], [address], [facility] 11/11/2023 10:36:06 Imaging Results [...] Updated DateTime 11/11/2023 162.56 cm 29.4 kg/m2 16186.3 g Casey Angel Stubbs N ew [facility] 11/11/2023 10:32:40 Date Recorded Body height Body mass index (BMI) Body weight Provider Name and Address Organization Details Last Updated DateTime 04/04/2024 162.56 cm 29.4 kg/m2 56606.3 g Casey Angel [facility] - [facility] 04/04/2024 13:31:10 Social History None recorded. Functional Status None recorded. Mental Status None recorded. Family History Nothing Reported. Medical History No medical history recorded. Past Encounters Encounter ID Performer Location Encounter Start Date Encounter Closed Date Diagnosis/Indication Diagnosis SNOMED-CT Code Diagnosis ICD10 Code Diagnosis Note [id number] [facility] [address] [place] [address] 11/11/2023 10:28:02 12/08/2023 15:04:20 Impingement syndrome of left shoulder region [id number] 28651 M75.42 [id number] [facility] Evelyne [facility] [address] [place] [address] 04/04/2024 13:22:11 04/16/2024 09:16:25 Impingement syndrome of left shoulder region [id number] 70932 M75.42 Health Concerns Section Related Observation LastModified by Organization Detai ls LastModified Time None Recorded Concern Status LastModified by Organization Details LastModified Time None Recorded Advance Directives Directive None Recorded Payers Encounter Date Sequence Insurance Name Policy Number Policy Duque Covered Member ID Duque Member ID Guarantor Name 11/11/2023 2 [place] 104 Lobito B Boissonnault [id number] Lobito B Boissonnault 11/11/2023 1 [place] Lobito B Boissonnault [id number] Lobito B Boissonnault 04/04/2024 2 [place] 104 Lobito B Boissonnault [id number] Lobito B Boissonnault 04/04/2024 1 [place] Lobito B Boissonnault [id number] Lobito B Boissonnault
--- OUTSIDE RECORDS SUMMARY | 2024-08-07 12:31 | XMS_ITS | Data Portability ---
Author Organization MD - [facility], Allergy Address [address] [address] Care Team Providers Care Junior Project Coordinator Name Role Phone FRANCISCO EDGAR Primary [...] and follow-up after for repeat hearing test. [email or web address] Not available 10/21/2023 10:24:24 11/24/2023 11/24/2023 Informed [...] ofloxacin 0.3 % ear drops 2023 024 [facility], [address] [place], [address], 11/24/2023 11:03:21 Patient TargetsNo targets recorded. Patient InstructionsNo instructions recorded. Reason for Referral None Reported. Results Created Date Observation Date Name Description Value Unit Range Abnormal Flag Note LastModifiedBy Organization Detail LastModifiedTime 10/21/19 audio gram No observ ation record ed. [email or web address] Not Available 04/2023 13:25:24 11/09/19 24 05/23/2019 [...] audio gram No observ ation record ed. [email or web address] Not Available 12/19 12:12:11 Result Notes None recorded. 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 66398468019 100 Active 2022 Sensorine ural hearing loss, unilatera l, right ear, with restricte d hearing on the contralat eral side; Note: Date Diagnosed : 3 10:57 AM (H90.A21) Not Available [facility] 4 03:06:09 Disorder of right Eustachia n tube 99742773948 23995 Active 2018 Other specified disorders of Eustachia n tube, right ear; Note: Date Diagnosed : 09/06/2018 10:33 AM (H69.81) Not Available [facility] 4 03:06:10 Mixed conductiv e and sensorine ural hearing loss of left ear 64081438993 107 Active 3 Mixed conductiv e and sensorine ural hearing loss, unilatera l, left ear with restricte d hearing on the contralat eral side; Note: Date Diagnosed : 3 10:57 AM (H90.A32) Not Available [facility] 4 03:06:09 Tinnitus of right ear 19748798570 08 Active 2018 Tinnitus, right ear; Note: Date Diagnosed : 09/06/2018 10:33 AM (H93.11) Not Available [facility] 4 03:06:09 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 07445843507 109 Active 2018 Sensorine ural hearing loss, unilatera l, left ear, with restricte d hearing on the contralat eral side; Note: Date Diagnosed : 09/06/2018 10:33 AM (H90.A22) Not Available [facility] 4 03:06:09 Mixed conductiv e and sensorine ural hearing loss, bilateral 977338713 Active 2019 Mixed conductiv e and sensorine ural hearing loss, bilateral ; Note: Date Diagnosed : 05/23/2019 11:38 AM (H90.6) Not Available [facility] 4 03:06:11 Mixed conductiv e and sensorine ural hearing loss of right ear 03543252987 105 Active 2018 Mixed conductiv e and sensorine ural hearing loss, unilatera l, right ear with restricte d hearing on the contralat eral side; Note: Date Diagnosed : 09/06/2018 10:33 AM (H90.A31) Not Available [facility] 4 03:06:11 Bilateral disorder of Eustachia n tubes 86344337063 56824 Active 2019 Other specified disorders of Eustachia n tube, bilateral ; Note: Date Diagnosed : 04/11/2019 10:17 AM (H69.83) Not Available [facility] 4 03:06:09 Chronic serous otitis media of right ear 286724059 Active 2023 ALEE HESS MD [address] [facility],[place] [address], [place], [address] , [place] - [facility] 4 09:05:26 Sensorine ural hearing loss of bilateral ears 339020306 Active 2023 ISSAC PALACIO, [facility] [address] [facility],[place] [address], [place], [address] , [facility] - [facility] [place] [facility] 13:45:48 Problem Notes None recorded. Procedures Surgical History Date Name Laterality Status Provider Name and Address Organization Details Recorded Time 4 Air & Speech Audio with Tymps - 93439, 16158 & 32808 completed ISSAC PALACIO [facility] 100 [facility],[place] [address], [place], [address], [facility] - [facility] 12/28/2023 13:45:03 Myringotomy w/Placement of Tube right completed ALEE HESS MD 100 [facility],[place] [address], [place], [address], [facility] - [facility] 11/22/2023 10:11:03 Comp Audio with Tymps - 06292 & 74559 completed DOM JEFFERSON [facility] [address] [facility],[place] [address], [place], [address], [place] - [facility] 10/21/2023 09:56:25 Imaging Results Imaging Date Name Status [facility]Modified by [facility] Details LastModified Time 10/21/2023 audiogram completed [email or web address] Information n ot available 10/21/2023 13:25:24 05/23/2019 [...] not available 11/09/2023 02:02:47 12/29/2023 audiogram completed [email or web address] Information n ot available 12/29/2023 12:12:11 Procedure Notes None recorded. Medical Equipment None Reported. Medications Name Sig Start Date Stop Date Status Note LastModified by Organization Details LastModified Time atorvasta tin 40 mg tablet TAKE 1 TABLET BY MOUTH DAILY. active Not Available Not Available No t Available cetirizin e 10 mg tablet 07/24 completed Medicati on ID: [id number] D uration Value: 30 Brand Name: cetirizi [...] both nostrils 2019 active Medicati on ID: [id number] D uration Value: 30 Prescri bed By [...] Century Vitamin 2018 active Medicati on ID: [id number] B rand Name: century vitamin Send Method: E-Prescr ibed Sub s Allowed: subs OK Medic ationGen ericName : century vitamin Not Available Not Available Not Available June-estelita 8.6 mg tablet 07/24 completed Medicati on ID: [id number] B rand Name: June-estelita Send Method: E-Prescr [...] Updated DateTime 07/24/2024 162.56 cm 29.2 kg/m2 27381.7 g PAUL KING [place] - [facility] 07/24/2024 13:42:23 Date Recorded Body height Body mass index (BMI) Body weight Provider Name and Address Organization Details Last Updated DateTime 10/21/2023 162.56 cm 29.2 kg/m2 92226.7 g Cam Stubbs [facility] 10/21/2023 09:13:10 Date Recorded Body height Body mass index (BMI) Body weight Provider Name and Address Organization Details Last Updated DateTime 11/24/2023 162.56 cm 29.2 kg/m2 05163.7 g Shyanne Sadler [place] - [facility] 11/24/2023 10:30:47 Date Recorded Body height Body mass index (BMI) Body weight Provider Name and Address Organization Details Last Updated DateTime 12/28/2023 162.56 cm 28.7 kg/m2 88471.93 g Shyanne Sadler [facility] 12/28/2023 14:07:51 Social History None recorded. Functional Status None recorded. Mental Status None recorded. Family History Nothing Reported. Medical History No medical history recorded. Past Encounters Encounter ID Performer Location Encounter Start Date Encounter Closed Date Diagnosis/Indication Diagnosis SNOMED-CT Code Diagnosis ICD10 Code Diagnosis Note [id number] PA-C [facility] [address] [address] 10/21/2023 08:46:53 10/21/2023 10:12:46 Bilateral chronic serous otitis 298610550 H65.23 Bilateral disorder of Eustachian tubes 0040199822 505143 H69.83 [id number] NOAH ROSEN [facility] [address] [address] 10/21/2023 09:56:05 10/25/2023 07:12:55 Mixed conductive and sensorineural hearing loss of right ear 9052308629 9105 H90.A31 Sensorineu ral hearing loss in left ear 5614355624 9109 H90.A22 Audiologic al evaluation results: Right [...] Cou ld not maintain a hermetic seal}} [id number] ALEE HESS MD [facility] [address] [address] 11/24/2023 10:23:04 11/24/2023 11:04:34 Chronic serous otitis media of right ear 142803919 H65.21 ALEE HESS MD [facility] [address] [address] 12/28/2023 13:20:30 12/28/2023 14:23:26 Chronic serous otitis media of right ear 747413586 H65.21 NOAH CARVAJAL [facility] [address] [address] 12/28/2023 13:44:26 12/29/2023 07:28:34 Sensorineural hearing loss of bilateral ears 869191097 H90.3 Audiologic al evaluation results:Ri t ear:{{Norm [...] last visit. Ears are now symmetrica l. [id number] ALEE HESS MD [facility] [address] [place] [address] 07/24/2024 13:36:19 07/24/2024 13:54:39 Chronic serous otitis media of right ear 335028660 H65.21 Health Concerns Section Related Observation LastModified by Organization Detai ls LastModified Time None Recorded Concern Status LastModified by Organization Details LastModified Time None Recorded Advance Directives Directive None Recorded Payers Insurance Date Sequence Insurance Name Policy Number Policy Duque Covered Member ID Duque Member ID Guarantor Name 07/23/2024 1 [place]: [employer] Lobito Novak [place] [id number] Lobito B [place] 07/25/2024 2 [place] [employer] 104 Lobito B [place] [id number] Lobito B [place] Notes Date Note Type Note Provider Name and Address Organization Details Recorded Time 10/21/2023 text/html 82-year-old male with history of recurrent effusion of the right ear presents for reevaluation. Had RMT in office about a year ago but feels his tube has come out. Cannot hear much out of the right side. ALEE HESS MD [address] [place] [address],[place] [address], [place], [address], [facility] - [facility] 10/21/2023 17:28:10 11/24/2023 text/html prev hx of right MT with Dr Moss12/31/22 - Right myringotomy tube, Yolie nasopharynx exam 06/2020 - benignnow tube is out and he feels hearing is worse on right. left side is OK PV 10/21/23: Deon noted right serous effusion retired from [employer]. 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 - [facility] 07/24/2024 13:52:37
== END 2024-08-07 11:15 | disposition home or self-care (01) ==
LOC: HO.MRI 11:14
PROVIDERS: Visit Provider Internal Medicine Medical Oncology
DX: R91.8 Other nonspecific abnormal finding of lung field (principal)
CPT/HCPCS: 70553; A9585

== ENCOUNTER 2024-08-20 08:31 | Day surgery (SDC) | payer MEDICARE, BC, SELFPAY ==
--- OUTSIDE RECORDS SUMMARY | 2024-08-07 13:01 | XMS_ITS | Continuity of Care Document ---
Demographics Address [address] [facility] [address] [place] [address] Home Phone Preferred Language en Marital Status Unknown Quaker Affiliation Unknown Race Unknown Ethnic Group Unknown Author Name [facility] Organization [facility] Care Team Providers Care Tool Crib Manager Name Role Phone [facility] Unavailable Unavailable Problems Combined list of problems [...] BY MOUTH ORAL ACTIVE JODI VOSS 2020 [facility] ASPIRIN 81MG TAB,EC TAKE ONE TABLET BY MOUTH ORAL ACTIVE OLAF VOSSELISABETH Peraza 2020 [facility] ATORVASTATI N CA 80MG TAB TAKE ONE TABLET BY MOUTH AT BEDTIME ORAL ACTIVE MAYNOR BOCANEGRA 2024 [facility] LISINOPRIL TAB TAKE BY MOUTH ORAL ACTIVE SHANIKAJODI Stu 2020 [facility] METOPROLOL SUCCINATE TAB,SA TAKE BY MOUTH ORAL ACTIVE OSHINSLUISAJODI J 2020 [facility] TAMSULOSIN (1ST LINE ALPHA SUE) CAP,ORAL TAKE BY MOUTH ORAL ACTIVE OSJAJANSJODI MORAN Stu 2020 [facility] Immunizations Combined list of available immunizations from the Department of Defense and Veterans Affairs facilities. 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 Comments Source INFLUENZA, UNSPECIFIED FORMULATION 2022 88 complet ed Booster for Series, HISTORICA L INFORMATI ON - FROM OTHER PROVIDER, [facility] INFLUENZA, UNSPECIFIED FORMULATION 2021 88 complet ed HISTORICA L INFORMATI ON - SOURCE UNSPECIFI ED, [facility] COVID-19 (MODERNA), MRNA, LNP-S, PF, 100 MCG/0.5 ML DOSE 2 2020 207 complet ed MOD; [id number]; 1 [facility] COVID-19 (MODERNA), MRNA, LNP-S, PF, 100 MCG/0.5 ML DOSE 1 2020 207 complet ed MOD; [id number]; 1 [facility] FLU,3 YRS (HISTORICAL) 2001 88 complet ed [...] [facility] En[facility] [id number] 05/17 [facility] OFFICE O/P EST LOW 20 MIN 40207-7.63 [id number] Diagnos is: ICD-10- CM H53.30 Unspeci fied disorde r of binocul ar vision LUIZ BOCANEGRA RD D 08/02 [facility] [place]PRE [place] PT 1/ [address]9399-1.63 [id number] Diagnos is: ICD-10- CM 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, hole, or pseudoh ole, right eye MERARTHURANGELLA H B 12/13 [facility] CPTR OPHTH DX IMG POST SEGMT 53516-2.63 [id number] Diagnos is: ICD-10- CM 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, hole, or pseudoh ole, right eye MERARTHUR,ANGELLA H B 12/13 [facility] FIT SPECTACLES MONOFOCAL 99689-3.63 [id number] Diagnos is: ICD-10- CM Z46.0 Encount er for fit/adj st of spectac les and contact lenses ANGELLA ULRICH H B 12/13 [facility] OFFICE O/P EST LOW 20 MIN 19561-2.63 [id number] Diagnos is: ICD-10- CM H54.7 Unspeci fied visual loss LUIZ BOCANEGRA RD D 08/01 [facility] Social History Combined list of available smoking, tobacco, and other social history from Department of Defense and Veterans Affairs facilities. Social History Type Response Date Comment Sourc e Tobacco smoking status NHIS VA-TOBACCO USE FORMER CIGARETTES 08/01/2024 [facility] History of tobacco use VA-TOBACCO NEVER USED OTHER TYPE 08/01/2024 [facility] History of tobacco use VA-TOBACCO FORMER USER 08/03/2023 [facility] History of tobacco use VA-TOBACCO FORMER USER 08/03/2022 [facility] History of tobacco use HISTORY OF SMOKING 07/05/2001 x 10yrs [place] Plan of Care List of future care activities from Department of Veterans Affairs facilities. Additional future care activities may be listed in the Assessment and Plan section. Date/Time Care Activity Care Activity Detail Facili ty 12/19/2024 AMBULAT[facility] - MEDICINE [facility]
[2024-08-20] VITALS (14 sets, daily range): BP systolic 90–138; BP diastolic 44–93; PULSE 60–80; RESP 13–22; TEMP 36.1–37.1; O2SAT 94–99; BMI 28.6
--- NOTE | ~2024-08-20 | CT_ITS ---
PROCEDURE: CT GUIDED BIOPSY, LUNG CLINICAL INFORMATION: Left upper lobe mass COMPARISON: CT chest 07/22/2024 TECHNIQUE: Following explaining CT fluoroscopy guided left upper lobe mass core biopsy procedure, benefits and risk, a written consent was obtained. Patient was evaluated for conscious sedation and recorded. Patient was placed supine on CT fluoroscopy table and preliminary ultrasound imaging was obtained through the upper hemithorax. An optimal slice was selected marker was placed along the left anterolateral chest. Repeat imaging was performed and a optimal marker was selected and marked on the skin. The marked site was cleaned and draped in usual sterile manner. 1% lidocaine was administered at puncture site. Conscious sedation was administered during the exam and patient monitored by IR nurse and the radiologist. A small skin incision was performed. A 20-gauge guide needle was advanced from the left anterolateral chest into the pleural space where the tumor is has violated the pleural space. Coaxially a 20-gauge needle was then advanced and 4 pass biopsy of the left upper lobe mass was performed. Postbiopsy repeat CT imaging of kidneys revealed no visible pneumothorax. Repeat chest x-ray was to be obtained via was later prior to discharge. A simple band aid was applied at puncture site. Patient targeted procedure extremely well. Conscious sedation with 25 mg of fentanyl and 0.5 mL of Versed was administered during exam. This CT examination was performed using dose optimization techniques as appropriate, variously including the following: *Automated exposure control *Adjustment of mA and/or kV according to patient size (this includes techniques or standardized protocols for targeted exams where dose is matched to indication/reason for exam; i.e. extremities or head) *Use of iterative reconstruction technique FINDINGS: On coronary CT imaging there is a large left upper lobe mass pleural-based measuring 3.5 x 3.5 cm. There is a right upper lobe mass seen along the pleural laterally. A to pass left upper lobe biopsy was performed and sent to lab as per referring physician's. Postprocedure there were no immediate complications. No pneumothorax. No intervention needed. CT/CT biopsy lung LT IMPRESSION: Successful CT fluoroscopy guided left upper lobe mass biopsy performed. Dose area product: 186 mGy. Electronically signed by: Frank Daniels MD 08/20/2024 04:49 PM EDT
--- NOTE | ~2024-08-20 | XR_ITS ---
EXAMINATION: XR CHEST CLINICAL INFORMATION: R/O pneumo, s/p left lung biopsy COMPARISON: 08/04/2024. TECHNIQUE: Frontal view of the chest was obtained. FINDINGS: The cardiac, hilar, and mediastinal contours are normal. Rounded opacity left lateral apex. No perceptible pneumothorax or effusion. Right lung clear. No focal osseous or soft tissue abnormality. XR/XR chest 1V IMPRESSION: No perceptible pneumothorax status post left lung biopsy. Electronically signed by: Jeremías Parra MD 08/20/2024 03:40 PM EDT
--- NOTE | 2024-08-20 09:50 | PC.NURSE ---
labs being drawn
[2024-08-20 10:01] LABS: INTERNATIONAL NORM RATIO 1.1 (0.9-1.1); Prothrombin Time 12.9 SEC (10.9-12.4)
[2024-08-20] MEDS: Midazolam HCl 2 MG/2 ML VIAL 0.5 MG IVPUSH (13:39)
[2024-08-20] MEDS: fentaNYL citrate/PF 100 MCG/2 ML VIAL 25 MCG IVPUSH (13:40)
== END 2024-08-20 16:06 | disposition home or self-care (01) ==
PROVIDERS: Radiology Diagnostic Radiology; PCP Internal Medicine; Visit Provider Internal Medicine Medical Oncology
DX: C34.12 Malignant neoplasm of upper lobe, left bronchus or lung (principal); J43.9 Emphysema, unspecified; R60.9 Edema, unspecified; R53.83 Other fatigue; I73.9 Peripheral vascular disease, unspecified; Z95.820 Peripheral vascular angioplasty status with implants and grafts; I25.10 Atherosclerotic heart disease of native coronary artery without angina pectoris; Z95.5 Presence of coronary angioplasty implant and graft; I12.9 Hypertensive chronic kidney disease with stage 1 through stage 4 chronic kidney disease, or unspecified chronic kidney disease; N18.2 Chronic kidney disease, stage 2 (mild); E78.5 Hyperlipidemia, unspecified; E87.5 Hyperkalemia; I65.23 Occlusion and stenosis of bilateral carotid arteries; I25.2 Old myocardial infarction; N40.0 Benign prostatic hyperplasia without lower urinary tract symptoms; Z86.718 Personal history of other venous thrombosis and embolism; Z79.899 Other long term (current) drug therapy; Z87.891 Personal history of nicotine dependence
CPT/HCPCS: 32408; 36415; 71045; 85610; 88305; 88341; 88342; 99152; J2003; J2250; J3010

== ENCOUNTER → 2024-08-20 15:00 | Outpatient (BNV) | payer MEDICARE, BC, SELFPAY | PROVIDERS: PCP Internal Medicine; Visit Provider Radiology Diagnostic Radiology | DX: R91.1 Solitary pulmonary nodule (principal) | CPT/HCPCS: 32408; 71045 ==

== ENCOUNTER 2024-08-28 08:30 | Outpatient (REF) | payer MEDICARE, BC, SELFPAY ==
--- NOTE | ~2024-08-28 | PE_ITS ---
PT/CT SKULL BASE TO MID THIGH HISTORY: Left lung mass. Prior biopsy demonstrated squamous cell carcinoma. COMPARISON: Correlation is made with a CT of the chest with contrast dated 07/22/2024. TECHNIQUE: Images were obtained from the skull base to the proximal thighs. Image reconstruction was performed in the axial, coronal, and sagittal planes. Fusion images were obtained and evaluated using the concurrently performed unenhanced CT scan. Images were obtained approximately 61 minutes after the intravenous administration of 17.2 mCi F18-FDG. A low dose 3.[address] scan was acquired for attenuation correction. PET and CT in-line fusion was performed for anatomical correlation of the functional information obtained from FDG PET imaging. FINDINGS: HEAD/NECK: No abnormal FDG uptake is identified in the head or neck. 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 CHEST: Again seen is an approximately 4.0 cm mass in the left upper lobe abutting the pleural surface. This demonstrates an SUV max of 22.6. The previously seen right upper lobe nodule is less prominent and demonstrates no increased FDG uptake. This may be inflammatory in nature. There is a 10 mm AP window lymph node which demonstrates an SUV max of 3.1. No definite hilar uptake. There are trace bilateral pleural effusions. Physiologic cardiac activity is noted. ABDOMEN/PELVIS: No abnormal FDG uptake is identified in the abdomen or pelvis. Physiologic activity is noted in the GI and tracts, although the left kidney is markedly atrophic and demonstrates no significant activity. There is cholelithiasis. An aortobifemoral bypass graft is noted. The prostate is enlarged. There is diverticulosis of the sigmoid colon, without evidence of diverticulitis. SKELETAL: No suspicious musculoskeletal uptake is identified. There is grade II spondylolisthesis of L5 on S1. PET/CT SCAN PET/PET CT fusion skull to thigh IMPRESSION: 1. FDG avid 4.0 cm left upper lobe mass, previously biopsied and shown to represent squamous cell carcinoma. 2. 10 mm AP window lymph node demonstrating an SUV max of 3.1, suspicious for galilea involvement. 3. No evidence of distant metastatic disease. 4. Incidental findings as discussed. Electronically signed by: Gino Castro MD 08/28/2024 01:47 PM EDT
== END 2024-08-28 08:31 | disposition home or self-care (01) ==
LOC: HO.PET 08:30
PROVIDERS: Visit Provider Internal Medicine Medical Oncology
DX: Z13.89 Encounter for screening for other disorder (principal)

== ENCOUNTER 2024-09-07 07:35 | Outpatient (REF) | payer MEDICARE, BC, SELFPAY ==
--- NOTE | 2024-09-07 | PFT_ITS ---
Indication: Preop Spirometry FEV1 to FVC 63%; FEV1 1.7 L; FVC 2.8 L. There is a significant response to bronchodilators noted. 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 There is a significant response to bronchodilators noted. Lung volumes also demonstrate a mild restrictive ventilatory defect which could be due to parenchymal lung conditions. The patient also has a mild diffusion impairment. Clinical correlation warranted. MTDD
--- OUTSIDE RECORDS SUMMARY | 2024-09-07 07:37 | XMS_ITS | Data Portability ---
Author Organization [place] - [facility] Formerly [facility], Allergy Address [address] [address] Care Team Providers Care Audio Video Technician Name Role Phone FRANCISCO EDGAR Primary Care Provider Assessment Encounter Date Assessment Date Assessment LastModified by Organization Details LastModified Time 11/24/2023 11/24/2023 Informed Consent for right Myringotomy [...] were discussed. We discussed the risk of halfway perforation following tube extrusion, with possible need [...] him shortly [email or web address] Not available 07/24/2024 13:51:54 08/30/2024 08/30/2024 Informed Consent for right Myringotomy with Tympanostomy [...] were discussed. We discussed the risk of halfway perforation following tube extrusion, with possible need [...] are no longer present. [email or web address] Not available 08/27/2024 12:12:31 Plan of Treatment Reminders Order Date Submit Date Provider Last Modified By Organization Details Last Modified Time Details Appointments PROCEDURE 30 2024 11:30A Meir HESS MD Not available Not available Not available Lab None recorded. Referral None recorded. Procedures None recorded. Surgeries None recorded. Imaging None recorded. Medication Orders ofloxacin 0.3 % ear drops 2024 025 [facility], [address] [place], [address], 08/30/2024 16:22:13 ofloxacin 0.3 % ear drops 2023 024 [facility], [address] [place], [address], 08/30/2024 15:54:31 Patient TargetsNo targets recorded. Patient InstructionsNo instructions recorded. Reason for Referral None Reported. Results Created Date Observation Date Name Description Value Unit Range Abnormal Flag Note LastModifiedBy Organization Detail LastModifiedTime 11/09/19 24 05/23/2019 imagi ng/di agnos tic [...] audio gram No observ ation record ed. [email or web address] Not Available 12/19 12:12:11 Result Notes None recorded. 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 80914207882 100 Active 2022 Sensorine ural hearing loss, unilatera l, right ear, with restricte d hearing on the contralat eral side; Note: Date Diagnosed : 3 10:57 AM (H90.A21) Not Available [facility] 4 03:06:09 Disorder of right Eustachia n tube 30702172809 78520 Active 2018 Other specified disorders of Eustachia n tube, right ear; Note: Date Diagnosed : 09/06/2018 10:33 AM (H69.81) Not Available [facility] 4 03:06:10 Mixed conductiv e and sensorine ural hearing loss of left ear 82295256898 107 Active 2022 Mixed conductiv e and sensorine ural hearing loss, unilatera l, left ear with restricte d hearing on the contralat eral side; Note: Date Diagnosed : 3 10:57 AM (H90.A32) Not Available [facility] 4 03:06:09 Tinnitus of right ear 49678066823 08 Active 2018 Tinnitus, right ear; Note: Date Diagnosed : 09/06/2018 10:33 AM (H93.11) Not Available [facility] 4 03:06:09 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 01133349748 109 Active 2018 Sensorine ural hearing loss, unilatera l, left ear, with restricte d hearing on the contralat eral side; Note: Date Diagnosed : 09/06/2018 10:33 AM (H90.A22) Not Available [facility] 4 03:06:09 Mixed conductiv e and sensorine ural hearing loss, bilateral 087475299 Active 2019 Mixed conductiv e and sensorine ural hearing loss, bilateral ; Note: Date Diagnosed : 05/23/2019 11:38 AM (H90.6) Not Available [facility] 4 03:06:11 Mixed conductiv e and sensorine ural hearing loss of right ear 42824663496 105 Active 2018 Mixed conductiv e and sensorine ural hearing loss, unilatera l, right ear with restricte d hearing on the contralat eral side; Note: Date Diagnosed : 09/06/2018 10:33 AM (H90.A31) Not Available [facility] 4 03:06:11 Bilateral disorder of Eustachia n tubes 90801773810 47691 Active 2019 Other specified disorders of Eustachia n tube, bilateral ; Note: Date Diagnosed : 04/11/2019 10:17 AM (H69.83) Not Available [facility] 4 03:06:09 Chronic serous otitis media of right ear 104979422 Active 2023 ALEE HESS MD [address] [place] [address],[place] [address], [facility] [place], [address] , [place] - [facility] [place] 4 09:05:26 Sensorine ural hearing loss of bilateral ears 141866265 Active 2023 NOAH CARVAJAL [address] [place] [address],[place] [address], [facility] [place], [address] , [facility] - [facility] [place] 4 13:45:48 Problem Notes None recorded. Procedures Surgical History Date Name Laterality Status Provider Name and Address Organization Details Recorded Time 5 Myringotomy w/Placement of Tube right completed ALEE HESS MD [address] [place] [address],[address], [address], [facility] - [facility] [place] 08/27/2024 12:11:54 4 Air & Speech Audio with Tymps - 24975, 94689 & 66307 completed NOAH CARVAJAL [address] [place] [address],[address], [address], [facility] - [facility] [place] 12/28/2023 13:45:03 4 Myringotomy w/Placement of Tube right completed ALEE HESS MD [address] [place] [address],[address], [address], [facility] - [facility] [place] 11/22/2023 10:11:03 4 Comp Audio with Tymps - 67452 & 28860 completed NOAH ROSEN [address] [place] [address],[address], [address], [facility] - [facility] 10/21/2023 09:56:25 Imaging Results None recorded. Procedure Notes None recorded. Medical Equipment None Reported. Medications Name Sig Start Date Stop Date Status Note LastModified by Organization Details LastModified Time atorvasta tin 40 mg tablet TAKE 1 TABLET BY MOUTH DAILY. active Not Available Not Available No t Available cetirizin e 10 mg tablet 07/24 completed Medicati on ID: [id number] D uration Value: 30 Brand Name: cetirizi [...] Not Available ofloxacin 0.3 % eye drops Apply 08/30 completed Medicati on ID: [id number] B rand Name: ofloxaci n Send Method: E-Prescr ibed Sub s Allowed: subs OK Speci al Instruct ion: apply 5 drops to each ear BID x 3 days Med ication enericNa me: ofloxaci n Not Available Not Available Not Available lisinopri l 20 mg tablet TAKE [...] DAY BY OTIC ROUTE FOR 3 DAYS. 08/30 completed Not Available Not Available Not Available tamsulosi n 0.4 mg capsule TAKE ONE CAPSULE BY MOUTH DAILY AT BEDTIME active Not Available Not Available No t Available docusate sodium 100 mg capsule TAKE 1 CAPSULE BY MOUTH DAILY NEEDED FOR CONSTIPA TION. 07/24 completed Not Available Not Available Not Available fluticaso ne propionat e 50 mcg/actua tion nasal spray,skylar pension 2 puff into both nostrils 08/30 completed Medicati on ID: [id number] D uration Value: 30 Prescri bed By Name: Michael Moss MD Brand Name: fluticas one propiona te Send Method: E-Prescr ibed Sub s Allowed: subs OK Medic ationGen ericName : fluticas one propiona te Not Available Not Available Not Available finasteri de 5 mg tablet TAKE 1 TABLET BY MOUTH ONCE A DAY. active Not Available Not Available No t Available Vitamin 2018 active Medicati on ID: [id number] B rand Name: century vitamin Send Method: E-Prescr ibed Sub s Allowed: subs OK Medic ationGen ericName : century vitamin Not Available Not Available Not Available June-estelita 8.6 mg tablet 07/24 completed Medicati on ID: [id number] B rand Name: June-estelita Send Method: E-Prescr [...] Updated DateTime 07/24/2024 162.56 cm 29.2 kg/m2 59520.7 g PAUL KING [place] - [facility] 07/24/2024 13:42:23 Date Recorded Body height Provider Name an d Address Organization Details Last Updated DateTime 08/30/2024 162.56 cm PAUL KING [place] [facility] 08/30/2024 15:54:14 Date Recorded Body height Body mass index (BMI) Body weight Provider Name and Address Organization Details Last Updated DateTime 11/24/2023 162.56 cm 29.2 kg/m2 36484.7 g Shyanne Sadler [place] - [facility] 11/24/2023 10:30:47 Date Recorded Body height Body mass index (BMI) Body weight Provider Name and Address Organization Details Last Updated DateTime 12/28/2023 162.56 cm 28.7 kg/m2 06768.93 g Shyanne Sadler [place] - [facility] 12/28/2023 14:07:51 Social History None recorded. Functional Status None recorded. Mental Status None recorded. Family History Nothing Reported. Medical History No medical history recorded. Past Encounters Encounter ID Performer Location Encounter Start Date Encounter Closed Date Diagnosis/Indication Diagnosis SNOMED-CT Code Diagnosis ICD10 Code Diagnosis Note [id number] [facility]-C [facility] [address] [address] 10/21/2023 08:46:53 10/21/2023 10:12:46 Bilateral chronic serous otitis 332395877 H65.23 Bilateral disorder of Eustachian tubes 8175884172 868118 H69.83 [id number] NOAH ROSEN [facility] [address] [address] 10/21/2023 09:56:05 10/25/2023 07:12:55 Mixed conductive and sensorineural hearing loss of right ear 2612560513 9105 H90.A31 Sensorineu ral hearing loss in left ear 3047552948 9109 H90.A22 Audiologic al evaluation results: Right ear: Moderate sloping to profound mixed hearing loss with excellent word recognitio n. Left ear: Normal through 2 kHz sloping to profound sensorineu ral hearing loss with excellent word recognitio n. Tympanomet ry: Right Ear:Type B Left Ear:Type A [id number] ALEE HESS MD [facility] [address] [address] 11/24/2023 10:23:04 11/24/2023 11:04:34 Chronic serous otitis media of right ear 620137196 H65.21 ALEE HESS MD [facility] [address] [address] 12/28/2023 13:20:30 12/28/2023 14:23:26 Chronic serous otitis media of right ear 781389840 H65.21 NOAH CARVAJAL [facility] [address] [address] 12/28/2023 13:44:26 12/29/2023 07:28:34 Sensorineural hearing loss of bilateral ears 030436175 H90.3 Audiologic al evaluation results:Ri ght ear:Normal sloping to severe sensorineu ral hearing loss with excellent word recognitio n.Left ear:DNT today.Tymp anometry:R ight Ear:Could not maintain a hermetic sealLeft Ear:DNT Significan t improvemen t since last visit. Ears [place] symmetrica [place]. [id number] ALEE HESS MD [facility] [address] [address] 07/24/2024 13:36:19 07/24/2024 13:54:39 Chronic serous otitis media of right ear 454543395 H65.21 [id number] ALEE HESS MD [facility] [address] [address] 08/30/2024 15:32:10 08/30/2024 16:34:09 Chronic serous otitis media of right ear 605443720 H65.21 Health Concerns Section Related Observation LastModified by Organization Detai ls LastModified Time None Recorded Concern Status LastModified by Organization Details LastModified Time None Recorded Advance Directives Directive None Recorded Payers Insurance Date Sequence Insurance Name Policy Number Policy Duque Covered Member ID Duque Member ID Guarantor Name 08/27/2024 1 MEDICARE B-[place]: [facility] [employer] Lobito Cast [id number] Lobito Mckeonnanathen 08/27/2024 2 [id number] Lobito Novak Nghiaissonnanathen [id number] Lobito Cast Notes Date Note Type Note Provider Name and Address Organization Details Recorded Time 11/24/2023 text/html prev hx of right MT with Dr Moss12/31/22 - Right myringotomy tube, Ploskyhad nasopharynx exam 06/2020 - benignnow tube is out and he feels hearing is worse on right. 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 has apt next week to go over findings. 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
[2024-09-07 08:44] VITALS: PULSE 69; O2SAT 96
== END 2024-09-07 07:36 | disposition home or self-care (01) ==
LOC: HO.RESP 07:35
PROVIDERS: PCP Internal Medicine; Visit Provider Internal Medicine Medical Oncology
DX: C34.90 Malignant neoplasm of unspecified part of unspecified bronchus or lung (principal)
CPT/HCPCS: 94010; 94640; 94727; 94729

== ENCOUNTER → 2024-09-07 08:00 | Outpatient (BNV) | payer MEDICARE, BC, SELFPAY | PROVIDERS: PCP Internal Medicine; Visit Provider Hospitalist | DX: Z01.818 Encounter for other preprocedural examination (principal) | CPT/HCPCS: 94060; 94727; 94729 ==

== ENCOUNTER → 2024-09-10 09:44 | Outpatient (REF) | payer MEDICARE, BC, SELFPAY ==
--- NOTE | ~2024-09-10 | XR_ITS ---
EXAMINATION: XR CHEST 2 VIEWS HISTORY: Part of the nuclear medicine scan image COMPARISON: Comparison is made with the prior examination dated 08/20/2024. FINDINGS: PA and lateral views of the chest are submitted. Again seen is a left upper lobe mass. The mass is larger than on the prior study, measuring 5.4 x 4.1 cm (previously 4.4 x 3.2 cm). The right lung is clear. There is no pleural effusion, pneumothorax, or pulmonary vascular congestion. The heart is normal in size. The aorta is calcified. 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 Electronically signed by: Gino Castro MD 09/10/2024 11:27 AM EDT
--- NOTE | ~2024-09-10 | NM_ITS ---
EXAMINATION: NM LUNG PERFUSION WITH QUANTIFICATION HISTORY: Pre op assessment of lung. TECHNIQUE: A quantitative pulmonary perfusion scan was performed following the intravenous administration of 4.0 mCi technetium 99m-MAA. Images were obtained in multiple projections. COMPARISON: Correlation is made with a PET/CT scan dated 08/28/2024. FINDINGS: There is patchy uptake of the radiopharmaceutical bilaterally. There is a rounded nonsegmental perfusion defect in the left upper lobe, consistent with the patient's known mass in this region. No segmental or large subsegmental perfusion defects are identified. The split perfusion is 45% on the left and 55% on the right. NM/NM pul perf susana dif w image IMPRESSION: Split pulmonary perfusion of 45% on the left and 55% on the right. Electronically signed by: Gino Castro MD 09/10/2024 11:54 AM EDT
--- OUTSIDE RECORDS SUMMARY | 2024-09-10 10:33 | XMS_ITS | Data Portability ---
Author Organization [place] - [facility], Allergy Address [address] [address] Care Team Providers Care Carpet Binder Name Role Phone FRANCISCO EDGAR Primary Care [...] were discussed. We discussed the risk of mcfp perforation following tube extrusion, with possible need [...] were discussed. We discussed the risk of mcfp perforation following tube extrusion, with possible need [...] ofloxacin 0.3 % ear drops 2024 025 [facility], [address] [place], [address], 08/30/2024 16:22:13 ofloxacin 0.3 % ear drops 2023 024 [facility], [address] [place], [address], 08/30/2024 15:54:31 Patient TargetsNo targets recorded. Patient [...] audio gram No observ ation record ed. [email or web address] Not Available 12/19 12:12:11 Result Notes None recorded. 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 99168957831 100 Active 2022 Sensorine ural hearing loss, unilatera l, right ear, with restricte d hearing on the contralat eral side; Note: Date Diagnosed : 3 10:57 AM (H90.A21) Not Available [facility] 4 03:06:09 Disorder of right Eustachia n tube 73030736693 49607 Active 2018 Other specified disorders of Eustachia n tube, right ear; Note: Date Diagnosed : 09/06/2018 10:33 AM (H69.81) Not Available [facility] 4 03:06:10 Mixed conductiv e and sensorine ural hearing loss of left ear 25935160658 107 Active 2022 Mixed conductiv e and sensorine ural hearing loss, unilatera l, left ear with restricte d hearing on the contralat eral side; Note: Date Diagnosed : 3 10:57 AM (H90.A32) Not Available [facility] 4 03:06:09 Tinnitus of right ear 27383585420 08 Active 2018 Tinnitus, right ear; Note: Date Diagnosed : 09/06/2018 10:33 AM (H93.11) Not Available [facility] 4 03:06:09 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 24046485204 109 Active 2018 Sensorine ural hearing loss, unilatera l, left ear, with restricte d hearing on the contralat eral side; Note: Date Diagnosed : 09/06/2018 10:33 AM (H90.A22) Not Available [facility] 4 03:06:09 Mixed conductiv e and sensorine ural hearing loss, bilateral 190838810 Active 2019 Mixed conductiv e and sensorine ural hearing loss, bilateral ; Note: Date Diagnosed : 05/23/2019 11:38 AM (H90.6) Not Available [facility] 4 03:06:11 Mixed conductiv e and sensorine ural hearing loss of right ear 18017285816 105 Active 2018 Mixed conductiv e and sensorine ural hearing loss, unilatera l, right ear with restricte d hearing on the contralat eral side; Note: Date Diagnosed : 09/06/2018 10:33 AM (H90.A31) Not Available [facility] 4 03:06:11 Bilateral disorder of Eustachia n tubes 61394021551 28566 Active 2019 Other specified disorders of Eustachia n tube, bilateral ; Note: Date Diagnosed : 04/11/2019 10:17 AM (H69.83) Not Available [facility] 4 03:06:09 Chronic serous otitis media of right ear 940486528 Active 2023 ALEE HESS MD [address] [place] [address],[place] [address], [facility] [place], [address] , [place] - [facility] 4 09:05:26 Sensorine ural hearing loss of bilateral ears 625856710 Active [address] [place] [address],[place] [address], [facility] [place], [address] , [place] - [facility] 4 13:45:48 Problem Notes None recorded. Procedures Surgical History Date Name Laterality Status Provider Name and Address Organization Details Recorded Time 5 Myringotomy w/Placement of Tube right completed ALEE HESS MD [address] [place] [address],[address], [address], [place] - [facility] 08/27/2024 12:11:54 4 Air & Speech Audio with Tymps - 56222, 49337 & 28786 completed NOAH CARVAJAL [address] [place] [address],[address], [address], [place] - [facility] 12/28/2023 13:45:03 4 Myringotomy w/Placement of Tube right completed ALEE HESS MD [address] [place] [address],[address], [address], [place] - [facility] 11/22/2023 10:11:03 4 Comp Audio with Tymps - 94574 & 34445 completed NOAH ROSEN [address] [place] [address],[address], [place], [address], [facility] - [facility] 10/21/2023 09:56:25 Imaging Results None recorded. Procedure Notes None recorded. Medical Equipment None Reported. Medications Name Sig Start Date Stop Date Status Note LastModified by Organization Details LastModified Time atorvasta tin 40 mg tablet TAKE 1 TABLET BY MOUTH DAILY. active Not Available Not Available No t Available cetirizin e 10 mg tablet 07/24 completed Medicati on ID: [id number] D uration Value: 30 Brand Name: cetirizi [...] drops Apply 08/30 completed Medicati on ID: [id number] B rand Name: ofloxaci n Send Method: E-Prescr ibed Sub s Allowed: subs OK Speci al Instruct ion: apply 5 drops to each ear BID x 3 days Med icationG enericNa me: ofloxaci n Not Available Not [...] both nostrils 08/30 completed Medicati on ID: [id number] D uration Value: 30 Prescri bed By [...] Available Vitamin 2018 active Medicati on ID: [id number] B rand Name: vitamin Send Method: E-Prescr ibed Sub s Allowed: subs OK Medic ationGen ericName : century vitamin Not Available Not Available Not Available June-estelita 8.6 mg tablet 07/24 completed Medicati on ID: [id number] B rand Name: June-estelita Send Method: E-Prescr [...] Updated DateTime 07/24/2024 162.56 cm 29.2 kg/m2 06697.7 g PAUL KING [place] - [facility] 07/24/2024 13:42:23 Date Recorded Body height Provider Name an d Address Organization Details Last Updated DateTime 08/30/2024 162.56 cm PAUL KING [place] - [facility] 08/30/2024 15:54:14 Date Recorded Body height Body mass index (BMI) Body weight Provider Name and Address Organization Details Last Updated DateTime 11/24/2023 162.56 cm 29.2 kg/m2 86493.7 g Shyanne Sadler [place] - [facility] 11/24/2023 10:30:47 Date Recorded Body height Body mass index (BMI) Body weight Provider Name and Address Organization Details Last Updated DateTime 12/28/2023 162.56 cm 28.7 kg/m2 12916.93 g Shyanne Sadler [place] - [facility] 12/28/2023 14:07:51 Social History None recorded. Functional Status None recorded. Mental Status None recorded. Family History Nothing Reported. Medical History No medical history recorded. Past Encounters Encounter ID Performer Location Encounter Start Date Encounter Closed Date Diagnosis/Indication Diagnosis SNOMED-CT Code Diagnosis ICD10 Code Diagnosis Note [id number] [facility]C [facility] [address] [address] 10/21/2023 08:46:53 10/21/2023 10:12:46 Bilateral chronic serous otitis 742761505 H65.23 Bilateral disorder of Eustachian tubes 8764948769 935470 H69.83 [id number] NOAH ROSEN [facility] [address] [address] 10/21/2023 09:56:05 10/25/2023 07:12:55 Mixed conductive and sensorineural hearing loss of right ear 6009997540 9105 H90.A31 Sensorineu ral hearing loss in left ear 9776664550 9109 H90.A22 Audiologic al evaluation results: Right ear: Moderate sloping to profound mixed hearing loss with excellent word recognitio n. Left ear: Normal through 2 kHz sloping to profound sensorineu ral hearing loss with excellent word recognitio n. Tympanomet ry: Right Ear:Type B Left Ear:Type A [id number] ALEE HESS MD [facility] [address] [address] 11/24/2023 10:23:04 11/24/2023 11:04:34 Chronic serous otitis media of right ear 537717358 H65.21 ALEE HESS MD [facility] [address] [address] 12/28/2023 13:20:30 12/28/2023 14:23:26 Chronic serous otitis media of right ear 006780543 H65.21 NOAH CARVAJAL [facility] [address] [address] 12/28/2023 13:44:26 12/29/2023 07:28:34 Sensorineural hearing loss of bilateral ears 830971510 H90.3 Audiologic al evaluation results:Ri ght ear:Normal sloping to severe sensorineu ral hearing loss with excellent word recognitio n.Left ear:DNT today.Tymp anometry:R ight Ear:Could not maintain a hermetic sealLeft Ear:DNT Significan t improvemen t since last visit. Ears are now symmetrica l. [id number] ALEE HESS MD [facility] [address] [address] 07/24/2024 13:36:19 07/24/2024 13:54:39 Chronic serous otitis media of right ear 401198766 H65.21 [id number] ALEE HESS MD [facility] [address] [address] 08/30/2024 15:32:10 08/30/2024 16:34:09 Chronic serous otitis media of right ear 640337383 H65.21 Health Concerns Section Related Observation LastModified by Organization Detai ls LastModified Time None Recorded Concern Status LastModified by Organization Details LastModified Time None Recorded Advance Directives Directive None Recorded Payers Insurance Date Sequence Insurance Name Policy Number Policy Duque Covered Member ID Duque Member ID Guarantor Name 08/27/2024 1 [place]ARE [place]: [facility] [employer] Lobito Cast [id number] Lobito Mckeonnanathen 08/27/2024 2 [id number] Lobito Novak Nghialenananathen [id number] Lobito Cast Notes Date Note Type Note [...] well travelled ALEE HESS MD [address] [place] [facility], [place], [address], [facility] - [facility] 11/24/2023 11:04:07 12/28/2023 text/html tube checkfeels hearing is improved PV 11/24/23 [place]: placement myringotomy tubeprev hx of right MT with Dr Moss12/31/22 - Right myringotomy tube, [place] exam 06/2020 - benign 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
== END ==
LOC: HO.NUCMED 09:44
PROVIDERS: PCP Internal Medicine; Visit Provider Internal Medicine Medical Oncology
DX: C34.90 Malignant neoplasm of unspecified part of unspecified bronchus or lung (principal)
CPT/HCPCS: 71046; 78597; A9540

== ENCOUNTER → 2024-09-10 09:46 | Outpatient (BNV) | payer MEDICARE, BC, SELFPAY | PROVIDERS: PCP Internal Medicine; Visit Provider Radiology Diagnostic Radiology | DX: Z01.811 Encounter for preprocedural respiratory examination (principal); R91.8 Other nonspecific abnormal finding of lung field | CPT/HCPCS: 71046; 78597 ==